=== PATIENT | female | born 1980 | race African-American/Black ===

== ENCOUNTER 2018-07-07 08:24 | Emergency (ER) | payer SELFPAY ==
[2018-07-07] MEDS ORDERED: ONDANSETRON 4 MG/2 ML VIAL ONE (09:03)
[2018-07-07] MEDS ORDERED: NA CHLORIDE 0.9% 1,000 ML ONE (09:03)
[2018-07-07] MEDS ORDERED: KETOROLAC 30 MG/ML INJ ONE (09:03)
[2018-07-07 09:05] LABS: Absolute Lymphocytes (CBC) 2.1 K/uL (0.7-4.9); Absolute Monocytes 0.4 K/uL (0.1-1.3); Absolute Neutrophil 4.4 K/uL (1.8-8.0); Basophils % 4.3 % (0-1.3); Eosinophils % 3.4 % (0-4.4); Hematocrit 50.2 % (36.0-45.0); Lymphocytes % 27.8 % (15.3-44.8); MPV 10.7 fL (7.6-11.3); Monocytes % 5.4 % (3.3-12.3); RBC Red Blood Cell Count 5.55 M/uL (3.86-4.86)
[2018-07-07 09:07] LABS: Urine Blood NEGATIVE (NEG); Urine Glucose 2+ (NEG); Urine Protein 2+ (NEG); Urine Specific Gravity 1.025 (1.005-1.030)
[2018-07-07 09:14] LABS: Potassium 4.4 mmol/L (3.5-5.1)
--- NOTE | 2018-07-07 10:14 | ER ---
Nurse's Notes [facility] Name: Soco Mcgrath Age: 38 yrs Sex: Female : 1980 Arrival Date: 07/07/2018 Time: 08:26 Bed 19 Private MD: Diagnosis: Nausea and vomiting;Diarrhea, unspecified;Uterine fibroids Presentation: 07/07 08:43 Presenting complaint: Patient states: N/V/D since last night, lower abdominal pain for em 3 days, reports still on LMP from 06/28/18, denies fever. Transition of care: patient was not received from another setting of care. Onset of symptoms was July 04, 2018. Risk Assessment: Do you want to hurt yourself or someone else? Patient reports no desire to harm self or others. Initial Sepsis Screen: Does the patient meet any 2 criteria? No. Patient's initial sepsis screen is negative. Does the patient have a suspected source of infection? No. Patient's initial sepsis screen is negative. Care prior to arrival: None. 08:43 Method Of Arrival: Ambulatory em 08:48 Acuity: JESSICA 3 iw Triage Assessment: 08:46 General: Appears in no apparent distress. uncomfortable, Behavior is calm, cooperative. em Pain: Complains of pain in right lower quadrant and left lower quadrant. GI: Reports diarrhea, nausea, vomiting. 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 - Social history:: Smoking status: Patient/guardian denies using tobacco. - Ebola Screening: : Patient negative for fever greater than or equal to 101.5 degrees Fahrenheit, and additional compatible Ebola Virus Disease symptoms Patient denies exposure to infectious person Patient denies travel to an Ebola-affected area in the 21 days before illness onset No symptoms or risks identified at this time. Screenin:46 Abuse screen: Denies threats or abuse. Nutritional screening: No deficits noted. em Tuberculosis screening: No symptoms or risk factors identified. Fall Risk None identified. Assessment: 08:48 General: Appears in no apparent distress. uncomfortable, Behavior is calm, cooperative, em Denies fever. Pain: Complains of pain in right lower quadrant and left lower quadrant Pain currently is 8 out of 10 on a pain scale. Quality of pain is described as crampy, Pain began 2-3 days ago. Is continuous. Neuro: Level of Consciousness is awake, alert, obeys commands, Oriented to person, place, time, situation. Cardiovascular: Capillary refill < 3 seconds Patient's skin is warm and dry. Respiratory: Airway is patent Respiratory effort is even, unlabored, Respiratory pattern is regular, symmetrical. GI: Abdomen is flat, Bowel sounds present X 4 quads. Reports diarrhea, nausea, vomiting. : Reports vaginal bleeding that is moderate flow. Derm: Skin is intact, is healthy with good turgor, Skin is pink, warm \T\ dry. Musculoskeletal: Capillary refill < 3 seconds, Range of motion: intact in all extremities. 09:40 Reassessment: US at bedside. em 10:30 Reassessment: Patient appears in no apparent distress at this time. Patient and/or em family updated on plan of care and expected duration. Pain level reassessed. Patient is alert, oriented x 3, equal unlabored respirations, skin warm/dry/pink. rates pain 5/10 Patient states feeling better. Patient states symptoms have improved. Vital Signs: 08:46 BP 113 / 90; Pulse 108; Resp 20; Temp 98.2; Pulse Ox 99% on R/A; em 09:28 BP 112 / 83; Pulse 90; Resp 18; Pulse Ox 99% on R/A; Pain 5/10; em 10:10 BP 127 / 86; Pulse 91; Resp 18; Pulse Ox 99% on R/A; em ED Course: 08:26 Patient arrived in ED. as 08:26 Kelly Khan FNP-C is PHCP. kb 08:26 Emanuel George MD is Attending Physician. kb 08:41 Urine collected: clean catch specimen, cloudy, Amount Voided: 50mL. ms 08:42 Harvey Barajas LVN is Primary Nurse. em 08:46 Arm band placed on. em 08:46 Patient has correct armband on for positive identification. Placed in gown. Bed in low em position. Call light in reach. Adult w/ patient. Pulse ox on. NIBP on. 08:48 Triage completed. iw 08:52 Initial lab(s) drawn, by me, sent to lab. Inserted saline lock: 20 gauge in right ms forearm, using aseptic technique. Blood collected. 10:09 Ultrasound completed. Patient tolerated well. Notified GLASS CLEANER/PA kelly. sg3 10:18 US Transvaginal Study (Probe) In Process Unspecified. EDMS 10:30 No provider procedures requiring assistance completed. IV discontinued, intact, em bleeding controlled, No redness/swelling at site. Pressure dressing applied. Administered Medications: 09:07 Drug: TORadol 30 mg Route: IVP; Site: right forearm; iw 10:05 Follow up: Response: No adverse reaction; Pain is decreased em 09:07 Drug: NS 0.9% 1000 ml Route: IV; Rate: 1000 ml; Site: right forearm; iw 10:05 Follow up: IV Status: Completed infusion; IV Intake: 1000ml em 09:08 Drug: Zofran 4 mg Route: IVP; Site: right forearm; iw 10:05 Follow up: Response: No adverse reaction; Nausea is decreased em Intake: 10:05 IV: 1000ml; Total: 1000ml. em Outcome: 10:13 Discharge ordered by . kb 10:30 Discharged to home ambulatory. em 10:30 Condition: good 10:30 Discharge instructions given to patient, Instructed on discharge instructions, follow up and referral plans. medication usage, Demonstrated understanding of instructions, follow-up care, medications, Prescriptions given X 2. 10:33 Patient left the ED. em Signatures: Dispatcher [employer] EDKelly Adkins, CEMENT DESPATCH OPERATOR-C CEMENT DESPATCH OPERATOR-Ckb Harvey Barajas, PIANO TEACHER PIANO TEACHER em Iliana Nielsen Irene, CATINA RN Aishwarya Aguirre ms, [place] sg3 Corrections: (The following items were deleted from the chart) 09:08 09:07 NS 0.9% 1000 ml IV at 1000 ml in right antecubital iw iw
--- NOTE | 2018-07-07 10:14 | EDPHYS ---
Physician Documentation [facility] Name: Soco Mcgrath Age: 38 yrs Sex: Female : 1980 Arrival Date: 07/07/2018 Time: 08:26 Bed 19 Private MD: ED Physician Emanuel George HPI: 07/07 10:09 This 38 yrs old Black Female presents to ER via Ambulatory with complaints of Pelvic kb Pain, Vomiting/Diarrhea. 10:09 The patient presents with abdominal pain in the lower abdomen. Onset: The kb symptoms/episode began/occurred 3 day(s) ago. The symptoms do not radiate. Associated signs and symptoms: Pertinent positives: nausea, vomiting, and diarrhea, vaginal bleeding, Pertinent negatives: anorexia, blood in stools, chest pain, constipation, dysuria, fever, headache, palpitations, shortness of breath, vaginal discharge, vomiting blood. The symptoms are described as constant. Modifying factors: The symptoms are alleviated by nothing, the symptoms are aggravated by nothing. Severity of pain: At its worst the pain was moderate in the emergency department the pain is unchanged. The patient has not experienced similar symptoms in the past. The patient has not recently seen a physician. Pt c/o pain in uterus for 3 days and menstrual cycle that has been going on for 9 days. Reports n/v/d started last night. 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 - Social history:: Smoking status: Patient/guardian denies using tobacco. - Ebola Screening: : Patient negative for fever greater than or equal to 101.5 degrees Fahrenheit, and additional compatible Ebola Virus Disease symptoms Patient denies exposure to infectious person Patient denies travel to an Ebola-affected area in the 21 days before illness onset No symptoms or risks identified at this time. ROS: 10:07 Constitutional: Negative for fever, chills, and weight loss, Cardiovascular: Negative kb for chest pain, palpitations, and edema, Respiratory: Negative for shortness of breath, cough, wheezing, and pleuritic chest pain, Back: Negative for injury and pain, MS/Extremity: Negative for injury and deformity, Skin: Negative for injury, rash, and discoloration, Neuro: Negative for headache, weakness, numbness, tingling, and seizure. 10:07 Abdomen/GI: Positive for abdominal pain, nausea, vomiting, and diarrhea, Negative for constipation, abdominal cramps, abdominal distension, anorexia. 10:07 : Positive for vaginal bleeding. Exam: 10:07 Constitutional: This is a well developed, well nourished patient who is awake, alert, kb and in no acute distress. Head/Face: Normocephalic, atraumatic. Chest/axilla: Normal chest wall appearance and motion. Nontender with no deformity. No lesions are appreciated. Cardiovascular: Regular rate and rhythm with a normal S1 and S2. No gallops, murmurs, or rubs. Normal PMI, no JVD. No pulse deficits. Respiratory: Lungs have equal breath sounds bilaterally, clear to auscultation and percussion. No rales, rhonchi or wheezes noted. No increased work of breathing, no retractions or nasal flaring. Skin: Warm, dry with normal turgor. Normal color with no rashes, no lesions, and no evidence of cellulitis. MS/ Extremity: Pulses equal, no cyanosis. Neurovascular intact. Full, normal range of motion. Neuro: Awake and alert, GCS 15, oriented to person, place, time, and situation. Cranial nerves II-XII grossly intact. Motor strength 5/5 in all extremities. Sensory grossly intact. Cerebellar exam normal. Normal gait. 10:07 Abdomen/GI: Inspection: obese Bowel sounds: normal, in all quadrants, Palpation: soft, in all quadrants, mild abdominal tenderness, in the right lower quadrant and left lower quadrant. Vital Signs: 08:46 BP 113 / 90; Pulse 108; Resp 20; Temp 98.2; Pulse Ox 99% on R/A; em 09:28 BP 112 / 83; Pulse 90; Resp 18; Pulse Ox 99% on R/A; Pain 5/10; em 10:10 BP 127 / 86; Pulse 91; Resp 18; Pulse Ox 99% on R/A; em MDM: 08:28 Patient medically screened. kb 10:09 Data reviewed: vital signs, nurses notes. Data interpreted: Pulse oximetry: on room air kb is 99 %. Interpretation: normal. Counseling: I had a detailed discussion with the patient and/or guardian regarding: the historical points, exam findings, and any diagnostic results supporting the discharge/admit diagnosis, lab results, radiology results, the need for outpatient follow up, a family practitioner, an OB/Gyne specialist, to return to the emergency department if symptoms worsen or persist or if there are any questions or concerns that arise at home. 07/07 08:41 Order name: Urine Dipstick--Ancillary (enter results); Complete Time: 09:13 eb 07/07 08:41 Order name: Urine --Ancillary (enter results); Complete Time: 09:13 eb 07/07 08:46 Order name: Basic Metabolic Panel; Complete Time: 09:14 kb 07/07 08:46 Order name: CBC with Diff; Complete Time: 09:13 kb 07/07 08:46 Order name: US Transvaginal Study (Probe) kb 07/07 08:46 Order name: IV Saline Lock; Complete Time: 08:52 kb 07/07 08:46 Order name: Labs collected and sent; Complete Time: 08:52 kb Administered Medications: 09:07 Drug: TORadol 30 mg Route: IVP; Site: right forearm; iw 10:05 Follow up: Response: No adverse reaction; Pain is decreased em 09:07 Drug: NS 0.9% 1000 ml Route: IV; Rate: 1000 ml; Site: right forearm; iw 10:05 Follow up: IV Status: Completed infusion; IV Intake: 1000ml em 09:08 Drug: Zofran 4 mg Route: IVP; Site: right forearm; iw 10:05 Follow up: Response: No adverse reaction; Nausea is decreased em Disposition: 07/07/18 10:13 Discharged to Home. Impression: Nausea and vomiting, Diarrhea, unspecified, Uterine fibroids. - Condition is Stable. - Discharge Instructions: Food Choices to Help Relieve Diarrhea, Adult, Nausea and Vomiting, Adult, [id number], Diarrhea, Adult, [id number], Uterine Fibroids, [id number]. - Prescriptions for Bentyl 20 mg Oral Tablet - take 1 tablet by ORAL route every 6 hours As needed; 20 tablet. Zofran 4 mg Oral Tablet - take 1 tablet by ORAL route every 6 hours As needed; 20 tablet. - Medication Reconciliation Form, Thank You Letter, Antibiotic Education, Prescription Opioid Use form. - Follow up: Emergency Department; When: As needed; Reason: Worsening of condition. Follow up: Private Physician; When: 2 - 3 days; Reason: Recheck today's complaints, Continuance of care, Re-evaluation by your physician. Signatures: Dispatcher [employer] EDKelly Adkins, LUIS MOBILE LOUNGE DRIVER-Ckb Harvey Barajas, MEASUREMENT AND VERIFICATION ENGINEER MEASUREMENT AND VERIFICATION ENGINEER em Jolene Barron RN RN iw Corrections: (The following items were deleted from the chart) 10:33 10:13 07/07/2018 10:13 Discharged to Home. Impression: Nausea and vomiting; Diarrhea, em unspecified; Uterine fibroids. Condition is Stable. Forms are Medication Reconciliation Form, Thank You Letter, Antibiotic Education, Prescription Opioid Use. Follow up: Emergency Department; When: As needed; Reason: Worsening of condition. Follow up: Private Physician; When: 2 - 3 days; Reason: Recheck today's complaints, Continuance of care, Re-evaluation by your physician. kb
--- NOTE | 2018-07-07 10:46 | RAD REPORT ---
EXAM DESCRIPTION: US - Transvaginal Study Probe - 07/07/2018 10:17 am CLINICAL HISTORY: ABD PAIN Pelvic pain. COMPARISON: No comparisons FINDINGS: The uterus is normal in size, shape and echotexture. The uterus measures 8.1 x 4.8 x 4.2 c m. Multiple myometrial masses are present compatible with fibroids the largest in the fundal region m easuring 3.7 x 3.3 cm, intramural position. The endometrial stripe measures 6 mm, normal. Both ovaries were obscured by bowel gas in the pelvis and nonvisualized. No significant pelvic ascites. IMPRESSION: Leiomyomatous uterus.
== END 2018-07-07 10:33 | disposition home or self-care (01) ==
LOC: ER 08:24
DX: D25.9 Leiomyoma of uterus, unspecified (principal); R19.7 Diarrhea, unspecified; I10 Essential (primary) hypertension
CPT/HCPCS: 36415; 76830; 80048; 81003; 81025; 85025; J2405; J7030

== ENCOUNTER 2018-09-28 06:11 | Emergency (ER) | payer SELFPAY ==
[2018-09-28 07:04] LABS: Absolute Lymphocytes (CBC) 2.1 K/uL (0.7-4.9); Basophils % 1.2 % (0-1.3); Eosinophils % 5.2 % (0-4.4); Hematocrit 43.6 % (36.0-45.0); Lymphocytes % 35.8 % (15.3-44.8); MPV 9.9 fL (7.6-11.3); Monocytes % 6.5 % (3.3-12.3); RBC Red Blood Cell Count 4.83 M/uL (3.86-4.86)
[2018-09-28 07:07] LABS: Protime INR 0.92
[2018-09-28 07:19] LABS: BUN Blood Urea Nitrogen 5 mg/dL (7-18); Bicarbonate 23 mmol/L (21-32); Glucose Level 295 mg/dL (74-106); Potassium 3.9 mmol/L (3.5-5.1); Sodium Level 138 mmol/L (136-145)
--- NOTE | 2018-09-28 07:20 | RAD REPORT ---
EXAM DESCRIPTION: CT - Ct Stroke Brain Wo Cont - 09/28/2018 7:02 am CLINICAL HISTORY: Right-sided numbness COMPARISON: June 10, 2018 TECHNIQUE: Computed axial tomography of the head was obtained. All CT scans are performed using dose optimization technique as appropriate and may include automated exposure control or mA/KV adjustment according to patient size. FINDINGS: An intracranial bleed is not seen . The ventricles are normal in caliber. No extra-axial fluid collection is noted. Fluid within the sinuses/ mastoids is not seen. IMPRESSION: No acute intracranial abnormality is seen. If patient's symptoms persist MRI of the bra in would be recommended. Jyothi Mack of the emergency room was notified at 7:10 a.m. September 28, 2018
--- NOTE | 2018-09-28 07:41 | RAD REPORT ---
EXAM DESCRIPTION: Maria Antonia Single View09/28/2018 6:47 am CLINICAL HISTORY: Chest pain COMPARISON: none FINDINGS: The lungs appear clear of acute infiltrate. Small calcified hilar lymph nodes. The heart is probably upper limits normal size IMPRESSION: No acute abnormalities displayed
--- NOTE | 2018-09-28 07:50 | EDPHYS ---
Physician Documentation [facility] Name: Soco Mcgrath Age: 38 yrs Sex: Female : 1980 Arrival Date: 09/28/2018 Time: 06:12 Bed 5 Private MD: ED Physician Harish Bryant HPI: 09/28 07:35 This 38 yrs old Black Female presents to ER via Wheelchair with complaints of Numbness nh - right side. 07:35 Onset: The symptoms/episode began/occurred acutely, yesterday, at 22:00. Associated nh signs and symptoms: Pertinent positives: headache, Pertinent negatives: abdominal pain, chest pain, congestion, constipation, cough, diarrhea, dysuria, earache, fever, nasal discharge, seizure, shortness of breath, sore throat, vomiting, wheezing. Modifying factors: The patient symptoms are alleviated by nothing, the patient symptoms are aggravated by nothing. The patient has not experienced similar symptoms in the past. The patient has not recently seen a physician. Patient reports right sided pain and weakness in face, arm, and leg. States that the symptoms came on at 10pm last night and have been persistent. 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 - Social history:: Smoking status: Patient uses tobacco products, smokes one pack cigarettes per day. Patient uses alcohol, occasionally. street drugs, ecstacy. - Ebola Screening: : Patient negative for fever greater than or equal to 101.5 degrees Fahrenheit, and additional compatible Ebola Virus Disease symptoms Patient denies exposure to infectious person Patient denies travel to an Ebola-affected area in the 21 days before illness onset. ROS: 07:35 Constitutional: Negative for fever, chills, and weight loss, Eyes: Negative for injury, nh pain, redness, and discharge, ENT: Negative for injury, pain, and discharge, Neck: Negative for injury, pain, and swelling, Cardiovascular: Negative for chest pain, palpitations, and edema, Respiratory: Negative for shortness of breath, cough, wheezing, and pleuritic chest pain, Abdomen/GI: Negative for abdominal pain, nausea, vomiting, diarrhea, and constipation, Back: Negative for injury and pain, : Negative for injury, bleeding, discharge, and swelling, Skin: Negative for injury, rash, and discoloration, Psych: Negative for depression, anxiety, suicide ideation, homicidal ideation, and hallucinations, Allergy/Immunology: Negative for hives, rash, and allergies, Endocrine: Negative for neck swelling, polydipsia, polyuria, polyphagia, and marked weight changes, Hematologic/Lymphatic: Negative for swollen nodes, abnormal bleeding, and unusual bruising. 07:35 MS/extremity: Positive for pain, tingling, of the right arm and right leg. 07:35 Neuro: Positive for dizziness, headache, speech changes, tingling, weakness, of the face, right arm and right leg, Negative for altered mental status, hearing loss, seizure activity, syncope, visual changes. Exam: 07:35 Constitutional: This is a well developed, well nourished patient who is awake, alert, nh and in no acute distress. Head/Face: Normocephalic, atraumatic. Eyes: Pupils equal round and reactive to light, extra-ocular motions intact. Lids and lashes normal. Conjunctiva and sclera are non-icteric and not injected. Cornea within normal limits. Periorbital areas with no swelling, redness, or edema. ENT: Nares patent. No nasal discharge, no septal abnormalities noted. Tympanic membranes are normal and external auditory canals are clear. Oropharynx with no redness, swelling, or masses, exudates, or evidence of obstruction, uvula midline. Mucous membranes moist. Neck: Trachea midline, no thyromegaly or masses palpated, and no cervical lymphadenopathy. Supple, full range of motion without nuchal rigidity, or vertebral point tenderness. No Meningismus. Chest/axilla: Normal chest wall appearance and motion. Nontender with no deformity. No lesions are appreciated. Cardiovascular: Regular rate and rhythm with a normal S1 and S2. No gallops, murmurs, or rubs. Normal PMI, no JVD. No pulse deficits. Respiratory: Lungs have equal breath sounds bilaterally, clear to auscultation and percussion. No rales, rhonchi or wheezes noted. No increased work of breathing, no retractions or nasal flaring. Abdomen/GI: Soft, non-tender, with normal bowel sounds. No distension or tympany. No guarding or rebound. No evidence of tenderness throughout. Back: No spinal tenderness. No costovertebral tenderness. Full range of motion. Skin: Warm, dry with normal turgor. Normal color with no rashes, no lesions, and no evidence of cellulitis. Psych: Awake, alert, with orientation to person, place and time. Behavior, mood, and affect are within normal limits. 07:35 Neuro: Orientation: is normal, Mentation: is normal, Memory: is normal, Cranial nerves: grossly normal, Cerebellar function: is grossly normal, Motor: is normal, Sensation: pin prick is decreased in the right leg, light touch is decreased in the right arm, Gait: unable to assess, the patient is nonambulatory, Deep tendon reflexes are 2+ (normal) in the , Babinski testing is normal, seizure activity, is not displayed by the patient. Vital Signs: 06:25 BP 116 / 100; Pulse 100; Resp 17; Temp 97.7; Pulse Ox 96% ; Weight 117.93 kg; Height 5 rr5 ft. 4 in. (162.56 cm); Pain 8/10; 06:54 BP 134 / 80; Pulse 75; Resp 18; Pulse Ox 100% ; rr5 08:30 BP 165 / 110; Pulse 99; Resp 16; Temp 97.8; Pulse Ox 98% on R/A; bp 06:25 Body Mass Index 44.63 (117.93 kg, 162.56 cm) rr5 NIH Stroke Scale Scores: 07:35 NIHSS Score: 2 nh MDM: 06:20 Patient medically screened. la 07:35 Data reviewed: vital signs, nurses notes, lab test result(s), radiologic studies, I nh have discussed the patient's presentation/case with the attending Emergency Department Physician; and as a result, I will admit patient. Counseling: I had a detailed discussion with the patient and/or guardian regarding: the historical points, exam findings, and any diagnostic results supporting the discharge/admit diagnosis, lab results, radiology results, the need to transfer to another facility, for higher level of care, [facility] does not immediately have the required specialist. ED course: Spoke with neuro and hospitalist at [facility]. Will accept transfer. Patient not given TPA due to time since symptom onset. 09/28 06:25 Order name: Basic Metabolic Panel; Complete Time: 07:20 la 09/28 06:25 Order name: CBC with Diff; Complete Time: 07:14 la 09/28 06:25 Order name: Protime (+inr); Complete Time: 07:14 la 09/28 06:25 Order name: Ptt, Activated; Complete Time: 07:14 la 09/28 06:25 Order name: CT Stroke Brain w/o Contrast; Complete Time: 07:50 la 09/28 06:25 Order name: Stroke CXR 1 View; Complete Time: 07:50 la 09/28 06:25 Order name: EKG; Complete Time: 06:26 la 09/28 06:25 Order name: Accucheck; Complete Time: 06:33 la 09/28 06:25 Order name: Cardiac monitoring; Complete Time: 06:38 la 09/28 06:25 Order name: EKG - Nurse/Tech; Complete Time: 06:38 la 09/28 06:25 Order name: IV Saline Lock; Complete Time: 06:33 la 09/28 06:25 Order name: Labs collected and sent; Complete Time: 06:33 la 09/28 06:25 Order name: NPO; Complete Time: 06:33 la 09/28 06:25 Order name: O2 Per Protocol; Complete Time: 06:33 la 09/28 06:25 Order name: O2 Sat Monitoring; Complete Time: 06:33 la 09/28 06:25 Order name: Stroke Swallow Screen; Complete Time: 06:33 la 09/28 06:45 Order name: NPO; Complete Time: 06:47 la Administered Medications: No medications were administered Point of Care Testing: Blood Glucose: 06:38 Blood Glucose: 290 mg/dL; rr5 Ranges: Critical Glucose Levels:Adult <50 mg/dl or >400 mg/dl <40 mg/dl or >180 mg/dl Disposition: 09/28/18 07:49 Transfer ordered to [facility]. Diagnosis are Weakness, Paresthesia of skin. - Reason for transfer: Higher level of care. - Accepting physician is NEURO. - Condition is Stable. - Problem is new. - Symptoms are unchanged. NIH Stroke Scale - NIH Stroke Score Date: 09/28/2018 Time: 07:35 Total Score = 2 1a. Level of Consciousness (LOC) - 0(Alert) 1b. Level of Consciousness (LOC) (Year \T\ Age) - 0(Both) 1c. LOC Commands (Open \T\ Closes Eyes/Advertising Photographer) - 0(Both) 2. Best Gaze (Lateral Gaze Paresis) - 0(Normal) 3. Visual Field Loss - 0(No visual loss) 4. Facial Palsy - 0(Normal) 5a. Left Arm: Motor (10-second hold) - 0(No drift) 5b. Right Arm: Motor (10-second hold) - 0(No drift) 6a. Left Leg: Motor (5-second hold - always test supine) - 0(No drift) 6b. Right Leg: Motor (5-second hold - always test supine) - 1(Drift) 7. Limb Ataxia (finger/nose \T\ heel/guan - test with eyes open) - 0(Absent) 8. Sensory Loss (pinprick arms/legs/face) - 1(Mild to moderate loss) 9. Best Language: Aphasia (description/naming/reading) - 0(No aphasia) 10. Dysarthria (speech clarity - read or repeat words) - 0(Normal) 11. Extinction and Inattention (visual/tactile/auditory/spatial/personal) - 0(No abnormality) Initials: la Addendum: 09/29/2018 10:00 Co-signature as Attending Physician, Harish Bryant MD I agree with the [facility] assessment and plan of care. Signatures: Dispatcher [employer] [facility] Harish Bryant MD MD [facility] Jyothi Mack, BILLIARD PLAYER BILLIARD PLAYER la Christophe Villeda, RN RN Aldo Wilson, RN RN rr5 Corrections: (The following items were deleted from the chart) 09/28 09:13 07:49 09/28/2018 07:49 Transfer ordered to [facility]. bp Diagnosis is Weakness; Paresthesia of skin. Reason for transfer: Higher level of care. Accepting physician is NEURO. Condition is Stable. Problem is new. Symptoms are unchanged. la
--- NOTE | 2018-09-28 07:50 | ER ---
Nurse's Notes [facility] Name: Soco Mcgrath Age: 38 yrs Sex: Female : 1980 Arrival Date: 09/28/2018 Time: 06:12 Bed 5 Private MD: Diagnosis: Weakness;Paresthesia of skin Presentation: 09/28 06:20 Presenting complaint: Patient states: I am having a right side numbness started 10PM rr5 last night. i can't feel anything on my right side. i feel dizzy and slow to speak. 06:20 Transition of care: patient was not received from another setting of care. Onset of rr5 symptoms was September 27, 2018 at 22:00. Risk Assessment: Do you want to hurt yourself or someone else? Patient reports no desire to harm self or others. Initial Sepsis Screen: Does the patient meet any 2 criteria? No. Patient's initial sepsis screen is negative. Does the patient have a suspected source of infection? No. Patient's initial sepsis screen is negative. Care prior to arrival: None. 06:20 Method Of Arrival: Wheelchair rr5 06:20 Acuity: JESSICA 3 rr5 Triage Assessment: 07:00 General: Appears in no apparent distress. comfortable, Behavior is cooperative, bp appropriate for age, anxious. 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 - Social history:: Smoking status: Patient uses tobacco products, smokes one pack cigarettes per day. Patient uses alcohol, occasionally. street drugs, ecstacy. - Ebola Screening: : Patient negative for fever greater than or equal to 101.5 degrees Fahrenheit, and additional compatible Ebola Virus Disease symptoms Patient denies exposure to infectious person Patient denies travel to an Ebola-affected area in the 21 days before illness onset. Screenin:25 VAN Screening: Arm Drift: Patient shows no arm weakness. Patient is VAN negative. rr5 06:34 Abuse screen: Denies threats or abuse. Nutritional screening: No deficits noted. jd3 Tuberculosis screening: No symptoms or risk factors identified. Fall Risk IV access (20 points). Ambulatory Aid- None/Bed Rest/Nurse Assist (0 pts). Gait- Normal/Bed Rest/Wheelchair (0 pts) Mental Status- Oriented to own ability (0 pts). Total Vieira Fall Scale indicates No Risk (0-24 pts). 06:45 Patient has been NPO before screening. The patient is alert, able to follow commands. rr5 The patient exhibits slurred or garbled speech. Provider notified of indication for Speech Therapy consult. The patient is not exhibiting difficulty speaking. The patient does not exhibit difficulty understanding words. The patient is able to swallow own secretions with no drooling or need for suction. Patient tolerated one teaspoon of water. No drooling, immediate coughing, gurgling, or clearing of the throat was noted. The patient tolerated 90mL of water. No drooling, immediate coughing, gurgling, or clearing of the throat was noted. able to finish 90 ml of water but coughing noted after. ED provider informed maintain on NPO. The patient failed the bedside swallow screening. The patient will be kept NPO until cleared by Speech Therapy or Physician. Provider notified of bedside swallow screening results: Jyothi VELAZQUEZ. Assessment: 06:20 General: Appears in no apparent distress. uncomfortable, Behavior is calm, cooperative, rr5 appropriate for age. 06:20 Pain: Complains of pain in right side of the body Pain does not radiate. Pain currently rr5 is 8 out of 10 on a pain scale. Quality of pain is described as aching, Pain began gradually, Is intermittent. Neuro: Level of Consciousness is awake, alert, obeys commands, Oriented to person, place, time, situation, Appropriate for age Contract Mail Carrier are equal bilaterally Moves all extremities. Full function Speech slow to speak. Pupils are PERRLA, Numbness in right side Reports numbness in right side since 10 pm last night 09/27/18. Cardiovascular: Capillary refill < 3 seconds Patient's skin is warm and dry. Respiratory: Airway is patent Respiratory effort is even, unlabored, Respiratory pattern is regular, symmetrical. GI: No signs and/or symptoms were reported involving the gastrointestinal system. : No signs and/or symptoms were reported regarding the genitourinary system. EENT: No signs and/or symptoms were reported regarding the EENT system. Derm: Skin is intact, Skin temperature is warm. Musculoskeletal: Capillary refill < 3 seconds, Range of motion:. 06:54 Reassessment: Patient appears in no apparent distress at this time. send for CT brain rr5 via stretcher. 07:00 Reassessment: RECD REPORT FROM MELY DOMINIQUE. 38YO BF P/W R SIDED NUMBNESS SINCE 2199. bp TRANSFER IN PROCESS. 08:58 Reassessment: REPORT TO DESI DOMINIQUE. TRANSPORT PENDING. bp 09:12 Reassessment: [facility] AT B/S FOR TRANSPORT. bp Vital Signs: 06:25 BP 116 / 100; Pulse 100; Resp 17; Temp 97.7; Pulse Ox 96% ; Weight 117.93 kg; Height 5 rr5 ft. 4 in. (162.56 cm); Pain 8/10; 06:54 BP 134 / 80; Pulse 75; Resp 18; Pulse Ox 100% ; rr5 08:30 BP 165 / 110; Pulse 99; Resp 16; Temp 97.8; Pulse Ox 98% on R/A; bp 06:25 Body Mass Index 44.63 (117.93 kg, 162.56 cm) rr5 NIH Stroke Scale Scores: 07:35 NIHSS Score: 2 wy ED Course: 06:12 Patient arrived in ED. am2 06:20 [facility] nh 06:20 Harish Bryant MD is Attending Physician. nh 06:23 Mely Marie, RN is Primary Nurse. rr5 06:25 Triage completed. rr5 06:30 Inserted saline lock: 20 gauge in right antecubital area, using aseptic technique. jd3 Blood collected. 06:34 Patient has correct armband on for positive identification. Bed in low position. Call jd3 light in reach. Side rails up X 1. Adult w/ patient. 06:34 Arm band placed on. jd3 06:44 X-ray completed. Portable x-ray completed in exam room. Patient tolerated procedure kw well. 06:45 Stroke CXR 1 View In Process Unspecified. EDMS 06:50 Inserted saline lock: 20 gauge in left antecubital area, using aseptic technique. Blood rr5 collected. 07:02 CT Stroke Brain w/o Contrast In Process Unspecified. EDMS 08:39 Primary Nurse role handed off by Mely Marie, RN bp 08:39 Christophe Villeda, RN is Primary Nurse. bp 09:12 No provider procedures requiring assistance completed. Patient transferred, IV remains bp in place. Administered Medications: No medications were administered Point of Care Testing: Blood Glucose: 06:38 Blood Glucose: 290 mg/dL; rr5 Ranges: Outcome: 07:49 ER care complete, transfer ordered by MD. wy 09:12 Transferred by ground EMS to [facility], Transfer form completed. bp 09:12 Condition: stable 09:12 Instructed on the need for transfer. 09:13 Patient left the ED. bp NIH Stroke Scale - NIH Stroke Score Date: 09/28/2018 Time: 07:35 Total Score = 2 1a. Level of Consciousness (LOC) - 0(Alert) 1b. Level of Consciousness (LOC) (Year \T\ Age) - 0(Both) 1c. LOC Commands (Open \T\ Closes Eyes/Scientific Informatics Project Leader) - 0(Both) 2. Best Gaze (Lateral Gaze Paresis) - 0(Normal) 3. Visual Field Loss - 0(No visual loss) 4. Facial Palsy - 0(Normal) 5a. Left Arm: Motor (10-second hold) - 0(No drift) 5b. Right Arm: Motor (10-second hold) - 0(No drift) 6a. Left Leg: Motor (5-second hold - always test supine) - 0(No drift) 6b. Right Leg: Motor (5-second hold - always test supine) - 1(Drift) 7. Limb Ataxia (finger/nose \T\ heel/guan - test with eyes open) - 0(Absent) 8. Sensory Loss (pinprick arms/legs/face) - 1(Mild to moderate loss) 9. Best Language: Aphasia (description/naming/reading) - 0(No aphasia) 10. Dysarthria (speech clarity - read or repeat words) - 0(Normal) 11. Extinction and Inattention (visual/tactile/auditory/spatial/personal) - 0(No abnormality) Initials: wy Signatures: Dispatcher [employer] EDMS Jyothi Mack, MARCUS PLANNED GIVING OFFICER wy Liliane Bonilla Amanda am2 Franchesca Martineznathon, RN RN jd3 Christophe Villeda, RN RN bp Mely Marie, RN RN rr5
--- NOTE | 2018-09-29 09:12 | EKG ---
Test Date: 2018-09-28 Test Time: 06:34:37 Evaluation Engineer: RR MEASUREMENT RESULTS: Intervals: Rate: 96 NV: 152 QRSD: 76 QT: 362 QTc: 457 [place]: P: 73 NV: 152 QRS: 61 T: -17 INTERPRETIVE STATEMENTS: Normal sinus rhythm T wave abnormality, consider inferior ischemia T wave abnormality, consider anterolateral ischemia Abnormal ECG No previous ECG available for comparison Electronically Signed On 09-29-18 09:10:50 CDT by Azael Gregory
== END 2018-09-28 09:13 | disposition short-term general hospital (02) ==
LOC: ER 06:11
DX: R53.1 Weakness (principal); I10 Essential (primary) hypertension; E11.9 Type 2 diabetes mellitus without complications; F17.210 Nicotine dependence, cigarettes, uncomplicated
CPT/HCPCS: 36415; 70450; 71045; 80048; 82962; 85025; 85610; 85730; 93005; 99285

== ENCOUNTER 2019-12-11 15:32 | Emergency (ER) | payer SELFPAY ==
[2019-12-11] MEDS ORDERED: NA CHLORIDE 0.9% 1,000 ML ONE (17:59)
[2019-12-11] MEDS ORDERED: LIDOCAINE 1% MPF 30 ML VIAL ONE (18:10)
[2019-12-11] MEDS ORDERED: BUPIVACAINE 0.5% PF 10 ML VIAL ONE (18:11)
[2019-12-11] MEDS ORDERED: LIDOCAINE 2% MPF 5 ML VIAL ONE (18:11)
[2019-12-11 18:16] LABS: Absolute Lymphocytes (CBC) 2.4 K/uL (0.7-4.9); Basophils % 0.9 % (0-1.3); Lymphocytes % 19.6 % (15.3-44.8); MPV 9.8 fL (7.6-11.3); RBC Red Blood Cell Count 5.06 M/uL (3.86-4.86)
--- NOTE | 2019-12-11 19:11 | EDPHYS ---
Physician Documentation [facility] Name: Soco Mcgrath Age: 39 yrs Sex: Female : 1980 Arrival Date: 12/11/2019 Time: 15:35 Bed 15 Private MD: ED Physician Harish Bryant HPI: 12/10 19:32 This 39 yrs old Black Female presents to ER via Ambulatory with complaints of Abscess. kdr 19:32 The patient presents with an abscess of the right labia minora, the patient presents kdr with a swollen area of the right labia minora. Description: The affected area is large, confluent, erythematous, fluctuant, raised, swollen, tense. Onset: The symptoms/episode began/occurred gradually, 1 week(s) ago. Possible cause(s): unknown. Associated signs and symptoms: Pertinent positives: erythema, swelling. The patient presents with. 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 - Social history:: Smoking status: Patient reports the use of cigarette tobacco products, smokes one-half pack cigarettes per day. ROS: 19:34 Constitutional: Negative for fever, chills, and weight loss, Eyes: Negative for injury, kdr pain, redness, and discharge. 19:34 : Positive for Swelling in area of right Bartholin's cyst. Exam: 19:34 Constitutional: This is a well developed, well nourished patient who is awake, alert, kdr and in no acute distress. Head/Face: Normocephalic, atraumatic. 19:34 : Pelvic Exam: External exam: Bartholin's cyst present, a female bad work gatherer was present for the exam. Vital Signs: 15:59 Resp 18; Temp 98.2; Pulse Ox 99% ; Weight 117.93 kg; Height 5 ft. 4 in. (162.56 cm); iw Pain 9/10; 16:01 BP 157 / 119; Pulse 110; ll1 17:39 BP 149 / 98; Pulse 93; Resp 16; Pulse Ox 100% ; bp 18:40 BP 134 / 83; Pulse 86; Resp 16; Pulse Ox 100% ; bp 19:46 BP 147 / 98; Pulse 89; Resp 18; Pulse Ox 100% on R/A; 15:59 Body Mass Index 44.63 (117.93 kg, 162.56 cm) Procedures: 19:34 I \T\ D: Incision and drainage was performed for an abscess of the Bartholin's gland. kdr Prepped with Betadine, Anesthetized with 2.5 ml's 1% Lidocaine. Bupivicaine 2.5 ml. Incised with #11 blade. Drained large amount purulent fluid. bloody fluid. Loculations removed. Abscess cavity explored. Packed with Word Cath. Dressing: sterile 4x4 gauze, the patient tolerated the procedure well. MDM: 19:11 Patient medically screened. kdr 19:39 Data reviewed: vital signs, nurses notes. Counseling: I had a detailed discussion with kdr the patient and/or guardian regarding: the historical points, exam findings, and any diagnostic results supporting the discharge/admit diagnosis, the need for outpatient follow up. 12/10 17:33 Order name: CBC with Diff kdr 12/10 18:55 Order name: CBC Smear Scan EDMS 12/10 17:33 Order name: IV Saline Lock; Complete Time: 18:01 [facility] 12/10 17:33 Order name: Labs collected and sent; Complete Time: 18:01 [facility] Administered Medications: 18:00 Drug: NS 0.9% 1000 ml Route: IV; Rate: 1 bolus; Site: left forearm; bp 19:46 Follow up: Response: No adverse reaction; IV Status: Completed infusion 19:12 Drug: [place] 10 mg-325 mg 1 tabs Route: PO; 19:46 Follow up: Response: No adverse reaction; Pain is decreased; RASS: Alert and Calm (0) Disposition: 12/11/19 19:11 Discharged to Home. Impression: Abscess of Bartholin's gland. - Condition is Stable. - Discharge Instructions: Bartholin Cyst or Abscess, Incision and Drainage, Bartholin Cyst or Abscess, [id number]. - Prescriptions for Tylenol- Codeine #3 300-30 mg Oral Tablet - take 2 tablets by ORAL route every 6 hours As needed; 16 tablet. Bactrim DS 800- 160 mg Oral Tablet - take 1 tablet by ORAL route every 12 hours for 7 days; 14 tablet. - Medication Reconciliation Form, Thank You Letter, Antibiotic Education, Prescription Opioid Use form. - Follow up: Private Physician; When: 2 - 3 days; Reason: If symptoms return, Further diagnostic work-up, Recheck today's complaints, Continuance of care, Re-evaluation by your physician. - Problem is new. - Symptoms have improved. Signatures: Dispatcher [employer] EDIN Harish Bryant MD MD kdr Thompson, [facility], [facility] Christophe Villeda, RN RN bp Raymond Morrissey RN RN ll1 Corrections: (The following items were deleted from the chart) 19:46 18:22 Labs - recollect needed ordered. [facility] 19:46 19:11 12/11/2019 19:11 Discharged to Home. Impression: Abscess of Bartholin's gland. Condition is Stable. Forms are Medication Reconciliation Form, Thank You Letter, Antibiotic Education, Prescription Opioid Use. Follow up: Private Physician; When: 2 - 3 days; Reason: If symptoms return, Further diagnostic work-up, Recheck today's complaints, Continuance of care, Re-evaluation by your physician. Problem is new. Symptoms have improved. kdr
--- NOTE | 2019-12-11 19:11 | ER ---
Nurse's Notes [facility] Name: Soco Mcgrath Age: 39 yrs Sex: Female : 1980 Arrival Date: 12/11/2019 Time: 15:35 Bed 15 Private MD: Diagnosis: Abscess of Bartholin's gland Presentation: 12/10 15:59 Chief complaint: Patient states: Reports abscess to right side of perineum for 1 week. ll1 Bloody drainage at times. No fever. Coronavirus screen: Client denies travel out of the [place] in the last 14 days. At this time, the client does not indicate any symptoms associated with coronavirus-19. Ebola Screen: Patient denies travel to an Ebola-affected area in the 21 days before illness onset. Initial Sepsis Screen: Does the patient meet any 2 criteria? No. Patient's initial sepsis screen is negative. Risk Assessment: Do you want to hurt yourself or someone else? Patient reports no desire to harm self or others. Onset of symptoms was December 05, 2019. 15:59 Method Of Arrival: Ambulatory 1 15:59 Acuity: JESSICA 3 ll1 19:15 Initial Sepsis Screen: Does the patient have a suspected source of infection? Yes: wh Other: Bartholin Cyst. Triage Assessment: 17:10 General: Appears in no apparent distress. uncomfortable, Behavior is cooperative, bp appropriate for age, anxious. Pain: Complains of pain in pelvis. EENT: No deficits noted. Neuro: No deficits noted. Cardiovascular: No deficits noted. Respiratory: No deficits noted. GI: No signs and/or symptoms were reported involving the gastrointestinal system. : No signs and/or symptoms were reported regarding the genitourinary system. Derm: Abscess located on groin. Musculoskeletal: No deficits noted. 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 - Social history:: Smoking status: Patient reports the use of cigarette tobacco products, smokes one-half pack cigarettes per day. Screenin:10 Abuse screen: Denies threats or abuse. Denies injuries from another. Nutritional bp screening: No deficits noted. Tuberculosis screening: No symptoms or risk factors identified. Fall Risk None identified. Assessment: 17:10 General: SEE TRIAGE NOTE. bp 18:36 Reassessment: PHLEBOTOMY CONTACTED FOR RECOLLECT. I\T\D PENDING. bp 18:45 Reassessment: MD AT B/S FOR I\T\D. bp 19:15 Reassessment: Per MD Bryant blood works not needed at this time, cancel recollect wh order. 19:15 GI: Bowel sounds present X 4 quads. Abd is soft and non tender X 4 quads. wh Vital Signs: 15:59 Resp 18; Temp 98.2; Pulse Ox 99% ; Weight 117.93 kg; Height 5 ft. 4 in. (162.56 cm); iw Pain 9/10; 16:01 BP 157 / 119; Pulse 110; ll1 17:39 BP 149 / 98; Pulse 93; Resp 16; Pulse Ox 100% ; bp 18:40 BP 134 / 83; Pulse 86; Resp 16; Pulse Ox 100% ; bp 19:46 BP 147 / 98; Pulse 89; Resp 18; Pulse Ox 100% on R/A; wh 15:59 Body Mass Index 44.63 (117.93 kg, 162.56 cm) iw ED Course: 15:35 Patient arrived in ED. mr 16:00 Triage completed. ll1 16:00 Arm band placed on. ll1 17:10 Patient has correct armband on for positive identification. Bed in low position. Call bp light in reach. Side rails up X2. 17:20 Christophe Villeda, CATINA is Primary Nurse. bp 17:32 Harish Bryant MD is Attending Physician. kdr 18:00 Inserted saline lock: 20 gauge in left forearm, using aseptic technique. Blood bp collected. 19:00 Assist provider with I \T\ D: of an abscess on Bartholin's gland Set up I\T\D tray. wh Performed by Harish Bryant MD Wound packed. Dressing with 4X4s, Patient tolerated well. Danielle as workers' compensation commissioner. 19:45 IV discontinued, intact, bleeding controlled, No redness/swelling at site. wh Administered Medications: 18:00 Drug: NS 0.9% 1000 ml Route: IV; Rate: 1 bolus; Site: left forearm; bp 19:46 Follow up: Response: No adverse reaction; IV Status: Completed infusion 19:12 Drug: Palacios 10 mg-325 mg 1 tabs Route: PO; 19:46 Follow up: Response: No adverse reaction; Pain is decreased; RASS: Alert and Calm (0) Outcome: 19:11 Discharge ordered by . [facility] 19:44 Discharged to home ambulatory. 19:44 Condition: stable 19:44 Discharge instructions given to patient, Instructed on discharge instructions, follow up and referral plans. no drinking with medication, no driving heavy equipment, medication usage, wound care, Demonstrated understanding of instructions, follow-up care, medications, wound care, Prescriptions given X 2. 19:46 Patient left the ED. Signatures: Harish Bryant MD MD kdr Rivera, Estela mr Jolene Barron, RN RN iw Jaclyn Moreno Christophe Villeda RN RN Raymond Lane RN RN ll1 Corrections: (The following items were deleted from the chart) 17:11 15:59 Resp 18bpm; Temp 98.2F; 117.93 kg; Height 5 ft. 4 in.; BMI: 44.6; Pain 9/10; ll1 iw 17:22 16:00 General: Appears in no apparent distress. uncomfortable, Behavior is cooperative, bp appropriate for age, anxious, bp 17:22 16:00 Pain: Complains of pain in pelvis bp bp 17:22 16:00 EENT: No deficits noted. bp bp 17:22 16:00 Neuro: No deficits noted. bp bp 17:22 16:00 Cardiovascular: No deficits noted. bp bp 17:22 16:00 Respiratory: No deficits noted. bp bp 17:22 16:00 GI: No signs and/or symptoms were reported involving the gastrointestinal system. bp bp 17:22 16:00 : No signs and/or symptoms were reported regarding the genitourinary system. bp bp 17:22 16:00 Derm: Abscess located on groin bp bp 17:22 16:00 Musculoskeletal: No deficits noted. bp bp
[2019-12-11] MEDS ORDERED: HYDROCODONE/APAP 10/325 TAB ONE (19:22)
[2019-12-11 19:38] LABS: Blood Morphology Comment NOT SEEN (NOT SEEN); Platelet Estimate ADEQ; White Blood Cell Scan OK (OK)
[2019-12-11 20:54] VITALS: TEMP 98.2
[2019-12-11 20:57] VITALS: O2SAT 100
[2019-12-11 20:59] VITALS: BP 147/98
== END 2019-12-11 19:46 | disposition home or self-care (01) ==
LOC: ER 15:32
PROC: 0U9L0ZZ Drainage of Vestibular Gland, Open Approach (ICD-10-PCS; principal; 2019-12-11)
DX: N75.1 Abscess of Bartholin's gland (principal); I10 Essential (primary) hypertension; F17.210 Nicotine dependence, cigarettes, uncomplicated
CPT/HCPCS: 36415; 85025; 96360; 96361; 99284; J7030

== ENCOUNTER 2020-05-07 09:23 | Emergency (ER) | payer SELFPAY ==
--- OUTSIDE RECORDS SUMMARY | 2020-05-07 09:27 | XMS REPORT | Continuity of Care Document ---
:1980 Author Organization [facility] t Address [address] [place] [address] Care Team Providers Name Role Phone Pcp Primary Care Physician Unavailable Jeff VELAZQUEZ Attending Clinician Keila HERNANDEZ C Attending Clinician KUNAL Attending Clinician Unavailable KUNAL Admitting Clinician Unavailable Problems Condition Condition Condition Status Onset Resolution Last Treating Co mments Source Name Details Category Date Date Treatment Clinician Date CVA CVA Disease Active [facility] - vascular vascular 00:00: Medica l accident) accident) 00 [facility] er Abnormal Abnormal Disease [facility] [place] Chest pain Chest pain Disease Active [facility] [place] HTN HTN Disease Active [facility] (hypertens (hypertens 7[facility] - ion) ion) 00:00: Medical 00 Center HLD HLD Disease Active [facility] (hyperlipi (hyperlipi 7-20 [facility] - demia) demia) 00:00: Medical 00 Center DM DM Disease Active [facility] (diabetes (diabetes [facility] - mellitus) mellitus) 00:00: Medi chayito 00 Center Morbid Morbid Disease Active [facility] obesity obesity 7[facility] - [facility] 00 [facility] Depression Depression Disease Active [facility] Center Allergies, Adverse Reactions, Alerts This patient has no known allergies or adverse reactions. Social History Social Habit Start Date Stop Date Quantity Comments Source History of tobacco 1997-09-[address] [facility] - use 00:00:00 day smoker [facility] History [facility] - Alcohol Std Drinks Medica l Center History [facility] - Alcohol Binge [facility] - [facility] History MSOH 2018-09-28 2018-09-[address] [facility] - Alcohol Frequency 00:00:00 00:00:00 [facility] Tobacco Comment 2018-09-28 2018-09-28 [facility]00:00 quite in past Medical [facility] Cigarettes smoked 2018-09-28 2018-09-[address] [facility] - current (pack per 00:00:00 00:00:00 [facility] day) - Reported Cigarette 2018-09-28 2018-09-28 [facility] - pack-years 00:00:00 00:00:00 [facility] Tobacco use and 2018-09-28 2018-09-[address] [facility] - exposure 00:00:00 00:00:00 [facility] Alcohol intake 2018-09-28 2018-09-[address] [facility] - 00:00:00 00:00:00 non-drinker of Medical Ce nter alcohol (finding) Smoking Status Start Date Stop Date Source Current every day [facility] 2018-09[facility]28 [facility] Medications Ordered Filled Start Stop Current Ordering Indication Dosage Frequency Signature Comments Components Source Medication Medication Date Date Medication? Clinician (SIG) Name Name metoprolol Yes hypertensio 100mg Take [address] (TOPROL-XL) 7-21 n mg by [facility] - 100 MG 24 17:40: mouth. Medica l hr tablet 17 Center carisoprodo Yes 350mg Take [address] [facility] (SOMA) 7-21 mg by [facility] - 350 MG 17:40: mouth 3 Medical tablet 17 (three) Center times daily as needed for Muscle spasms. Procedures This patient has no known procedures. Plan of Care Planned Activity Planned Date Details Comments Source Future Scheduled 2021-09-[address] [facility] - Test 00:00:00 (procedure) [code = Medical Center 06343595] Future Scheduled 2019-11-11 INFLUENZA VACCINE (#1) [facility] - Test 00:00:00 [code = INFLUENZA Medical Ce nter VACCINE (#1)] Future Scheduled 2018-12-[address] [facility] - Test 00:00:00 measurement Medical Center (procedure) [code = 21049019] Future Scheduled [address] [facility] - Test 00:00:00 malignant neoplasm of Medica l Center cervix (procedure) [code = 678894300] Future Scheduled 2000 DTAP/TDAP/TD VACCINES [facility] - Test 00:00:00 (1 - Tdap) [code = Medical C enter DTAP/TDAP/TD VACCINES (1 - Tdap)] Future Scheduled 1999-06-19 HEPATITIS C SCREENING [facility] - Test 00:00:00 [code = HEPATITIS C Medical Center SCREENING] Future Scheduled 1991-06-[address] DIABETIC EYE EXAM [facility] - Test 00:00:00 [code = DIABETIC EYE Medical Center EXAM] Future Scheduled 1991-06-[address] [facility] - Test 00:00:00 examination Medical Center (regime/therapy) [code = 945563446] Future Scheduled 1991-06-19 Urine screening for [facility] - Test 00:00:00 protein (procedure) Medical Center [code = 133043628] Future Scheduled 1987-06-[address] [facility] - Test 00:00:00 0-64 YRS (1 of 1 - Medical C enter PPSV23) [code = PNEUMOCOCCAL VACCINE 0-64 YRS (1 of 1 - PPSV23)] Encounters Start End Encounter Admission Attending Care Care Encounter Source Date/Time Date/Time Type Type Clinicians Facility Department ID 2020-04-01 2020-04-01 Letter HAYLEY Aguilar [id number] 00:00:00 00:00:00 (Out) [facility] [id number] [facility] [id number] 2020-04-01 2020-04-01 Telephone HAYLEY Aguilar [id number] 00:00:00 00:00:00 [facility] [id number] [facility] [id number] 2020-01-08 2020-01-08 Telephone HAYLEY Aguilar [id number] 00:00:00 00:00:00 [facility] [id number] [facility] [id number] 2019-12-22 2019-12-22 Telephone RENE Pedraza [id number] 00:00:00 00:00:00 Radha Balbuena [facility] [id number] [facility] [id number] MATERNAL [id number] & CHILD [address] [place] [address] Results Test Description Test Time Test Comments Results Result [facility] e Comments MR, MRA, BRAIN, 2018-09-29 Reason for FINAL REPORT PATIENT WITHOUT CONTRAST 09:22:00 exam:->StrokeW ID: [id number] MRA hat is the Head CLINICAL patient's HISTORY: Stroke sedation TECHNIQUE: MRA of the requirement?-> head utilizing 3-D No Sedation evsw-gq-bunmpl technique, with 3-D reconstructions. COMPARISON: None IMPRESSION: The study is motion, but there is no evidence for a [place] proximal branch vessel occlusion. Aneurysms cannot be excluded. If clinically warranted, repeat imaging should be performed. MRA Neck CLINICAL HISTORY: Stroke TECHNIQUE: MRA of the neck utilizing 2-D and 3-D itmi-vq-isyauw technique, with 3-D reconstructions. COMPARISON: None FINDINGS: The carotid arteries in the neck are patent including their bifurcations. There is antegrade flow in the vertebral arteries in the neck. IMPRESSION: No evidence of hemodynamically significant stenosis in the cervical carotid or vertebral arteries by NASCET criteria. Signed: Rocco Ragsdale MDReport Verified Date/Time: 09/29/2018 09:22:59 Reading Location: [facility] C013V Neuro Reading Room , MRA, NECK, 2018-09-29 FINAL REPORT PATIENT WITHOUT IV 09:22:00 ID: [id number] MRA CONTRAST Head CLINICAL HISTORY: Stroke TECHNIQUE: MRA of the head utilizing 3-D xqdc-rz-ubhwvh technique, with 3-D reconstructions. COMPARISON: None IMPRESSION: The study is motion, but there is no evidence for a [place] proximal branch vessel occlusion. Aneurysms cannot be excluded. If clinically warranted, repeat imaging should be performed. MRA Neck CLINICAL HISTORY: Stroke TECHNIQUE: MRA of the neck utilizing 2-D and 3-D defz-qa-kuwzzb technique, with 3-D reconstructions. COMPARISON: None FINDINGS: The carotid arteries in the neck are patent including their bifurcations. There is antegrade flow in the vertebral arteries in the neck. IMPRESSION: No evidence of hemodynamically significant stenosis in the cervical carotid or vertebral arteries by NASCET criteria. Signed: Rocco Ragsdale MDRsamort Verified Date/Time: 09/29/2018 09:22:59 Reading Location: [address] Neuro Reading Room , BRAIN, WITHOUT 2018-09-29 FINAL REPORT PATIENT CONTRAST 09:05:00 ID: [id number] MRI Brain without contrast Clinical History: Stroke Technique: MRI of the brain utilizing axial T2, FLAIR, GRE, DWI; sagittal and coronal T1-weighted images. Comparisons: None Findings: There is no evidence of acute or chronic infarct or hemorrhage. There are a few scattered nonspecific foci of FLAIR signal abnormality in the subcortical and periventricular white matter. The ventricles and sulci are appropriate for the patient's age without hydrocephalus, midline shift, or apparent mass effect. There are no extra-axial fluid collections. The cerebellar tonsils are borderline low lying in the foramen magnum but maintain a normal rounded configuration. The major intracranial flow-voids appear patent. IMPRESSION: No evidence of infarct, hemorrhage, or hydrocephalus. Signed: Rocco Ragsdale Verified Date/Time: 09/29/2018 09:05:00 Reading Location: [address] Neuro Reading Room C METABOLIC PANEL 2018-09-29 07:07:00 Test Item Value Reference Range Interpretation Comme nts SODIUM (BEAKER) (test code 137 meq/L 136-145 = 381) POTASSIUM (BEAKER) (test 3.6 meq/L 3.5-5.1 code = 379) CHLORIDE (BEAKER) (test 106 meq/L 98-107 code = 382) CO2 (BEAKER) (test code = 23 meq/L 22-29 355) BLOOD UREA NITROGEN 4 mg/dL 7-21 L (BEAKER) (test code = 354) CREATININE (BEAKER) (test 0.66 mg/dL 0.57-1.25 code = 358) GLUCOSE RANDOM (BEAKER) 228 mg/dL 70-105 H (test code = 652) CALCIUM (BEAKER) (test 8.8 mg/dL 8.4-10.2 code = 697) EGFR (BEAKER) (test code = 122 mL/min/1.73 sq m ESTIMATED GFR IS NOT 1092) ACCURATE CRE ATININE CLEARANCE IN [place] EDICTING GLOMERULAR FILT RATION RATE. ESTIMATED GFR IS NOT APPLICABLE FOR DIALYSIS PATIENTS. LIPID [id number] 07:07:00 Test Item Value Reference Range Interpretation Comments TRIGLYCERIDES (BEAKER) (test code = 476 mg/dL 540) CHOLESTEROL (BEAKER) (test code = 239 mg/dL 631) HDL CHOLESTEROL (BEAKER) (test code 32 mg/dL = 976) Calculated LDL not valid if triglyceride >400 mg/dLTriglyceride Reference Range: Low Risk <150 Borderline 150-199 High Risk 200-499 Very High Risk >=500Cholesterol Reference Range: Low Risk <200 Borderline 200-239 High Risk >240HDL Cholesterol Reference Range: Low Risk >=60 High Risk <40LDL Cholesterol ReferenceRange: Optimal <100 Near Optimal 100-129 Borderline 130-159 High 160-189 Very High >=190CBC W/PLT COUNT & AUTO [id number] 05:34:00 Test Item Value Reference Range Interpretation Comments WHITE BLOOD CELL COUNT (BEAKER) 5.7 K/ L 3.5-10.5 (test code = 775) RED BLOOD CELL COUNT (BEAKER) 4.47 M/ L 3.93-5.22 (test code = 761) HEMOGLOBIN (BEAKER) (test code = 13.2 GM/DL 11.2-15.7 410) HEMATOCRIT (BEAKER) (test code = 41.2 % 34.1-44.9 411) MEAN CORPUSCULAR VOLUME (BEAKER) 92.2 fL 79.4-94.8 (test code = 753) MEAN CORPUSCULAR HEMOGLOBIN 29.5 pg 25.6-32.2 (BEAKER) (test code = 751) MEAN CORPUSCULAR HEMOGLOBIN CONC 32.0 GM/DL 32.2-35.5 L (BEAKER) (test code = 752) RED CELL DISTRIBUTION WIDTH 13.5 % 11.7-14.4 (BEAKER) (test code = 412) PLATELET COUNT (BEAKER) (test 160 K/CU MM 150-450 code = 756) MEAN PLATELET VOLUME (BEAKER) 11.8 fL 9.4-12.3 (test code = 754) NUCLEATED RED BLOOD CELLS 0 /100 WBC 0-0 (BEAKER) (test code = 413) NEUTROPHILS RELATIVE PERCENT 33 % (BEAKER) (test code = 429) LYMPHOCYTES RELATIVE PERCENT 51 % (BEAKER) (test code = 430) MONOCYTES RELATIVE PERCENT 9 % (BEAKER) (test code = 431) EOSINOPHILS RELATIVE PERCENT 6 % (BEAKER) (test code = 432) BASOPHILS RELATIVE PERCENT 1 % (BEAKER) (test code = 437) NEUTROPHILS ABSOLUTE COUNT 1.91 K/ L 1.56-6.13 (BEAKER) (test code = 670) LYMPHOCYTES ABSOLUTE COUNT 2.91 K/ L 1.18-3.74 (BEAKER) (test code = 414) MONOCYTES ABSOLUTE COUNT (BEAKER) 0.51 K/ L 0.24-0.36 H (test code = 415) EOSINOPHILS ABSOLUTE COUNT 0.33 K/ L 0.04-0.36 (BEAKER) (test code = 416) BASOPHILS ABSOLUTE COUNT (BEAKER) 0.05 K/ L 0.01-0.08 (test code = 417) IMMATURE GRANULOCYTES-RELATIVE 0 % 0-1 PERCENT (BEAKER) (test code = 2801) TROPONIN [id number] 18:14:00 Test Item Value Reference Range Interpretation Comments TROPONIN I (BEAKER) (test code = 0.01 ng/mL 0.00-0.03 397) Troponin I (TnI) levels must be interpreted in the context of the presenting symptoms and the clinical findings. Elevated TnI levels indicate myocardial damage, but are not specific for ischemic heart disease. Elevated TnI levels are seen in patients with other cardiac conditions (including myocarditis and congestive heart failure), and slight TnI elevations occur in patients with other conditions, including sepsis, renal failure, acidosis, acute neurological disease, and persistent tachyarrhythmia.POCT-GLUCOSE [id number] 17:19:00 Test Item Value Reference Range Interpretation Comments POC-GLUCOSE METER 193 mg/dL 70-110 H TESTED AT [facility] 6720 (BEAKER) (test code = [place] 1538) [address] TSH/FREE T4 IF [id number] 15:44:00 Test Item Value Reference Range Interpretation Comments THYROID STIMULATING HORMONE 0.69 uIU/mL 0.35-4.94 (BEAKER) (test code = 772) VITAMIN B12 AND [id number] 15:44:00 Test Item Value Reference Range Interpretation Comments VITAMIN B12 (BEAKER) (test code = 635 pg/mL 213-816 774) FOLATE (BEAKER) (test code = 362) 11.7 ng/mL >=7.0 HEMOGLOBIN [id number] 15:37:00 Test Item Value Reference Range Interpretation Comments HEMOGLOBIN A1C (BEAKER) (test code = 11.2 % 4.3-6.1 H 368) SCREEN, [id number] 15:16:00 Test Item Value Reference Range Interpretation Comments TEST URINE (BEAKER) (test Negative code = 583) TROPONIN [id number] 15:14:00 Test Item Value Reference Range Interpretation Comments TROPONIN I (BEAKER) (test code = 397) < ng/mL 0.00-0.03 Troponin I (TnI) levels must be interpreted in the context of the presenting symptoms and the clinical findings. Elevated TnI levels indicate myocardial damage, but are not specific for ischemic heart disease. Elevated TnI levels are seen in patients with other cardiac conditions (including myocarditis and congestive heart failure), and slight TnI elevations occur in patients with other conditions, including sepsis, renal failure, acidosis, acute neurological disease, and persistent tachyarrhythmia.HEPATIC FUNCTION [id number] 15:08:00 Test Item Value Reference Range Interpretation Comments TOTAL PROTEIN (BEAKER) (test code = 6.7 gm/dL 6.0-8.3 770) ALBUMIN (BEAKER) (test code = 1145) 3.7 g/dL 3.5-5.0 BILIRUBIN TOTAL (BEAKER) (test code 0.6 mg/dL 0.2-1.2 = 377) BILIRUBIN DIRECT (AKER) (test 0.2 mg/dL 0.1-0.5 code = 706) ALKALINE PHOSPHATASE (BEAKER) (test 68 U/L 40-150 code = 346) AST (SGOT) (BEAKER) (test code = 11 U/L 5-34 353) ALT (SGPT) (AKER) (test code = 13 U/L 6-55 347) [id number] 15:01:00 Test Item Value Reference Range Interpretation Comments D-DIMER QUANTITATIVE ([employer]) < MG/L FEU <0.50 (test code = 671) Intended Use: The D-Dimer Assay can be used to aid in the diagnosis of Deep Vein Thrombosis (DVT) and Pulmonary Embolism Disease (PED).In patients with low pre- test probability, various studies concerning STA Liatest D-dimer test have reported that with a cutoff value of 0.50 MG/L FEU, the Negative Predictive Value (NPV) regarding the exclusion of thrombosis is within 95-100% range.POCT- GLUCOSE [id number] 11:40:00 Test Item Value Reference Range Interpretation Comments POC-GLUCOSE METER 226 mg/dL 70-110 H TESTED AT [facility] 6720 ([facility]) (test code = [place]NAN[place] 1538) [id number]
[2020-05-07] MEDS ORDERED: CYCLOBENZAPRINE 10 MG TAB ONE (10:16)
[2020-05-07] MEDS ORDERED: KETOROLAC 30 MG/ML INJ ONE (10:16)
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
[2020-05-07] MEDS ORDERED: HYDROCODONE/APAP 7.5/325 MG TAB ONE (11:46)
[2020-05-07 12:07] VITALS: TEMP 97.4; O2SAT 98
[2020-05-07 12:10] VITALS: BP 126/66
== END 2020-05-07 11:39 | disposition home or self-care (01) ==
LOC: ER 09:23
DX: M54.5 Low back pain (principal); I10 Essential (primary) hypertension
CPT/HCPCS: 96372; 99283

== ENCOUNTER 2020-05-28 09:12 | Emergency (ER) | payer SELFPAY ==
--- OUTSIDE RECORDS SUMMARY | 2020-05-28 09:15 | XMS REPORT | Continuity of Care Document ---
:[address] [facility] t Address [address] [place] [address] Care Team Providers Name Role Phone Pcp MD Primary Care Physician Unavailable Res-Colpo/Leep Attending Clinician Unavailable Doctor Unassigned, Name Attending Clinician Unavailable KUNAL Attending Clinician Unavailable KUNAL Admitting Clinician [...] [facility] [place] Chest pain Chest pain Disease Active [facility] [place] HTN HTN Disease Active [facility] (hypertens (hypertens 7-20 [facility] - ion) ion) 00:00: Medical [place] HLD HLD Disease Active [facility] (hyperlipi (hyperlipi 7-20 [facility] - demia) demia) 00:00: Medical 00 Center DM DM Disease Active [facility] (diabetes (diabetes 7-[facility] - mellitus) mellitus) 00:00: [facility] chayito 00 Center Morbid Morbid Disease Active [facility] obesity obesity 7-20 [facility] Depression Depression Disease Active [facility] 00:[facility]: [facility] 00 Center Allergies, Adverse Reactions, Alerts This patient has no known allergies or adverse reactions. Social History Social Habit Start Date Stop Date Quantity Comments Source History of tobacco 1997-09-[address] [facility] - use 00:00:00 day smoker [facility] Center History [facility] Alcohol Std Drinks [facility]ica [facility] Center History [facility] - Alcohol Binge [facility] Sex Assigned At [facility] kes - [facility] Center History SDOH 2018-09-28 2018-09-[address] [facility] - Alcohol Frequency 00:00:00 00:00:00 [facility] Tobacco Comment 2018-09-28 2018-09-28 [facility]00:00 quite in past [facility] Cigarettes smoked 2018-09-28 2018-09-[address] [facility] kes - current (pack per 00:00:00 00:00:00 [facility] Center day) - Reported Cigarette 2018-09-28 2018-09-[address] [facility] - pack-years 00:00:00 00:00:00 [facility] Tobacco use and 2018-09-28 2018-09-28 Never used [facility] kes - exposure 00:00:00 00:00:00 [facility] Alcohol intake 2018-09-28 2018-09-28 Current [facility] - 00:00:00 00:00:00 non-drinker of Medical Ce nter alcohol (finding) Smoking Status Start Date Stop Date Source Current every day smoker 2018-09-28 00:00:00 [facility] Medications Ordered Filled Start Stop Current Ordering [...] Planned Date Details Comments Source Future Scheduled 2024-08-04 DTAP/TDAP/TD VACCINES [facility] - Test 00:00:00 (2 - Td) [code = Medical [facility] DTAP/TDAP/TD VACCINES (2 - Td)] Future Scheduled 2021-09-[address] [facility] - Test 00:00:00 (procedure) [code = Medical Center 39957012] Future Scheduled 2019-11-11 INFLUENZA VACCINE (#1) [facility] Test 00:00:00 [code = INFLUENZA Medical Ce nter VACCINE (#1)] Future Scheduled 2018-12-[address] [facility] - Test 00:00:00 measurement Medical Center (procedure) [code = 90901363] Future Scheduled [address] [facility] - Test 00:00:00 malignant neoplasm of Medica l Center cervix (procedure) [code = 572018269] Future Scheduled 1999-06-19 HEPATITIS C SCREENING [facility] Test 00:00:00 [code = HEPATITIS C Medical Center SCREENING] Future Scheduled 1991-06-[address] DIABETIC EYE EXAM [facility] - Test 00:00:00 [code = DIABETIC EYE Medical Center EXAM] Future Scheduled 1991-06-[address] [facility] - Test 00:00:00 examination Medical Center (regime/therapy) [code = 701212187] Future Scheduled 1991-06-19 Urine screening for [facility] - Test 00:00:00 protein (procedure) Medical Center [code = 142526941] Future Scheduled 1987-06-[address] [facility] - Test 00:00:00 0-64 YRS (1 of 1 - Medical C enter PPSV23) [code = PNEUMOCOCCAL VACCINE 0-64 YRS (1 of 1 - PPSV23)] Encounters Start End Encounter Admission Attending Care Care Encounter Source Date/Time Date/Time Type Type Clinicians Facility Department ID 2020-05-27 2020-05-27 Office Res-Colpo/L [facility] [id number] 08:47:55 09:27:03 Visit Audra gu [id number] [facility] [id number] 2020-05-27 2020-05-27 Orders Doctor HELEN [id number] 00:00:00 00:00:00 Only UnassignedELLEN [id number] [place] [facility] [id number] Results Test Description Test Time Test Comments Results Result [facility] Comments MR, MRA, BRAIN, 2018-09-29 Reason for FINAL REPORT PATIENT WITHOUT CONTRAST 09:22:00 exam:->StrokeW ID: [id number] MRA hat is the Head CLINICAL patient's HISTORY: Stroke sedation TECHNIQUE: MRA of the requirement?-> head utilizing 3-D No Sedation isaj-zo-xkwaqd technique, with 3-D reconstructions. COMPARISON: None IMPRESSION: The study is motion, but there is no evidence for a [place] proximal branch vessel occlusion. Aneurysms cannot be excluded. If clinically warranted, repeat imaging should be performed. MRA Neck CLINICAL HISTORY: Stroke TECHNIQUE: MRA of the neck utilizing 2-D and 3-D wuvg-vk-tjbput technique, with 3-D reconstructions. COMPARISON: None FINDINGS: The carotid arteries in the neck are patent including their bifurcations. There is antegrade flow in the vertebral arteries in the neck. IMPRESSION: No evidence of hemodynamically significant stenosis in the cervical carotid or vertebral arteries by NASCET criteria. Signed: Rocco Ragsdale Verified Date/Time: 09/29/2018 09:22:59 Reading Location: [address] Neuro Reading Room , MRA, NECK, 2018-09-29 FINAL REPORT PATIENT WITHOUT IV 09:22:00 ID: [id number] MRA CONTRAST Head CLINICAL HISTORY: Stroke TECHNIQUE: MRA of the head utilizing 3-D ahsl-ee-oylnvm technique, with 3-D reconstructions. COMPARISON: None IMPRESSION: The study is motion, but there is no evidence for a [place] proximal branch vessel occlusion. Aneurysms cannot be excluded. If clinically warranted, repeat imaging should be performed. MRA Neck CLINICAL HISTORY: Stroke TECHNIQUE: MRA of the neck utilizing 2-D and 3-D tuyg-fn-lubumg technique, with 3-D reconstructions. COMPARISON: None FINDINGS: The carotid arteries in the neck are patent including their bifurcations. There is antegrade flow in the vertebral arteries in the neck. IMPRESSION: No evidence of hemodynamically significant stenosis in the cervical carotid or vertebral arteries by NASCET criteria. Signed: Rocco Ragsdale Verified Date/Time: 09/29/2018 09:22:59 Reading Location: [address] Neuro Reading Room , BRAIN, WITHOUT 2018-09-29 FINAL REPORT PATIENT CONTRAST 09:05:00 ID: [id number] MRI Brain without contrast Clinical History: Stroke [...] infarct, hemorrhage, or hydrocephalus. Signed: Rocco Ragsdale MDReport Verified Date/Time: 09/29/2018 09:05:00 Reading Location: [address] Neuro Reading Room C METABOLIC PANEL [...] NOT 1092) ACCURATE CRE ATININE CLEARANCE IN [place] EDICTING GLOMERULAR FILT RATION RATE. ESTIMATED GFR IS NOT APPLICABLE FOR DIALYSIS PATIENTS. LIPID [id number] 07:07:00 Test Item Value Reference Range Interpretation [...] Very High >=190CBC W/PLT COUNT & AUTO [id number] 05:34:00 Test Item Value Reference Range Interpretation [...] PERCENT (BEAKER) (test code = 2801) TROPONIN [id number] 18:14:00 Test Item Value Reference Range Interpretation Comments TROPONIN I (AKER) (test code = 0.01 ng/mL 0.00-0.03 397) [...] acidosis, acute neurological disease, and persistent tachyarrhythmia.POCT-GLUCOSE [id number] 17:19:00 Test Item Value Reference Range Interpretation Comments POC-GLUCOSE METER 193 mg/dL 70-110 H TESTED AT [facility] [address] ([facility]) (test code = NADEEN HERNANDEZ 1538) [address] TSH/FREE T4 IF [id number] 15:44:00 Test Item Value Reference Range Interpretation Comments THYROID STIMULATING HORMONE 0.69 uIU/mL 0.35-4.94 ([facility]) (test code = 772) VITAMIN B12 AND [id number] 15:44:00 Test Item Value Reference Range Interpretation Comments VITAMIN B12 (BEAKER) (test code = 635 pg/mL 213-816 774) FOLATE (BEAKER) (test code = 362) 11.7 ng/mL >=7.0 HEMOGLOBIN [id number] 15:37:00 Test Item Value Reference Range Interpretation Comments HEMOGLOBIN A1C (BEAKER) (test code = 11.2 % 4.3-6.1 H 368) SCREEN, [id number] 15:16:00 Test Item Value Reference Range Interpretation Comments TEST URINE (BEAKER) (test Negative code = 583) TROPONIN [id number] 15:14:00 Test Item Value Reference Range Interpretation [...] acute neurological disease, and persistent tachyarrhythmia.HEPATIC FUNCTION [id number] 15:08:00 Test Item Value Reference Range Interpretation Comments TOTAL PROTEIN (BEAKER) (test code = 6.7 gm/dL 6.0-8.3 770) ALBUMIN (BEAKER) (test code = 1145) 3.7 g/dL 3.5-5.0 BILIRUBIN TOTAL (BEAKER) (test code 0.6 mg/dL 0.2-1.2 = 377) BILIRUBIN DIRECT (BEAKER) (test 0.2 mg/dL 0.1-0.5 code = 706) ALKALINE PHOSPHATASE (BEAKER) (test 68 U/L 40-150 code = 346) AST (SGOT) (BEAKER) (test code = 11 U/L 5-34 353) ALT (SGPT) (BEAKER) (test code = 13 U/L 6-55 347) [id number] 15:01:00 Test Item Value Reference Range Interpretation Comments D-DIMER QUANTITATIVE (BEAKER) < MG/L FEU <0.50 (test code = [...] of thrombosis is within 95-100% range.POCT- GLUCOSE [id number] 11:40:00 Test Item Value Reference Range Interpretation Comments POC-GLUCOSE METER 226 mg/dL 70-110 H TESTED AT [facility] [address] ([place]) (test code = NADEEN HERNANDEZ 1538) [id number]
[2020-05-28] MEDS ORDERED: LIDOCAINE 1% W/EPI 1:100,000 MDV 20 ML VIAL ONE (10:28)
[2020-05-28] MEDS ORDERED: LIDOCAINE 1% MPF 30 ML VIAL ONE (10:45)
--- NOTE | 2020-05-28 10:53 | ER ---
Nurse's Notes [facility] Name: Soco Mcgrath Age: 39 yrs Sex: Female : 1980 Arrival Date: 05/28/2020 Time: 09:13 Bed 2 Private MD: Diagnosis: Abscess of Bartholin's gland Presentation: 05/28 09:31 Chief complaint: Patient states: has a cyst on her right vaginal area, had it lanced iw before, this time it is really hard. Coronavirus screen: At this time, the client does not indicate any symptoms associated with coronavirus-19. Ebola Screen: Patient negative for fever greater than or equal to 101.5 degrees Fahrenheit, and additional compatible Ebola Virus Disease symptoms Patient denies exposure to infectious person. Patient denies travel to an Ebola-affected area in the 21 days before illness onset. No symptoms or risks identified at this time. Initial Sepsis Screen: Does the patient meet any 2 criteria? No. Patient's initial sepsis screen is negative. Does the patient have a suspected source of infection? No. Patient's initial sepsis screen is negative. Risk Assessment: Do you want to hurt yourself or someone else? Patient reports no desire to harm self or others. Onset of symptoms was May 14, 2020. 09:31 Method Of Arrival: Ambulatory iw 09:31 Acuity: JESSICA 3 iw [employer]: 10:12 LMP 05/28/2020 tw2 Historical: - Allergies: 09:33 No Known Allergies; iw - Home Meds: 09:33 metformin Oral 2 times per day [Active]; lisinopril Oral [Active]; iw 10:17 BP medication cannot recall the name [Active]; DM medication cannot recall the name tw2 [Active]; - PMHx: 09:33 Diabetes - IDDM; Hypertension; Diabetes - NIDDM; iw 10:17 uterine cancer; tw2 - PSHx: 09:33 ; iw - Immunization history:: Adult Immunizations up to date. - Social history:: Smoking status: Patient/guardian denies using tobacco, Stopped _ months ago 2. Screenin:43 Abuse screen: Denies threats or abuse. Nutritional screening: No deficits noted. tw2 Tuberculosis screening: No symptoms or risk factors identified. Fall Risk None identified. Assessment: 10:00 General: Appears in no apparent distress. obese, Behavior is calm, cooperative, tw2 appropriate for age. Pain: Complains of pain in right labia. Neuro: Level of Consciousness is awake, alert, obeys commands, Oriented to person, place, time, situation. Cardiovascular: Patient's skin is warm and dry. Respiratory: Airway is patent Respiratory effort is even, unlabored, Respiratory pattern is regular, symmetrical. GI: No signs and/or symptoms were reported involving the gastrointestinal system. : Reports pain in right labia, reports every month during her cycle she will get them on alternating sides and normally cares for them with espon soaks, this time it has not helped. Musculoskeletal: Range of motion: intact in all extremities. Vital Signs: 09:31 BP 146 / 100; Pulse 125; Resp 18 S; Temp 97.0; Pulse Ox 100% ; Weight 117.48 kg; Height iw 5 ft. 4 in. (162.56 cm); Pain 8; 09:31 Body Mass Index 44.46 (117.48 kg, 162.56 cm) iw ED Course: 09:13 Patient arrived in ED. am2 09:33 Triage completed. iw 09:34 Arm band placed on. iw 09:37 Kashif Chau PA is PHCP. jr8 09:37 Harish Bryant MD is Attending Physician. jr8 09:42 Angie Yanes, CATINA is Primary Nurse. tw2 09:44 Placed in gown. Bed in low position. Call light in reach. Pulse ox on. NIBP on. Warm tw2 blanket given. 10:00 commercial real estate underwriter for visualization of cyst on right labia, pt tolerated well. tw2 10:41 Assist provider with I \T\ D: of an abscess on right Bartholin's gland Set up I\T\D tray. tw 2 Performed by Kashif ANN pt tolerated well, lopez catheter applied. Patient did not have IV access during this emergency room visit. Administered Medications: 10:14 Not Given (Physician Discretion): Lidocaine-Epinephrine -1%: (1:100,000) 20 ml 20 ml jr8 Infiltration once; to bedside 10:38 Drug: Lidocaine (1 %) 1 vials {Note: by SETH Ladd.} Volume: 20 ml; Route: Infiltration; tw2 Outcome: 10:51 Discharge ordered by . aliza 11:09 Patient left the ED. car 11:09 Discharged to home ambulatory. tw2 11:09 Condition: stable 11:09 Discharge instructions given to patient, Instructed on discharge instructions, follow up and referral plans. medication usage, wound care, Demonstrated understanding of instructions, follow-up care, medications, wound care, Prescriptions given X 2. Signatures: Jolene Barron RN RN Kashif Chau PA PA jr8 Angie Yanes RN RN 2 Leslie Olvera Elizabeth eb
--- NOTE | 2020-05-28 10:53 | EDPHYS ---
Physician Documentation [facility] Name: Soco Mcgrath Age: 39 yrs Sex: Female : 1980 Arrival Date: 05/28/2020 Time: 09:13 Bed 2 Private MD: ED Physician Harish Bryant HPI: 05/28 10:03 This 39 yrs old Black Female presents to ER via Ambulatory with complaints of Vaginal jr8 Pain, Cyst. 10:03 Onset: The symptoms/episode began/occurred gradually. Modifying factors: The symptoms jr8 are alleviated by sitz baths. Associated signs and symptoms: Pertinent positives: vaginal bleeding, Pain. Patient reports for Bartholin cyst. She reports getting them every month around her period. She normally care for them at home with baths and epsom salt but this one is hard and unable to break at home. . 10:21 The patient has experienced similar episodes in the past, multiple times, but today's jr8 symptoms are worse, more painful. [employer]LLIGENCE: 10:12 LMP 05/28/2020 tw2 Historical: - Allergies: 09:33 No Known Allergies; iw - Home Meds: 09:33 metformin Oral 2 times per day [Active]; lisinopril Oral [Active]; iw 10:17 BP medication cannot recall the name [Active]; DM medication cannot recall the name tw2 [Active]; - PMHx: 09:33 Diabetes - IDDM; Hypertension; Diabetes - NIDDM; iw 10:17 uterine cancer; tw2 - PSHx: 09:33 ; iw - Immunization history:: Adult Immunizations up to date. - Social history:: Smoking status: Patient/guardian denies using tobacco, Stopped _ months ago 2. ROS: 10:18 Cardiovascular: Negative for chest pain, palpitations, and edema, Respiratory: Negative jr8 for shortness of breath, cough, wheezing, and pleuritic chest pain, Abdomen/GI: Negative for abdominal pain, nausea, vomiting, diarrhea, and constipation, Back: Negative for injury and pain, MS/Extremity: Negative for injury and deformity, Neuro: Negative for headache, weakness, numbness, tingling, and seizure. 10:18 : Positive for vaginal bleeding, of the R labial wall, Bartholin's cyst. Exam: 10:19 Constitutional: This is a well developed, well nourished patient who is awake, alert, jr8 and in no acute distress. Chest/axilla: Normal chest wall appearance and motion. Nontender with no deformity. No lesions are appreciated. Cardiovascular: Regular rate and rhythm with a normal S1 and S2. No gallops, murmurs, or rubs. Normal PMI, no JVD. No pulse deficits. Respiratory: Lungs have equal breath sounds bilaterally, clear to auscultation and percussion. No rales, rhonchi or wheezes noted. No increased work of breathing, no retractions or nasal flaring. Abdomen/GI: Soft, non-tender, with normal bowel sounds. No distension or tympany. No guarding or rebound. No evidence of tenderness throughout. Back: No spinal tenderness. No costovertebral tenderness. Full range of motion. Skin: Warm, dry with normal turgor. Normal color with no rashes, no lesions, and no evidence of cellulitis. MS/ Extremity: Pulses equal, no cyanosis. Neurovascular intact. Full, normal range of motion. Neuro: Awake and alert, GCS 15, oriented to person, place, time, and situation. Cranial nerves II-XII grossly intact. Motor strength 5/5 in all extremities. Sensory grossly intact. Cerebellar exam normal. Normal gait. 10:19 : Pelvic Exam: External exam: Bartholin's cyst present. Vital Signs: 09:31 BP 146 / 100; Pulse 125; Resp 18 S; Temp 97.0; Pulse Ox 100% ; Weight 117.48 kg; Height iw 5 ft. 4 in. (162.56 cm); Pain 8/10; 09:31 Body Mass Index 44.46 (117.48 kg, 162.56 cm) iw Procedures: 10:46 I \T\ D: Incision and drainage was performed for an abscess of the right Bartholin's jr8 gland. Prepped with Betadine, Anesthetized with 10 ml's 1% Lidocaine. Incised with #11 blade. Drained large amount purulent fluid. serosanguinous fluid. Packed with Wards catheter. Dressing: None the patient tolerated the procedure well. MDM: 09:37 Patient medically screened. 8 10:20 Data reviewed: vital signs, nurses notes. Data interpreted: front desk monitor: rate is jr8 125 beats/min, rhythm is regular, Pulse oximetry: on room air is 100 %. Interpretation: normal. 10:49 Counseling: I had a detailed discussion with the patient and/or guardian regarding: the jr8 historical points, exam findings, and any diagnostic results supporting the discharge/admit diagnosis, the need for outpatient follow up, an OB/Gyne specialist, to return to the emergency department if symptoms worsen or persist or if there are any questions or concerns that arise at home. 05/28 10:12 Order name: I\T\D Setup; Complete Time: 10:12 tw2 Administered Medications: 10:14 Not Given (Physician Discretion): Lidocaine-Epinephrine -1%: (1:100,000) 20 ml 20 ml jr8 Infiltration once; to bedside 10:38 Drug: Lidocaine (1 %) 1 vials {Note: by SETH Ladd.} Volume: 20 ml; Route: Infiltration; tw2 Disposition: 19:20 Co-signature as Attending Physician, Harish Bryant MD I agree with the assessment and kdr plan of care. Disposition: 05/28/20 10:51 Discharged to Home. Impression: Abscess of Bartholin's gland. - Condition is Stable. - Discharge Instructions: Bartholin Cyst or Abscess, Incision and Drainage. - Prescriptions for Clindamycin HCl 300 mg Oral Capsule - take 1 capsule by ORAL route every 6 hours for 10 days; 40 capsule. Diflucan 150 mg Oral Tablet - take 1 tablet by ORAL route one time for 1 day; 1 tablet. - Medication Reconciliation Form, Thank You Letter, Antibiotic Education, Prescription Opioid Use, Work release form form. - Follow up: Private Physician; When: 2 - 3 days; Reason: Recheck today's complaints, Continuance of care, Re-evaluation by your physician. - Problem is new. - Symptoms have improved. Signatures: Harish Bryant MD MD [facility] Jolene Barron RN RN Kashif Chau PA PA jr8 Angie Yanes RN RN tw2 Tavia Spence Corrections: (The following items were deleted from the chart) 11:09 10:51 05/28/2020 10:51 Discharged to Home. Impression: Abscess of Bartholin's gland. eb Condition is Stable. Forms are Medication Reconciliation Form, Thank You Letter, Antibiotic Education, Prescription Opioid Use. Follow up: Private Physician; When: 2 - 3 days; Reason: Recheck today's complaints, Continuance of care, Re-evaluation by your physician. Problem is new. Symptoms have improved. jr8
[2020-05-28 11:15] VITALS: BP 146/100; TEMP 97; O2SAT 100
== END 2020-05-28 11:09 | disposition home or self-care (01) ==
LOC: ER 09:12
PROC: 0U9L0ZZ Drainage of Vestibular Gland, Open Approach (ICD-10-PCS; principal; 2020-05-28)
DX: N75.1 Abscess of Bartholin's gland (principal); I10 Essential (primary) hypertension; E11.9 Type 2 diabetes mellitus without complications; Z85.42 Personal history of malignant neoplasm of other parts of uterus
CPT/HCPCS: 99284

== ENCOUNTER 2021-06-06 16:39 | Emergency (ER) | payer SELFPAY ==
--- OUTSIDE RECORDS SUMMARY | 2021-06-06 16:42 | XMS REPORT | Continuity of Care Document ---
:[address] [facility] t Address [address] [place] [address] Care Team Providers Name Role Phone Pcp, Does Not Have A Primary Care Physician Esha TAYLOR Attending Clinician Unavailable Doctor Unassigned, Name Attending Clinician Unavailable Jeff VELAZQUEZ Attending Clinician Adarsh MEJÍA Attending Clinician Res-Colpo/Leep Attending Clinician Unavailable Miriam MEJÍA L Attending Clinician Varghese PINEDA Attending Clinician Unavailable KUNAL Attending Clinician Unavailable KUNAL Admitting Clinician Unavailable Payers Payer Name Policy Type Policy Number Effective Date Expiration Date S ource Problems Condition Condition Condition Status Onset Resolution Last Treating Co mments Source Name Details Category Date Date Treatment Clinician Date 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 Managed by PCP Controlled Controlled Disease Active 2019-03 Overview : Univers type 2 type 2 0-05 Formattin ity of diabetes diabetes 00:00: g of this Sanjay as mellitus mellitus 00 note Medica l without without might be Branch complicati complicati different on, on, from the without without original. long-term long-term Managed current current by PCP use of use of insulin insulin Depression Depression Disease Active U nivers 7-20 ity of 00:00: [facility] Branch HLD HLD Disease Active Univers (hyperlipi (hyperlipi 7-20 it y of demia) demia) 00:00: [facility] Branch Cervical Cervical Disease Active Unive rs high risk high risk 5-30 ity of human human 00:00: [place] papillomav papillomav 00 Me dical irus (HPV) irus (HPV) Br anch DNA test DNA test positive positive Morbid Morbid Disease Active Univers obesity obesity 5-26 ity of 00:00: [facility] Tobacco Tobacco Disease Active Univers use use 5-26 ity of disorder disorder 00:00: [place] [facility] Allergies, Adverse Reactions, Alerts Allergy Allergy Status Severity Reaction(s) Onset Inactive Treating Comm ents Source Name Type Date Date Clinician NO KNOWN Drug Active Univers ALLERGIE Class ity of S [facility] Social History Social Habit Start Date Stop Date Quantity Comments Source History of Cigarette Smoker Universi ty of tobacco use [facility] Exposure to Not sure University of SARS-CoV-2 [facility] (event) [place] Alcohol intake 2021-04-12 2021-04-12 Current drinker Unive rsity of 00:00:00 00:00:00 of alcohol [facility] (finding) [place] Sex Ass[birth year] At [birth year] Universit y of 00:00:00 00:00:00 [facility] Smoking Status Start Date Stop Date Source Current every day smoker 2020-06-16 00:00:00 Uni versity of [facility] Medications Ordered Filled Start Stop Current Ordering Indication Dosage Frequency Signature Comments Components Source Medication Medication Date Date Medication? Clinician (SIG) Name Name metformin 2020-03 Yes 500mg Take 500 Uni vers HCl 0-08 mg by ity of (METFORMIN 08:08: mouth. [place] ORAL) 03 [facility] Branch metformin 2020-03 Yes 500mg Take 500 Uni vers HCl 0-08 mg by ity of (METFORMIN 08:08: mouth. [place] ORAL) Medical Branch metformin 2020-03 Yes 500mg Take 500 Uni vers HCl 0-08 mg by ity of (METFORMIN 08:08: mouth. [place] ORAL) Medical Branch metformin 2020-03 Yes 500mg Take 500 Uni vers HCl 0-08 mg by ity of (METFORMIN 08:08: mouth. [place] ORAL) Medical Branch amlodipine 2020-03 Yes 20mg Take 20 mg U nivers besylate 0-08 by mouth. ity of (AMLODIPINE 08:08: [place] ORAL) Medical Branch amlodipine 2020-03 Yes 20mg Take 20 mg U nivers besylate 0-08 by mouth. ity of (AMLODIPINE 08:08: [place] ORAL) Medical Branch amlodipine 2020-03 Yes 20mg Take 20 mg U nivers besylate 0-08 by mouth. ity of (AMLODIPINE 08:08: [place] ORAL) Medical Branch amlodipine 2020-03 Yes 20mg Take 20 mg U nivers besylate 0-08 by mouth. ity of (AMLODIPINE 08:08: [place] ORAL) Medical Branch carisoprodo 2020-03 Yes 350mg Take 350 U nivers L 350 mg 0-08 mg by ity of tablet 08:00: mouth. [place] [address] Medical Branch metoprolol 2020-03 Yes 100mg Take 100 Un ana succinate 0-08 mg by ity of XL 100 mg 08:00: mouth. [place] 24 hr Medical tablet Branch carisoprodo 2020-03 Yes 350mg Take 350 U nivers L 350 mg 0-08 mg by ity of tablet 08:00: mouth. [place] [address] Medical Branch metoprolol 2020-03 Yes 100mg Take 100 Un ana succinate 0-08 mg by ity of XL 100 mg 08:00: mouth. [place] 24 hr Medical tablet Branch carisoprodo 2020-03 Yes 350mg Take 350 U nivers L 350 mg 0-08 mg by ity of tablet 08:00: mouth. [place] [address] Medical Branch metoprolol 2020-03 Yes 100mg Take 100 Un ana succinate 0-08 mg by ity of XL 100 mg 08:00: mouth. [place] 24 hr Medical tablet Branch carisoprodo 2020-03 Yes 350mg Take 350 U nivers L 350 mg 0-08 mg by ity of tablet 08:00: mouth. [place] [address] Medical Branch metoprolol 2020- Yes 100mg Take 100 Un ana succinate 0-08 mg by ity of XL 100 mg 08:00: mouth. [place] [address] [place] [address] Branch Immunizations Ordered Filled Immunization Date Status Comments [facility] e Immunization Name Name HPV9 2021-04-12 Completed [facility] 00:00:00 [facility] HPV9 2021-04-12 Completed [facility] 00:00:00 [facility] HPV9 2021-04-12 Completed [facility] 00:00:00 [facility] 2021-04-12 Completed University 00:00:00 [facility] Influenza Virus 2020-12-17 Completed Universit y of Vaccine Quad IM, 00:00:00 [facility] dical Preserv and ABX Branch Free 6 MO-64 YRS Influenza Virus 2020-12-17 Completed Universit y of Vaccine [facility] IM, 00:00:00 [facility] dical Preserv and ABX Branch Free 6 MO-64 YRS Influenza Virus 2020-12-17 Completed Universit y of Vaccine Quad IM, 00:00:00 [facility] dical Preserv and ABX Branch Free 6 MO-64 YRS Influenza Virus 2020-12-17 Completed Universit y of Vaccine Quad IM, 00:00:00 [facility] dical Preserv and ABX Branch Free 6 MO-64 YRS Influenza Virus 2019-12-15 Completed Universit y of Vaccine Quad .5 mL 00:00:00 [place] Medical IM 6+ MO Branch Influenza Virus 2019-12-15 Completed Universit y of Vaccine Quad .5 mL 00:00:00 [place] Medical IM 6+ MO Branch Influenza Virus 2019-12-15 Completed Universit y of Vaccine Quad .5 mL 00:00:00 [place] Medical IM 6+ MO Branch Influenza Virus 2019-12-15 Completed Universit y of Vaccine Quad .5 mL 00:00:00 [facility] 6+ MO Branch TDAP 2014-08-04 Completed University 00:00:00 [facility] TDAP 2014-08-04 Completed University 00:00:00 [facility] TDAP 2014-08-04 Completed University 00:00:00 [facility] TDAP 2014-08-04 Completed University 00:00:00 [facility] Vital Signs Vital Name Observation Time Observation Value Comments Source Systolic blood 2021-04-12 14:50:00 136 mm[Hg] Univer sity of pressure [facility] Diastolic blood 2021-04-12 14:50:00 84 mm[Hg] Unive rsity of [facility] Heart rate 2021-04-12 14:42:00 99 /min [facility] Body temperature 2021-04-12 14:42:00 36.33 Naheed [facility] Respiratory rate 2021-04-12 14:42:00 19 /min General acute hospital Body height 2021-04-12 14:42:00 162.6 cm [facility] Body weight 2021-04-12 14:42:00 112.855 kg [facility] BMI 2021-04-12 14:42:00 42.71 kg/m2 [facility] Procedures Procedure Date / Time Performing Clinician Source Performed BCCS-RELATED 2021-05-27 05:01:00 Doctor Unassigned, No [facility] GARDASIL 9 (HPV 9V) 2021-04-12 15:06:22 Tia Altamirano [facility] VACCINE [facility] POCT TEST 2021-04-12 00:00:00 Tia Altamirano [facility] Encounters Start End Encounter Admission Attending Care Care Encounter Source Date/Time Date/Time Type Type Clinicians Facility Department ID 2022-04-19 2022-04-19 Outpatient R BRANDON, [facility] [id number] Univers 08:15:00 08:15:00 KIEL [id number] ity o f [facility] 2021-05-27 2021-05-27 Orders Doctor HELEN [id number] Univers 00:00:00 00:00:00 Only Unassigned, ELLEN [id number] ity of Ranlo [facility] [id number] Sanjay as [id number] [address] 2021-05-04 2021-05-04 HAYLEY Amanda [id number] Univers 00:00:00 00:00:00 Management Esha Y HEALTH [id number] ity of [place] [id number] [address] 2021-04-19 2021-04-19 Telephone ElinaHALEY sanabriaIT [id number] Univers 00:00:00 00:00:00 Tia Y HEALTH [id number] i ty [place] [id number] [address] 2021-04-12 2021-04-12 Office Res-Colpo/Leep, [facility] UNIVERSI T [id number] Univers 08:30:00 10:05:01 Visit Carloz Pineda Y HEALTH [id number] ity [place] [id number] [address] 2021-04-12 2021-04-12 Outpatient R MIRIAM [facility] [id number] Univers 08:30:00 10:05:01 [facility] 2020-05-27 2020-05-27 Office Res-Colpo/L UNIVERSIT [id number] 08:47:55 09:27:03 Visit brittanie Y HEALTH [id number] [facility] 4.2.7.2.686 [id number] 2020-05-27 2020-05-27 Orders Doctor HELEN [id number] 00:00:00 00:00:00 Only Unassigned, ELLEN [id number] Ranlo [facility] 4.2.7.2.686 [id number] Results Test Description Test Time Test Comments Results Result Comments Source POCT TEST 2021-04-12 15:00:00 Test Item Value Reference Range Interpretation Comme nts POCT PREG (test code = 1605) Negative On board controls acceptable with C Line (test code = 3574) Yes POCT PREG LOT # (test code = 3575) POCT PREG TEST DATE (test code = 3576) [facility] [place] [facility], BRAIN, WITHOUT [id number] 09:22:00Reason for exam:->StrokeWhat is the patient's sedation requirement?- >No SedationFINAL REPORT MRA Head CLINICAL HISTORY: Stroke TECHNIQUE: MRA of the head utilizing 3-D vxhu-ga-qyqqyb technique, with 3-D reconstructions. COMPARISON: None IMPRESSION: The studyis motion, but there is no evidence for a false pass of [place] proximal branch vessel occlusion. Aneurysm s cannot be excluded. If clinically warranted, repeat imaging should be performed. MRA Neck CLINICAL HISTORY: Stroke TECHNIQUE: MRA of the neck utilizing 2-D and 3-D ykmp-xj-gmjalf technique, with 3-D reconstructions. COMPARISON: None FINDINGS: The carotid arteries in the neck are patent including their bifurcations. There is antegrade flow in the vertebral arteries in the neck. IMPRESSION: No evidence of hemodynamically significant stenosis in the cervical carotid or vertebral arteries by NASCET criteria. Signed: Rocco Ragsdale Verified Date/Time: 09/29/2018 09:22:59 Reading Location: [address] Neuro Reading Room MR, MRA, NECK, WITHOUT IV [id number] 09:22:00FINAL REPORT MRA Head CLINICAL HISTORY: Stroke TECHNIQUE: MRA of the head utilizing 3-D cksc-tq-yozohd technique, with 3-D reconstructions. COMPARISON: None IMPRESSION: The studyis motion, but there is no evidence for a false pass of [place] proximal branch vessel occlusion. Aneurysms cannot be excluded. If clinically warranted, repeat imaging should be performed. MRA Neck CLINICA L HISTORY: Stroke TECHNIQUE: MRA of the neck utilizing 2-D and 3-D fuuq-xe-weauyn technique, with 3-D reconstructions. COMPARISON: None FINDINGS: The carotid arteries in the neck are patent including their bifurcations. There is antegrade flow in the vertebral arteries in the neck. IMPRESSION: No ev idence of hemodynamically significant stenosis in the cervical carotid or vertebral arteries by NASCET criteria. Signed: Rocco Ragsdale Verified Date/Time: 09/29/2018 09:22:59 Reading Location: [address] Neuro Reading Room , BRAIN, WITHOUT [id number] 09:05:00FINAL REPORT MRI Brain without contrast Clinical History: Stroke [...] maintain a normal rounded configuration. The major in tracranial flow-voids appear patent. IMPRESSION: No evidence of infarct, hemorrhage, or hydrocephalus. Signed: Rocco Ragsdale MDReport Verified Date/Time: 09/29/2018 09:05:00 Reading Location: [address] Neuro Reading Room BASIC METABOLIC [id number] 07:07:00 Test Item Value Reference Range Interpretation Comments SODIUM (BEAKER) 137 meq/L 136-145 (test code = 381) POTASSIUM (BEAKER) 3.6 meq/L 3.5-5.1 (test code = 379) CHLORIDE (BEAKER) 106 meq/L 98-107 (test code = 382) CO2 (BEAKER) (test 23 meq/L 22-29 code = 355) BLOOD UREA NITROGEN 4 mg/dL 7-21 L (BEAKER) (test code = 354) CREATININE (BEAKER) 0.66 mg/dL 0.57-1.25 (test code = 358) GLUCOSE RANDOM 228 mg/dL 70-105 H (BEAKER) (test code = 652) CALCIUM (BEAKER) 8.8 mg/dL 8.4-10.2 (test code = 697) EGFR (BEAKER) (test 122 mL/min/1.73 ESTIM ATED GFR IS code = 1092) sq m NOT ACCURATE CREATININE CLEARANCE IN PREDICTING GLOMERULAR FILTRATION RATE . ESTIMATED GFR I S NOT APPLICABLE FOR DIALYSIS PATIEN TS. LIPID [id number] 07:07:00 Test Item Value Reference Range Interpretation [...] Very High >=190CBC W/PLT COUNT & AUTO [id number] 05:34:00 Test Item Value Reference Range Interpretation [...] PERCENT (BEAKER) (test code = 2801) TROPONIN [id number] 18:14:00 Test Item Value Reference Range Interpretation [...] acidosis, acute neurological disease, and persistent tachyarrhythmia.POCT-GLUCOSE [id number] 17:19:00 Test Item Value Reference Range Interpretation Comments POC-GLUCOSE METER 193 mg/dL 70-110 H TESTED AT [facility] 67[address] ([facility]) (test code = EAMONOH Charles [facility] 1538) [address] TSH/FREE T4 IF [id number] 15:44:00 Test Item Value Reference Range Interpretation Comments THYROID STIMULATING HORMONE 0.69 uIU/mL 0.35-4.94 (BEAKER) (test code = 772) VITAMIN B12 AND [id number] 15:44:00 Test Item Value Reference Range Interpretation Comments VITAMIN B12 (BEAKER) (test code = 635 pg/mL 213-816 774) [facility] (test code = 362) 11.7 ng/mL >=7.0 HEMOGLOBIN [id number] 15:37:00 Test Item Value Reference Range Interpretation Comments HEMOGLOBIN A1C (BEAKER) (test code = 11.2 % 4.3-6.1 H 368) SCREEN, [id number] 15:16:00 Test Item Value Reference Range Interpretation Comments TEST URINE (BEAKER) (test Negative code = 583) TROPONIN [id number] 15:14:00 Test Item Value Reference Range Interpretation [...] acute neurological disease, and persistent tachyarrhythmia.HEPATIC FUNCTION [id number] 15:08:00 Test Item Value Reference Range Interpretation [...] (test code = 13 U/L 6-55 347) [id number] 15:01:00 Test Item Value Reference Range Interpretation [...] of thrombosis is within 95-100% range.POCT- GLUCOSE [id number] 11:40:00 Test Item Value Reference Range Interpretation Comments POC-GLUCOSE METER 226 mg/dL 70-110 H TESTED AT [place] [address] ([facility]) (test code = NADEEN HERNANDEZ 1537) [id number]
--- NOTE | 2021-06-06 16:52 | ER ---
Nurse's Notes [facility] Name: Soco Mcgrath Age: 40 yrs Sex: Female : 1980 Arrival Date: 06/06/2021 Time: 16:40 Bed 12 Private MD: Diagnosis: Dental pain Presentation: 06/06 16:44 Chief complaint: Patient states: my LEFT side back tooth is bad and i cant get into the tw2 dentis. it is definetly infected. it has been bothering me for 2 weeks now but i cant take the pain anymore. Coronavirus screen: At this time, the client does not indicate any symptoms associated with coronavirus-19. Ebola Screen: Patient denies travel to an Ebola-affected area in the 21 days before illness onset. No symptoms or risks identified at this time. Initial Sepsis Screen: Does the patient meet any 2 criteria? HR > 90 bpm. No. Patient's initial sepsis screen is negative. Does the patient have a suspected source of infection? No. Patient's initial sepsis screen is negative. Risk Assessment: Do you want to hurt yourself or someone else? Patient reports no desire to harm self or others. Onset of symptoms was June 06, 2021. 16:44 Method Of Arrival: Ambulatory tw2 16:44 Acuity: JESSICA 4 tw2 Triage Assessment: 16:46 General: Appears uncomfortable, obese, Behavior is calm, cooperative, appropriate for 3 age. Pain: Complains of pain in lower left third molar. EENT: Reports pain since lower LEFT tooth in the back for 2 weeks. Historical: - Allergies: 16:45 No Known Allergies; tw2 - Home Meds: 16:45 Metformin Oral 2 times per day [Active]; lisinopril Oral [Active]; tw2 - PMHx: 16:45 Diabetes - IDDM; Diabetes - NIDDM; Hypertension; uterine cancer; tw2 - Immunization history:: Client reports having NOT received the Covid vaccine. - Social history:: Smoking status: Reported history of juuling and/or vaping. Patient uses alcohol, occasionally. Screenin:06 Abuse screen: Denies threats or abuse. Nutritional screening: No deficits noted. vg1 Tuberculosis screening: No symptoms or risk factors identified. Fall Risk None identified. Assessment: 16:55 General: Appears in no apparent distress. uncomfortable. Pain: Complains of pain in vg1 mouth Pain currently is 10 out of 10 on a pain scale. Neuro: Level of Consciousness is awake, alert, obeys commands, Oriented to person, place, time, situation. Cardiovascular: Patient's skin is warm and dry. Respiratory: Airway Respiratory effort is even, unlabored. GI: No signs and/or symptoms were reported involving the gastrointestinal system. : No signs and/or symptoms were reported regarding the genitourinary system. EENT: No signs and/or symptoms were reported regarding the EENT system. Derm: Skin is intact, is healthy with good turgor. Musculoskeletal: Circulation, motion, and sensation intact. Vital Signs: 16:44 BP 168 / 115; Pulse 116; Resp 17; Temp 97.8(TE); Pain 9/10; tw2 17:03 BP 147 / 100; Pulse 100; Resp 17; Pulse Ox 100% ; vg1 ED Course: 16:40 Patient arrived in ED. as 16:45 Triage completed. tw2 16:45 Arm band placed on. tw2 16:47 Zachariah Fernandez NP is PHCP. pm1 16:47 Checo Garsia MD is Attending Physician. pm1 16:49 Karina Coreas RN is Primary Nurse. vg1 17:06 Patient has correct armband on for positive identification. Bed in low position. Call vg1 light in reach. 17:06 No provider procedures requiring assistance completed. Patient did not have IV access vg1 during this emergency room visit. Administered Medications: 17:05 Drug: Ketorolac 60 mg Route: IM; Site: right deltoid; vg1 17:07 Follow up: Response: Medication administered at discharge. vg1 Outcome: 16:52 Discharge ordered by . pm1 17:06 Discharged to home ambulatory. vg1 17:06 Condition: good 17:06 Discharge instructions given to patient, Instructed on discharge instructions, follow up and referral plans. medication usage, Demonstrated understanding of instructions, follow-up care, medications, Prescriptions given X 1. 17:08 Patient left the ED. vg1 Signatures: Iliana Nielsen Patrick, NP PROCESSOR GRAIN pm1 Angie Yanes RN RN tw2 Karina Coreas RN RN vg1 Corrections: (The following items were deleted from the chart) 17:06 17:06 Fall Risk vg1 vg1
--- NOTE | 2021-06-06 16:52 | EDPHYS ---
Physician Documentation [facility] Name: Soco Mcgrath Age: 40 yrs Sex: Female : 1980 Arrival Date: 06/06/2021 Time: 16:40 Bed 12 Private MD: ED Physician Checo Garsia HPI: 06/06 16:52 This 40 yrs old Black Female presents to ER via Ambulatory with complaints of Toothache.pm1 16:52 The patient presents with pain. The problem is located in the lower left third molar. pm1 Onset: The symptoms/episode began/occurred 2 week(s) ago. Duration: The symptoms are continuous. Associated signs and symptoms: Pertinent negatives: inability to eat, swelling. Severity of symptoms: in the emergency department the symptoms are actually worse. The patient has not experienced similar symptoms in the past. The patient has not recently seen a physician. Historical: - Allergies: 16:45 No Known Allergies; tw2 - Home Meds: 16:45 Metformin Oral 2 times per day [Active]; lisinopril Oral [Active]; tw2 - PMHx: 16:45 Diabetes - IDDM; Diabetes - NIDDM; Hypertension; uterine cancer; tw2 - Immunization history:: Client reports having NOT received the Covid vaccine. - Social history:: Smoking status: Reported history of juuling and/or vaping. Patient uses alcohol, occasionally. ROS: 16:52 Constitutional: Negative for fever, chills, and weight loss. pm1 16:52 Cardiovascular: Negative for chest pain, palpitations, and edema, Respiratory: Negative for shortness of breath, cough, wheezing, and pleuritic chest pain, MS/Extremity: Negative for injury and deformity, Skin: Negative for injury, rash, and discoloration, Neuro: Negative for headache, weakness, numbness, tingling, and seizure. 16:52 ENT: Positive for dental pain, Negative for ear pain, sore throat, difficulty swallowing. 16:52 Neck: Positive for swollen nodes, of the left anterior aspect of neck. 16:52 All other systems are negative. Exam: 16:52 Constitutional: This is a well developed, well nourished patient who is awake, alert, pm1 and in no acute distress. Head/Face: Normocephalic, atraumatic. 16:52 Skin: Warm, dry with normal turgor. Normal color with no rashes, no lesions, and no evidence of cellulitis. MS/ Extremity: Pulses equal, no cyanosis. Neurovascular intact. Full, normal range of motion. 16:52 ENT: Mouth: no acute changes, Lips: normal, moist, Oral mucosa: normal, pink and intact, moist, Dental exam: dental caries, that is moderate, specifically in the lower left third molar (#17) and lower left second molar (#18). 16:52 Cardiovascular: Exam negative for acute changes, Rate: normal, Rhythm: regular, Pulses: no pulse deficits are appreciated. 16:52 Respiratory: Exam negative for acute changes, respiratory distress, shortness of breath. 16:52 Neuro: Exam negative for acute changes, Orientation: is normal, Mentation: is normal, Motor: is normal, moves all fours. Vital Signs: 16:44 BP 168 / 115; Pulse 116; Resp 17; Temp 97.8(TE); Pain 9/10; tw2 17:03 BP 147 / 100; Pulse 100; Resp 17; Pulse Ox 100% ; vg1 MDM: 16:47 Patient medically screened. pm1 16:51 Data reviewed: vital signs. Counseling: I had a detailed discussion with the patient pm1 and/or guardian regarding: the historical points, exam findings, and any diagnostic results supporting the discharge/admit diagnosis, the need for outpatient follow up, for definitive care, a dentist, to return to the emergency department if symptoms worsen or persist or if there are any questions or concerns that arise at home. Administered Medications: 17:05 Drug: Ketorolac 60 mg Route: IM; Site: right deltoid; vg1 17:07 Follow up: Response: Medication administered at discharge. vg1 Disposition Summary: 06/06/21 16:52 Discharge Ordered Location: Home pm1 Problem: new pm1 Symptoms: have improved pm1 Condition: Stable pm1 Diagnosis - Dental pain pm1 Followup: pm1 - With: Emergency Department - When: As needed - Reason: Worsening of condition Followup: pm1 - With: Private Physician - When: 2 - 3 days - Reason: Recheck today's complaints, Continuance of care, Re-evaluation by your physician Discharge Instructions: - Discharge Summary Sheet pm1 - Dental Pain pm1 Forms: - Medication Reconciliation Form pm1 - Thank You Letter pm1 - Antibiotic Education pm1 - Prescription Opioid Use pm1 Prescriptions: - Amoxicillin 500 mg Oral Capsule - take 1 capsule by ORAL route every 8 hours for 10 days; 30 tablet; Refills: 0, pm1 Product Selection Permitted Addendum: 06/09/2021 06:30 Co-signature as Attending Physician, Checo Garsia MD I agree with the assessment and c vargas plan of care. Signatures: Checo Garsia, Zachariah Oh MD, cha, [employer] pm1 Angie Yanes RN RN tw2 Karina Coreas RN RN vg1
[2021-06-06] MEDS ORDERED: KETOROLAC 30 MG/ML INJ ONE (17:02)
[2021-06-06 18:12] VITALS: TEMP 97.8
[2021-06-06 18:13] VITALS: BP 147/100; O2SAT 100
== END 2021-06-06 17:08 | disposition home or self-care (01) ==
LOC: ER 16:39
DX: K08.89 Other specified disorders of teeth and supporting structures (principal); E11.9 Type 2 diabetes mellitus without complications; I10 Essential (primary) hypertension; Z85.42 Personal history of malignant neoplasm of other parts of uterus
CPT/HCPCS: 96372; 99283

== ENCOUNTER 2021-09-04 11:42 | Emergency (ER) | payer SELFPAY ==
--- OUTSIDE RECORDS SUMMARY | 2021-09-04 11:45 | XMS REPORT | Continuity of Care Document ---
:1980 Author Organization [facility] t Address [address] [place] [address] Care Team Providers Name Role Phone Pcp, Does Not Have A Primary Care Physician Esha TAYLOR Attending Clinician Unavailable Doctor Unassigned, Name Attending Clinician Unavailable Jeff VELAZQUEZ Attending Clinician Adarsh MEJÍA Attending Clinician Res-Colpo/Leep Attending Clinician Unavailable Varghese Pineda MD Attending Clinician Varghese PINEDA Attending Clinician Unavailable KUNAL Attending Clinician Unavailable KUNAL Admitting Clinician Unavailable Payers Payer Name Policy Type Policy Number Effective Date Expiration Date S ource Problems Condition Condition Condition Status Onset Resolution Last Treating Co mments Source Name Details Category Date Date Treatment Clinician Date Papanicola Papanicola Disease Active 2021-0 U nivers ou smear ou smear 2- ity of of cervix of cervix 00:00: [...] Active U nivers 7-20 ity of 00:00: [facility] HLD HLD Disease Active Univers (hyperlipi (hyperlipi 7-20 it y of demia) demia) 00:00: [place] [facility] Branch Cervical Cervical Disease Active Unive rs high risk high risk 5-30 ity of human human 00:00: [place] papillomav papillomav 00 Me dical irus (HPV) irus (HPV) Br anch DNA test DNA test positive positive Morbid Morbid Disease Active Univers obesity obesity 5-26 ity of 00:00: [facility] Tobacco Tobacco Disease Active Univers use use 5-26 ity of disorder disorder 00:00: [address] Allergies, Adverse Reactions, Alerts Allergy Allergy Status Severity Reaction(s) Onset Inactive Treating Comm ents Source Name Type Date Date Clinician NO KNOWN Drug Active Univers ALLERGIE Class ity of S [facility] Social History Social Habit Start Date Stop Date Quantity Comments Source History of Cigarette Smoker Universi ty of tobacco use [facility] Exposure to Not sure University of SARS-CoV-2 [facility] (event) [place] Alcohol intake 2021-04-12 2021-04-12 Current drinker Unive rsity of 00:00:00 00:00:00 of alcohol [facility] (finding) [place] Sex Ass[birth year] At [birth year] Universit y of 00:00:00 00:00:00 [facility] Smoking Status Start Date Stop Date Source Current every day smoker 2020-06-16 00:00:00 Uni versity of [facility] Medications Ordered Filled Start Stop Current Ordering Indication Dosage Frequency Signature Comments Components Source Medication Medication Date Date Medication? Clinician (SIG) Name Name metformin 2020-03 Yes 500mg Take 500 Uni vers HCl 0-08 mg by ity of (METFORMIN 08:08: mouth. [place] ORAL) 03 [facility] Branch metformin 2020-03 Yes 500mg Take 500 [...] mg by ity of tablet 08:00: mouth. [place] [address] Medical Branch metoprolol 2020-03 Yes 100mg Take 100 Un ana succinate 0-08 mg by ity of XL 100 mg 08:00: mouth. [place] 24 hr Medical tablet Branch carisoprodo 2020-03 Yes 350mg Take 350 U nivers L 350 mg 0-08 mg by ity of tablet 08:00: mouth. [place] [address] Medical Branch metoprolol 2020-03 Yes 100mg Take 100 Un ana succinate 0-08 mg by ity of XL 100 mg 08:00: mouth. [place] 24 hr Medical tablet Branch carisoprodo 2020-03 Yes 350mg Take 350 U nivers L 350 mg 0-08 mg by ity of tablet 08:00: mouth. [place] [address] Medical Branch metoprolol 2020-03 Yes 100mg Take 100 Un ana succinate 0-08 mg by ity of XL 100 mg 08:00: mouth. [place] 24 hr Medical tablet Branch carisoprodo 2020-03 Yes 350mg Take 350 U nivers L 350 mg 0-08 mg by ity of tablet 08:00: mouth. [place] [address] Medical [place] metoprolol 2020- Yes 100mg Take 100 Un ana succinate 0-08 mg by ity of XL 100 mg 08:00: mouth. [place] [address] [place] [address] Branch Immunizations Ordered Filled Immunization Date Status Comments [facility] e Immunization Name Name HPV9 2021-04-12 Completed [facility] 00:00:00 [facility] HPV9 2021-04-12 Completed [facility] 00:00:00 [facility] HPV9 2021-04-12 Completed [facility] 00:00:00 [facility]9 2021-04-12 Completed University 00:00:00 [facility] Influenza Virus 2020-12-17 Completed Universit y of Vaccine Quad IM, 00:00:00 [facility] dical Preserv and ABX Branch Free 6 MO-64 YRS Influenza Virus 2020-12-17 Completed Universit y of Vaccine [facility] IM, 00:00:00 [facility] dical Preserv and ABX Branch Free 6 MO-64 YRS Influenza Virus 2020-12-17 Completed Universit y of Vaccine [facility] IM, 00:00:00 [facility] dical Preserv and ABX Branch Free 6 MO-64 YRS Influenza Virus 2020-12-17 Completed Universit y of Vaccine [facility] IM, 00:00:00 [facility] dical Preserv and ABX Branch Free 6 MO-64 YRS Influenza Virus 2019-12-15 Completed Universit y of Vaccine [place] .5 mL 00:00:00 [place] Medical IM 6+ MO Branch Influenza Virus 2019-12-15 Completed Universit y of Vaccine [place] .5 mL 00:00:00 [place] Medical IM 6+ MO Branch Influenza Virus 2019-12-15 Completed Universit y of Vaccine Quad .5 mL 00:00:00 [place] Medical IM 6+ MO Branch Influenza Virus 2019-12-15 Completed Universit y of Vaccine Quad .5 mL 00:00:00 [facility] 6+ MO Branch TDAP 2014-08-04 Completed [facility] 00:00:00 [facility] TDAP 2014-08-04 Completed [facility] 00:00:00 [facility] TDAP 2014-08-04 Completed [facility] 00:00:00 [facility] TDAP 2014-08-04 Completed [facility] 00:00:00 [facility] Vital Signs Vital Name Observation Time Observation Value Comments Source Systolic blood 2021-04-12 14:50:00 136 mm[Hg] Univer sity of pressure [facility] Diastolic blood 2021-04-12 14:50:00 84 mm[Hg] Unive rsity [facility] Heart rate 2021-04-12 14:42:00 99 /min [facility] Body temperature 2021-04-12 14:42:00 36.33 Naheed [facility] Respiratory rate 2021-04-12 14:42:00 19 /min [facility] Body height 2021-04-12 14:42:00 162.6 cm [facility] Body weight 2021-04-12 14:42:00 112.855 kg [facility] BMI 2021-04-12 14:42:00 42.71 kg/m2 [facility] Procedures Procedure Date / Time Performing Clinician Source Performed BCCS-RELATED 2021-05-27 05:01:00 Doctor Unassigned, No [facility] DOCUMENTATION [facility] GARDASIL 9 (HPV 9V) 2021-04-12 15:06:22 Tia Altamirano [facility] VACCINE [facility] POCT TEST 2021-04-12 00:00:00 Tia Altamirano [facility] Encounters Start End Encounter Admission Attending Care Care Encounter Source Date/Time Date/Time Type Type Clinicians Facility Department ID 2022-04-19 2022-04-19 Outpatient R BRANDON, [facility] [id number] Univers 08:15:00 08:15:00 KIEL [id number] ity o f [facility] 2021-05-27 2021-05-27 Orders Doctor CERVANTES [id number] Univers 00:00:00 00:00:00 Only Unassigned, ELLEN [id number] ity of [place] [facility] 4.2.7.2.686 Sanjay as [id number] [address] 2021-05-04 2021-05-04 HAYLEY Amanda [id number] Univers 00:00:00 00:00:00 Management Esha Y HEALTH [id number] ity [place] [id number] [address] 2021-04-19 2021-04-19 Telephone HALEY AltamiranoIT [id number] Univers 00:00:00 00:00:00 Tia Y HEALTH [id number] i [place] [id number] [address] 2021-04-12 2021-04-12 Office Res-Colpo/Leep, [facility] UNIVERSI T [id number] Univers 08:30:00 10:05:01 Visit Carloz Pineda Y HEALTH [id number] ity of CLINICS 4.2.7.2.686 [place] [id number] [address] 2021-04-12 2021-04-12 Outpatient Charles PINEDA [facility] [id number] Univers 08:30:00 10:05:01 CARLOZ [facility] 2020-05-27 2020-05-27 Office Res-Colpo/L UNIVERSIT [id number] 08:47:55 09:27:03 Visit brittanie Y HEALTH [id number] [facility] CLINICS 4.2.7.2.686 [id number] 2020-05-27 2020-05-27 Orders Doctor HELEN [id number] 00:00:00 00:00:00 Only Unassigned, ELLEN [id number] [place] [facility] 4.2.7.2.686 [id number] Results Test Description Test Time Test Comments Results Result Comments Source POCT TEST 2021-04-12 15:00:00 Test Item Value Reference Range Interpretation Comme nts POCT PREG (test code = 1605) Negative On board controls acceptable with C Line (test code = 3574) Yes POCT PREG LOT # (test code = 3575) POCT PREG TEST DATE (test code = 3576) [facility], WITHOUT [id number] 09:22:00Reason for exam:->StrokeWhat is the patient's sedation requirement?- >No SedationFINAL REPORT MRA Head CLINICAL HISTORY: Stroke TECHNIQUE: MRA of the head utilizing 3-D tysf-qs-gcvoga technique, with 3-D reconstructions. COMPARISON: None IMPRESSION: The studyis motion, but there is no evidence for a [place] proximal branch vessel occlusion. Aneurysm s cannot be excluded. If clinically warranted, repeat imaging should be performed. MRA Neck CLINICAL HISTORY: Stroke TECHNIQUE: MRA of the neck utilizing 2-D and 3-D yivr-st-ecruxs technique, with 3-D reconstructions. COMPARISON: None FINDINGS: The carotid arteries in the neck are patent including their bifurcations. There is antegrade flow in the vertebral arteries in the neck. IMPRESSION: No evidence of hemodynamically significant stenosis in the cervical carotid or vertebral arteries by NASCET criteria. Signed: Rocco Ragsdale Verified Date/Time: 09/29/2018 09:22:59 Reading Location: [address] Neuro Reading Room MR, MRA, NECK, WITHOUT IV [id number] 09:22:00FINAL REPORT MRA Head CLINICAL HISTORY: Stroke TECHNIQUE: MRA of the head utilizing 3-D ycrm-ed-fwqbfh technique, with 3-D reconstructions. COMPARISON: None IMPRESSION: The studyis motion, but there is no evidence for a [place] proximal branch vessel occlusion. Aneurysms cannot be excluded. If clinically warranted, repeat imaging should be performed. MRA Neck CLINICA L HISTORY: Stroke TECHNIQUE: MRA of the neck utilizing 2-D and 3-D wxdw-ca-yytffs technique, with 3-D reconstructions. COMPARISON: None FINDINGS: The carotid arteries in the neck are patent including their bifurcations. There is antegrade flow in the vertebral arteries in the neck. IMPRESSION: No ev idence of hemodynamically significant stenosis in the cervical carotid or vertebral arteries by NASCET criteria. Signed: Rocco Ragsdale Verified Date/Time: 09/29/2018 09:22:59 Reading Location: [address] Neuro Reading Room , BRAIN, WITHOUT [id number] 09:05:00FINAL REPORT MRI Brain without contrast Clinical [...] MDReport Verified Date/Time: 09/29/2018 09:05:00 Reading Location: [address] Neuro Reading Room BASIC METABOLIC [id number] 07:07:00 Test Item Value Reference Range Interpretation [...] NOT APPLICABLE FOR DIALYSIS PATIEN TS. LIPID [id number] 07:07:00 Test Item Value Reference Range Interpretation [...] Very High >=190CBC W/PLT COUNT & AUTO [id number] 05:34:00 Test Item Value Reference Range Interpretation [...] PERCENT (BEAKER) (test code = 2801) TROPONIN [id number] 18:14:00 Test Item Value Reference Range Interpretation [...] acidosis, acute neurological disease, and persistent tachyarrhythmia.POCT-GLUCOSE [id number] 17:19:00 Test Item Value Reference Range Interpretation Comments POC-GLUCOSE METER 193 mg/dL 70-[address] [facility] 67[address] ([facility]) (test code = [facility] 1538) [address] TSH/FREE T4 IF [id number] 15:44:00 Test Item Value Reference Range Interpretation Comments THYROID STIMULATING HORMONE 0.69 uIU/mL 0.35-4.94 (AKER) (test code = 772) VITAMIN B12 AND [id number] 15:44:00 Test Item Value Reference Range Interpretation Comments VITAMIN B12 (BEAKER) (test code = 635 pg/mL 213-816 774) FOLATE ([facility]) (test code = 362) 11.7 ng/mL >=7.0 HEMOGLOBIN [id number] 15:37:00 Test Item Value Reference Range Interpretation Comments HEMOGLOBIN A1C (BEAKER) (test code = 11.2 % 4.3-6.1 H 368) SCREEN, [id number] 15:16:00 Test Item Value Reference Range Interpretation Comments TEST URINE (BEAKER) (test Negative code = 583) TROPONIN [id number] 15:14:00 Test Item Value Reference Range Interpretation [...] acute neurological disease, and persistent tachyarrhythmia.HEPATIC FUNCTION [id number] 15:08:00 Test Item Value Reference Range Interpretation [...] (test code = 13 U/L 6-55 347) [id number] 15:01:00 Test Item Value Reference Range Interpretation [...] of thrombosis is within 95-100% range.POCT- GLUCOSE [id number] 11:40:00 Test Item Value Reference Range Interpretation Comments POC-GLUCOSE METER 226 mg/dL 70-110 H TESTED AT [place] [address] ([facility]) (test code = [facility] [place] 1538) [id number]
[2021-09-04] MEDS ORDERED: HYDROCODONE/APAP 10/325 TAB ONE (13:04)
[2021-09-04] MEDS ORDERED: KETOROLAC 30 MG/ML INJ ONE (13:04)
[2021-09-04] MEDS ORDERED: CYCLOBENZAPRINE 10 MG TAB ONE (13:04)
[2021-09-04] MEDS ORDERED: LIDOCAINE 4% PATCH ONE (13:05)
--- NOTE | 2021-09-04 14:20 | ER ---
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 Took Flexeril and Hydrocodone at 0800 and stated "its not helping me". Coronavirus screen: Vaccine status: Patient reports receiving the 2nd dose of the covid vaccine. Client denies travel out of the [place] in the last 14 days. Ebola Screen: Patient denies exposure to infectious person. Patient denies travel to an Ebola-affected area in the 21 days before illness onset. Initial Sepsis Screen: Does the patient meet any 2 criteria? HR > 90 bpm. Does the patient have a suspected source of infection? No. Patient's initial sepsis screen is negative. Risk Assessment: Do you want to hurt yourself or someone else? Patient reports no desire to harm self or others. Onset of symptoms was September 02, 2021. 12:34 Method Of Arrival: Ambulatory as6 12:34 Acuity: JESSICA 4 as6 Triage Assessment: 12:35 General: Appears uncomfortable, Behavior is cooperative. Pain: Complains of pain in as6 back Pain currently is 10 out of 10 on a pain scale. Musculoskeletal: Circulation, motion, and sensation intact. Reports numbness in left hand. MED DIR: 12:35 LMP 08/30/2021 as6 Historical: - Allergies: 12:35 No Known Allergies; as6 - Home Meds: 12:35 lisinopril Oral [Active]; Metformin Oral 2 times per day [Active]; as6 - PMHx: 12:35 Diabetes - IDDM; Diabetes - NIDDM; Hypertension; uterine cancer; as6 - PSHx: 12:35 section; as6 - Immunization history:: Client reports receiving the 2nd dose of the Covid vaccine. - Social history:: Smoking status: Patient/guardian denies using tobacco, Stopped _ months ago 5. Screenin:06 Abuse screen: Denies threats or abuse. Nutritional screening: No deficits noted. jd3 Tuberculosis screening: No symptoms or risk factors identified. Fall Risk Ambulatory Aid- None/Bed Rest/Nurse Assist (0 pts). Gait- Normal/Bed Rest/Wheelchair (0 pts) Mental Status- Oriented to own ability (0 pts). Total Vieira Fall Scale indicates No Risk (0-24 pts). Assessment: 13:00 General: Appears in no apparent distress. comfortable, Behavior is calm, cooperative, jd3 appropriate for age. Pain: Complains of pain in back Quality of pain is described as sharp, shooting, tender, pinching. Neuro: Savage Agitation-Sedation Scale (RASS): 0 - Alert and Calm Level of Consciousness is awake, alert, obeys commands, Oriented to person, place, time, situation. 13:00 Cardiovascular: Capillary refill < 3 seconds Patient's skin is warm and dry. jd3 Respiratory: Airway is patent Respiratory effort is even, unlabored, Respiratory pattern is regular, symmetrical, Denies cough, shortness of breath. GI: No signs and/or symptoms were reported involving the gastrointestinal system. : No signs and/or symptoms were reported regarding the genitourinary system. EENT: No signs and/or symptoms were reported regarding the EENT system. Derm: Skin is intact, Skin is dry, Skin is normal, Skin temperature is warm. Musculoskeletal: Circulation, motion, and sensation intact. Range of motion: intact in all extremities. 14:13 Reassessment: Patient appears in no apparent distress at this time. Patient and/or jd3 family updated on plan of care and expected duration. Pain level reassessed. Patient is alert, oriented x 3, equal unlabored respirations, skin warm/dry/pink. Patient states feeling better. Patient states symptoms have improved. Vital Signs: 12:34 BP 157 / 115; Pulse 109; Resp 16; Temp 98.2(TE); Pulse Ox 98% on R/A; Weight 112.49 kg; as6 Height 5 ft. 4 in. (162.56 cm); Pain 10/10; 14:35 BP 150 / 100; Pulse 99; Resp 16 S; Pulse Ox 98% on R/A; jd3 12:34 Body Mass Index 42.57 (112.49 kg, 162.56 cm) as6 ED Course: 11:44 Patient arrived in ED. as 12:35 Triage completed. as6 12:35 Arm band placed on. as6 12:44 Zachariah Fernandez NP is PHCP. pm1 12:44 Fish Hester MD is Attending Physician. pm1 12:55 Garrett Martinez RN is Primary Nurse. jd3 13:06 Patient has correct armband on for positive identification. Bed in low position. Call jd3 light in reach. Side rails up X 1. Pulse ox on. NIBP on. 14:35 No provider procedures requiring assistance completed. Patient did not have IV access jd3 during this emergency room visit. Administered Medications: 13:05 Drug: Ketorolac 60 mg Route: IM; Site: left gluteus; jd3 14:00 Follow up: Response: No adverse reaction jd3 13:05 Drug: Flexeril (cyclobenzaprine) 10 mg Route: PO; jd3 14:00 Follow up: Response: No adverse reaction jd3 13:05 Drug: [place] (HYDROcodone-acetaminophen) 10 mg-325 mg 1 tabs Route: PO; jd3 14:00 Follow up: Response: No adverse reaction; RASS: Alert and Calm (0) jd3 13:05 Drug: Lidoderm Patch 5 % (700 mg/patch) 1 patches Route: Topical; Site: affected area; jd3 14:00 Follow up: Response: No adverse reaction jd3 Medication: 13:07 VIS not applicable for this client. jd3 Outcome: 14:20 Discharge ordered by MD. pm1 14:35 Discharged to home ambulatory, with family. jd3 14:35 Condition: stable 14:35 Discharge instructions given to patient, Instructed on discharge instructions, follow up and referral plans. medication usage, Demonstrated understanding of instructions, follow-up care, medications, Prescriptions given X 3. 14:36 Patient left the ED. jd3 Signatures: Iliana Nielsen Patrick, NP ASSISTANT MANAGER RETAIL pm1 Garrett Martinez RN RN jd3 Karina Coreas RN RN vg1 Nadir Moss RN RN as6 Corrections: (The following items were deleted from the chart) 12:39 12:34 Chief complaint: Patient states: was landscaping on [address] and states since then vg1 has been having trouble standing up straight and lower back pain, also states Left hand numbness. as6
--- NOTE | 2021-09-04 14:21 | EDPHYS ---
Physician Documentation [facility] Name: Soco Mcgrath Age: 41 yrs Sex: Female : 1980 Arrival Date: 09/04/2021 Time: 11:44 Bed 11 Private MD: ED Physician Fish Hester HPI: 09/04 12:55 This 41 yrs old Black Female presents to ER via Ambulatory with complaints of Back Pain.pm1 12:55 The patient presents with pain that is acute. The symptoms are located in the low back. pm1 Onset: The symptoms/episode began/occurred yesterday. The pain does not radiate. Associated signs and symptoms: Pertinent negatives: abdominal pain, chest pain, dysuria, incontinence, nausea, vomiting, weakness. The problem was sustained when bending over, when lifting working on the yard. Modifying factors: The patient symptoms are alleviated by remaining still, the patient symptoms are aggravated by movement. Severity of symptoms: in the emergency department the symptoms are actually worse. The patient has experienced similar episodes in the past, a few times. The patient has not recently seen a physician. DISH PERSON: 12:35 LMP 08/30/2021 as6 Historical: - Allergies: 12:35 No Known Allergies; as6 - Home Meds: 12:35 lisinopril Oral [Active]; Metformin Oral 2 times per day [Active]; as6 - PMHx: 12:35 Diabetes - IDDM; Diabetes - NIDDM; Hypertension; uterine cancer; as6 - PSHx: 12:35 section; as6 - Immunization history:: Client reports receiving the 2nd dose of the Covid vaccine. - Social history:: Smoking status: Patient/guardian denies using tobacco, Stopped _ months ago 5. ROS: 12:55 Constitutional: Negative for fever, chills, and weight loss, Cardiovascular: Negative pm1 for chest pain, palpitations, and edema, Respiratory: Negative for shortness of breath, cough, wheezing, and pleuritic chest pain, Abdomen/GI: Negative for abdominal pain, nausea, vomiting, diarrhea, and constipation. 12:55 MS/Extremity: Negative for injury and deformity, Skin: Negative for injury, rash, and discoloration, Neuro: Negative for headache, weakness, numbness, tingling, and seizure. 12:55 Back: Positive for pain with movement, of the left low back. 12:55 All other systems are negative. Exam: 12:55 Constitutional: This is a well developed, well nourished patient who is awake, alert, pm1 and in no acute distress. Head/Face: Normocephalic, atraumatic. 12:55 MS/ Extremity: Pulses equal, no cyanosis. Neurovascular intact. Full, normal range of motion. 12:55 Cardiovascular: Exam negative for acute changes, Rate: normal, Rhythm: regular, Pulses: no pulse deficits are appreciated, Heart sounds: normal. 12:55 Respiratory: Exam negative for acute changes, respiratory distress, shortness of breath, Breath sounds: are clear throughout. 12:55 Back: vertebral tenderness, is not appreciated, muscle spasm, is appreciated in the left low back. 12:55 Neuro: Exam negative for acute changes, Orientation: is normal, Mentation: is normal, Motor: is normal, moves all fours. Vital Signs: 12:34 BP 157 / 115; Pulse 109; Resp 16; Temp 98.2(TE); Pulse Ox 98% on R/A; Weight 112.49 kg; as6 Height 5 ft. 4 in. (162.56 cm); Pain 10/10; 14:35 BP 150 / 100; Pulse 99; Resp 16 S; Pulse Ox 98% on R/A; jd3 12:34 Body Mass Index 42.57 (112.49 kg, 162.56 cm) as6 MDM: 12:50 Patient medically screened. pm1 14:19 Data reviewed: vital signs. Data interpreted: Pulse oximetry: on room air is 98 %. pm1 Interpretation: normal. Counseling: I had a detailed discussion with the patient and/or guardian regarding: the historical points, exam findings, and any diagnostic results supporting the discharge/admit diagnosis, the need for outpatient follow up, to return to the emergency department if symptoms worsen or persist or if there are any questions or concerns that arise at home. Administered Medications: 13:05 Drug: Ketorolac 60 mg Route: IM; Site: left gluteus; jd3 14:00 Follow up: Response: No adverse reaction jd3 13:05 Drug: Flexeril (cyclobenzaprine) 10 mg Route: PO; jd3 14:00 Follow up: Response: No adverse reaction jd3 13:05 Drug: Given (HYDROcodone-acetaminophen) 10 mg-325 mg 1 tabs Route: PO; jd3 14:00 Follow up: Response: No adverse reaction; RASS: Alert and Calm (0) jd3 13:05 Drug: Lidoderm Patch 5 % (700 mg/patch) 1 patches Route: Topical; Site: affected area; jd3 14:00 Follow up: Response: No adverse reaction jd3 Disposition: 18:04 Co-signature as Attending Physician, Fish Hester MD. ma2 Disposition Summary: 09/04/21 14:20 Discharge Ordered Location: Home pm1 Problem: new pm1 Symptoms: have improved pm1 Condition: Stable pm1 Diagnosis - Low back pain pm1 Followup: pm1 - With: Emergency Department - When: As needed - Reason: Worsening of condition Followup: pm1 - With: Private Physician - When: 2 - 3 days - Reason: Recheck today's complaints, Continuance of care, Re-evaluation by your physician Discharge Instructions: - Discharge Summary Sheet pm1 - Acute Back Pain, Adult pm1 - Musculoskeletal Pain pm1 Forms: - Medication Reconciliation Form pm1 - Thank You Letter pm1 - Antibiotic Education pm1 - Prescription Opioid Use pm1 - Work release form jd3 Prescriptions: - Lidoderm 5 % Topical adhesive patch,medicated - apply 1 patch by TRANSDERMAL route once daily As needed 12 hours on and 12 pm1 hours off in a 24 hour period; 10 patch; Refills: 0, Product Selection Permitted - Cyclobenzaprine 10 mg Oral Tablet - take 1 tablet by ORAL route every 8 hours As needed; 30 tablet; Refills: 0, pm1 Product Selection Permitted - Diclofenac Sodium 75 mg Oral tablet,delayed release (DR/EC) - take 1 tablet by ORAL route 2 times per day As needed; 30 tablet; Refills: 0, pm1 Product Selection Permitted Signatures: Zachariah Fernandez NP CLIENT SERVICE COORDINATOR pm1 Garrett Martinez RN RN jd3 Fish Hester MD MD ma2 Nadir Moss RN RN as6
[2021-09-04 14:42] VITALS: TEMP 98.2; O2SAT 98
[2021-09-04 14:44] VITALS: BP 150/100
== END 2021-09-04 14:36 | disposition home or self-care (01) ==
LOC: ER 11:42
DX: M54.50 Low back pain, unspecified (principal)
CPT/HCPCS: 96372; 99283; J2001

== ENCOUNTER 2022-01-04 08:45 | Emergency (ER) | payer SELFPAY ==
--- OUTSIDE RECORDS SUMMARY | 2022-01-04 08:49 | XMS REPORT | Continuity of Care Document ---
:1980 Author Organization [facility] t Address [address] [place] [address] Care Team Providers Name Role Phone Pcp, Patient Does Not Have A Primary Care Physician [phone] Doctor Unassigned, [place] Attending Clinician Unavailable Esha Hong Attending Clinician Tia Altamirano MD Attending Clinician Res-Colpo/Leep, [facility] Attending Clinician Unavailable Carloz Pineda MD Attending Clinician CARLOZ PINEDA Attending Clinician Unavailable Sil Meza Attending Clinician SIL SOSA Attending Clinician Unavailable RADHA TAYLOR Attending Clinician Unavailable Zohra Castillo Attending Clinician ZOHRA DEAL Attending Clinician Unavailable Ryan Dick MD Attending Clinician Radha Jara Attending Clinician [phone] KANIKA SYED Attending Clinician Unavailable KANIKA SYED Admitting Clinician Unavailable Payers Payer Name Policy Type Policy Number Effective Date Expiration Date S ource Problems Condition Condition Condition Status Onset Resolution Last Treating Co mments Source Name Details Category Date Date Treatment Clinician Date Papanicola Papanicola Disease Active U nivers ou smear ou smear 2-01 [...] of on on 00:00: g of this [place] 00 note Medical might be Branch different from [...] PCP use of use of insulin insulin CVA CVA Disease Active [facility]cerebral [facility]20 [facility] vascular vascular 00:00: Medica l accident) accident) 00 Cent er Abnormal Abnormal Disease [facility] Chest pain Chest pain Disease [facility] HTN HTN Disease Active [facility] (hypertens (hypertens 7-20 [facility] ion) ion) 00:00: Medical 00 Center HLD HLD Disease Active [facility] (hyperlipi (hyperlipi 7-20 [facility] kes demia) demia) 00:00: Medical 00 Center DM DM Disease Active [facility] (diabetes (diabetes 7-20 [facility] mellitus) mellitus) 00:00: Medi chayito 00 Center Morbid Morbid Disease Active [facility] obesity obesity 7-[facility] Depression Depression Disease [facility] Center Cervical Cervical Disease Active Unive rs high risk high risk 5-30 ity of human human 00:00: [place] papillomav papillomav 00 Me dical irus (HPV) irus (HPV) Br anch DNA test DNA test positive positive Morbid Morbid Disease Active Univers obesity obesity 5-26 ity of 00:00: [place] 00 [facility] Tobacco Tobacco Disease Active Univers use use 5-26 ity of disorder disorder 00:00: [place] 00 [facility] Allergies, Adverse Reactions, Alerts Allergy Allergy Status Severity Reaction(s) Onset Inactive Treating Comm ents Source Name Type Date Date Clinician NO KNOWN Drug Active Univers ALLERGIE Class ity of S [facility] Social History Social Habit Start Date Stop Date Quantity Comments Source History of tobacco Cigarette Smoker University of use [facility] Exposure to Not sure University of SARS-CoV-2 (event) [facility] History SDOH [facility] Alcohol Std Drinks Medica l Center History SDOH [facility] Alcohol Binge Medical [facility] History SDOH [facility] Alcohol Comment Medical C enter Tobacco Comment 2018-09-28 2018-09-28 no attempts to [facility]:00 quite in past Medical [facility] Cigarettes smoked 2018-09-28 2018-09-[address] [facility] current (pack per 00:00:00 00:00:00 [facility] Center day) - Reported Cigarette 2018-09-28 2018-09-[address] [facility] pack-years 00:00:00 00:00:00 [facility] Tobacco use and 2018-09-28 2018-09-[address] [facility] [address] [facility] exposure 00:00:00 00:00:00 [facility] Alcohol intake 2018-09-28 2018-09-[address] [facility] 00:00:00 00:00:00 non-drinker of Medical Ce nter alcohol (finding) History SDOH 2018-09-28 2018-09-[address] [facility] Alcohol Frequency 00:00:00 00:00:00 [facility] Sex Assigned At [address] [address] [facility] 00:00:00 00:00:00 [facility] Smoking Status Start Date Stop Date Source Current every day smoker 2020-06-16 00:00:00 Uni versity of [facility] Medications Ordered Filled Start Stop Current Ordering Indication Dosage Frequency Signature Comments Components Source Medication Medication Date Date Medication? Clinician (SIG) Name Name metformin 2020-03 Yes 500mg Take 500 Uni vers HCl 0-08 mg by ity of (METFORMIN 08:08: mouth. [place] ORAL) 03 Medical Branch metformin 2020-03 Yes 500mg Take [...] mg by ity of tablet 08:00: mouth. [place] [address] Medical Branch metoprolol 2020-03 Yes 100mg Take 100 Un ana succinate 0-08 mg by ity of XL 100 mg 08:00: mouth. [place] 24 hr Medical tablet Branch carisoprodo 2020-03 Yes 350mg Take 350 U nivers L 350 mg 0-08 mg by ity of tablet 08:00: mouth. [place] [address] Medical Branch metoprolol 2020-03 Yes 100mg Take 100 Un ana succinate 0-08 mg by ity of XL 100 mg 08:00: mouth. [place] 24 hr Medical tablet Branch carisoprodo 2020-03 Yes 350mg Take 350 U nivers L 350 mg 0-08 mg by ity of tablet 08:00: mouth. [place] [address] Medical Branch metoprolol 2020-03 Yes 100mg Take 100 Un ana succinate 0-08 mg by ity of XL 100 mg 08:00: mouth. [place] 24 hr Medical tablet Branch carisoprodo 2020-03 Yes 350mg Take 350 U nivers L 350 mg 0-08 mg by ity of tablet 08:00: mouth. [place] 38 Medical Branch metoprolol 2020-03 Yes 100mg Take 100 Un ana succinate 0-08 mg by ity of XL 100 mg 08:00: mouth. [place] 24 hr 38 Medical tablet Branch metoprolol Yes hypertensio 100mg Take [address] (TOPROL-XL) 7-21 n mg by [facility] 100 MG 24 17:40: mouth. Medica l hr tablet 17 [place] carisoprodo Yes 350mg Take [address] [facility] (SOMA) 7-21 mg by [facility] 350 MG 17:40: mouth 3 Medical tablet 17 (three) Center times daily as needed for Muscle spasms. Immunizations Ordered Filled Immunization Date Status Comments [facility] e Immunization Name Name [facility] 2021-04-12 Completed [facility] 00:00:00 [facility] 2021-04-12 Completed [facility] 00:00:00 [facility] HPV9 2021-04-12 Completed [facility] 00:00:00 [facility] 2021-04-12 Completed [facility] 00:00:00 [facility] Influenza Virus 2020-12-17 Completed Universit y of Vaccine Quad IM, 00:00:00 [facility] [place] [facility] dical Preserv and ABX Branch Free 6 MO-64 YRS Influenza Virus 2020-12-17 Completed Universit y of Vaccine Quad IM, 00:00:00 [facility] [place] [facility] dical Preserv and ABX Branch Free 6 MO-64 YRS Influenza Virus 2020-12-17 Completed Universit y of Vaccine Quad IM, 00:00:00 [facility] [place] [facility] dical Preserv and ABX Branch Free 6 MO-64 YRS Influenza Virus 2020-12-17 Completed Universit y of Vaccine Quad IM, 00:00:00 [facility] [place] [facility] dical Preserv and ABX Branch Free 6 MO-64 YRS Influenza Virus 2019-12-15 Completed Universit y of Vaccine Quad .5 mL 00:00:00 [place] [facility] IM 6+ MO Branch Influenza Virus 2019-12-15 Completed Universit y of Vaccine Quad .5 mL 00:00:00 [place] Medical IM 6+ MO Branch Influenza Virus 2019-12-15 Completed Universit y of Vaccine Quad .5 mL 00:00:00 [place] Medical IM 6+ MO Branch Influenza Virus 2019-12-15 Completed Universit y of Vaccine Quad .5 mL 00:00:00 [facility] 6+ MO Branch TDAP 2014-08-04 Completed University 00:00:00 [facility] TDAP 2014-08-04 Completed University 00:00:00 [facility] TDAP 2014-08-04 Completed University 00:00:00 [facility] TDAP 2014-08-04 Completed University 00:00:00 [facility] Vital Signs Vital Name Observation Time Observation Value Comments Source Systolic blood 2021-04-12 14:50:00 136 mm[Hg] Univer sity of pressure [facility] Diastolic blood 2021-04-12 14:50:00 84 mm[Hg] Unive rsity [facility] Heart rate 2021-04-12 14:42:00 99 /min [facility] Body temperature 2021-04-12 14:42:00 36.33 Naheed [facility] Respiratory rate 2021-04-12 14:42:00 19 /min [facility] Body height 2021-04-12 14:42:00 162.6 cm [facility] Body weight 2021-04-12 14:42:00 112.855 kg [facility] BMI 2021-04-12 14:42:00 42.71 kg/m2 [facility] Procedures Procedure Date / Time Performing Clinician Source Performed BCCS-RELATED 2021-05-27 05:01:00 Doctor Unassigned, No Univer [facility] DOCUMENTATION Name [facility] GARDASIL 9 (HPV 9V) 2021-04-12 15:06:22 Tia Altamirano [facility] VACCINE [facility] POCT TEST 2021-04-12 00:00:00 Tia Altamirano [facility] Encounters Start End Encounter Admission Attending Care Care Encounter Source Date/Time Date/Time Type Type Clinicians Facility Department ID 2021-05-27 2021-05-27 Orders Doctor CERVANTES [id number] [id number] Univers 00:00:00 00:00:00 Only Unassigned, ELLEN [id number] ity of [place] [facility] 4.2.7.2.686 Sanjay as [phone] [facility] 009 Branch 2021-05-04 2021-05-04 Case Jeff [facility]ERSIT [id number] Univers 00:00:00 00:00:00 Management Esha Y HEALTH [id number] ity of [place] [id number] [facility] 113 Branch 2021-04-19 2021-04-19 Bro Altamirano [facility] [id number] Univers 00:00:00 00:00:00 [place] Y HEALTH [id number] i ty [id number] [id number] [address] 2021-04-12 2021-04-12 Office Res-Colpo/Kirk, [facility] UNIVERSI T [id number] Univers 08:30:00 10:05:01 Visit Carloz Pineda [facility] [id number] ity of [place] [id number] [address] 2021-04-12 2021-04-12 Outpatient [facility] [id number] Univers 08:30:00 10:05:01 CARLOZ ity [facility] 2021-04-12 2021-04-12 Outpatient [facility] [id number] Univers 08:30:00 10:05:01 CARLOZ ity [facility] 2021-04-12 2021-04-12 Outpatient [facility] [id number] Univers 08:30:00 08:30:00 CARLOZ ity [facility] 2021-04-12 2021-04-12 Orders Doctor HELEN 1.2.840.114 [id number] Univers 00:00:00 00:00:00 Only Unassigned, ELLEN [id number] ity of [place] [facility] 4.2.7.2.686 Sanjay as [id number] [place] [address] Branch 2020-12-30 2020-12-30 [facility] [id number] Univers 00:00:00 00:00:00 Sil Charles NAILER MACHINE [id number] it y of [place] [id number] Sanjay as MATERNAL [id number] [facility] & [address] 2020-12-17 2020-12-17 [facility] [id number] Univers 07:48:42 08:34:13 Visit Sil Soto NAILER MACHINE [id number] it y of [place] [id number] Sanjay as MATERNAL [id number] [facility] & CHILD [address] [place] [address] 2020-12-17 2020-12-17 Outpatient R [facility] [id number] Univers 07:45:00 07:45:00 SIL reddykatya [facility] 2020-12-17 2020-12-17 Orders Doctor CERVANTES 1.2.840.114 [id number] Univers 00:00:00 00:00:00 Only Unassigned, ELLEN [id number] ity of [place] [id number] Sanjay as [id number] [address] 2020-12-16 2020-12-16 Outpatient R KEILA [facility] [id number] Univers 08:45:00 08:45:00 RADHA troy o [facility] 2020-06-16 2020-06-16 Office [facility] 1.2.840.114 [id number] Univers 11:20:13 11:45:38 Visit Zohra Soto NAILER MACHINE [id number] ity of [place] [id number] Sanjay as MATERNAL [id number] [facility] & CHILD [address] [place] [address] 2020-06-16 2020-06-16 Outpatient R TOYIN [facility] [id number] Univers 11:00:00 11:00:00 ZOHRA troy o f [facility] 2020-06-15 2020-06-15 Telephone [facility] [id number] Univers 00:00:00 00:00:00 Zohra Soto NAILER MACHINE [id number] [facility] 4.2.7.2.686 Sanjay as MATERNAL [phone] [facility] ical & CHILD [address] [place] [address] 2020-06-11 2020-06-11 Telephone Toyin [facility] [id number] Univers 00:00:00 00:00:00 Zohra R NAILER MACHINE [id number] [facility] [id number] Sanjay as MATERNAL [phone] [facility] ical & CHILD [address] [place] [address] 2020-06-09 2020-06-09 Orders Doctor HELEN 1.2.840.114 [id number] Univers 00:00:00 00:00:00 Only Unassigned, ELLEN [id number] ity of [place] [facility] 4.2.7.2.686 Sanjay as [id number] [address] 2020-06-01 2020-06-01 Case HALEY Aguilar [id number] Univers 00:00:00 00:00:00 Management Esha Y HEALTH [id number] it[place] [id number] [address] 2020-05-27 2020-05-27 Office Res-Colpo/L UNIVERSIT 1.2.840.114 [id number] 08:47:55 09:27:03 Visit eep, Y HEALTH 350.1.13.10 [facility] CLINICS 4.2.7.2.686 [phone] [facility] 2020-05-27 2020-05-27 Office Res-Colpo/Leep, [facility] UNIVERSI T 1.2.840.114 [id number] Univers 08:47:55 09:27:03 Visit Ryan Dick Y HEALTH [id number] ity [place] [id number] [address] 2020-05-27 2020-05-27 Outpatient R [facility] [id number] Univers 09:00:00 09:00:00 ity of [facility] 2020-05-27 2020-05-27 Orders Doctor HELEN 1.2.840.114 [id number] 00:00:00 00:00:00 Only Unassigned, ELLEN 350.1.13.10 [place] [facility] 4.2.7.2.686 [id number] 2020-05-27 2020-05-27 Orders Doctor HELEN 1.2.840.114 [id number] Univers 00:00:00 00:00:00 Only Unassigned, ELLEN 350.1.13.10 ity of [place] [facility] 4.2.7.2.686 Sanjay as [id number] [address] 2020-04-01 2020-04-01 Outpatient R [facility] [id number] Univers 10:30:00 10:30:00 ity of [facility] 2020-04-01 2020-04-01 Telephone HALEY Aguilar 1.2.840.114 [id number] Univers 00:00:00 00:00:00 [facility] 350.1.13.10 i ty [place] [id number] [address] 2020-04-01 2020-04-01 Letter Jeff [facility] [id number] Univers 00:00:00 00:00:00 (Out) [facility] 350.1.13.10 i ty [place] [id number] [address] 2020-01-08 2020-01-08 Telephone Jeff [facility] 1.2.840.114 [id number] Univers 00:00:00 00:00:00 [facility] 350.1.13.10 i ty of [place] [id number] [address] 2019-12-26 2019-12-26 Outpatient R [facility] [id number] Univers 13:30:00 13:30:00 ity [facility] 2019-12-22 2019-12-22 Telephone [facility] 1.2.840.114 [id number] Univers 00:00:00 00:00:00 Radha C NAILER MACHINE 350.1.13.10 ity of REGIONAL 4.2.7.2.686 Sanjay as MATERNAL [id number] [facility] & CHILD [address] [place] [address] 2019-12-16 2019-12-16 Telephone [facility] 1.2.840.114 [id number] Univers 00:00:00 00:00:00 Radha C NAILER MACHINE 350.1.13.10 ity of REGIONAL 4.2.7.2.686 Sanjay as MATERNAL [id number] [facility] & CHILD [address] [place] [address] 2019-12-16 2019-12-16 Telephone [facility] 1.2.840.114 [id number] Univers 00:00:00 00:00:00 Radha C NAILER MACHINE 350.1.13.10 ity of REGIONAL 4.2.7.2.686 Sanjay as MATERNAL [id number] [address] 2019-12-15 2019-12-15 Office [facility] [id number] [facility] 08:14:37 09:33:14 Visit Radha C NAILER MACHINE 350.1.13.10 ity of REGIONAL 4.2.7.2.686 Sanjay as MATERNAL [id number] [address] 2019-12-15 2019-12-15 Outpatient R [facility] [id number] [facility] 08:15:00 08:15:00 RADHA ity o f [facility] Results Test Description Test Time Test Comments Results Result Comments Source POCT TEST 2021-04-12 15:00:00 Test Item Value Reference Range Interpretation Comme nts POCT PREG (test code = 1605) Negative On board controls acceptable with C Line (test code = 3574) Yes POCT PREG LOT # (test code = 3575) POCT PREG TEST DATE (test code = 3576) [place] [facility], WITHOUT [id number] 09:22:00Reason for exam:->StrokeWhat is the patient's sedation requirement?- >No SedationFINAL REPORT MRA Head CLINICAL HISTORY: Stroke TECHNIQUE: MRA of the head utilizing 3-D nlrs-ax-uprqzu technique, with 3-D reconstructions. COMPARISON: None IMPRESSION: The study is motion, but there is no evidence for a takotna of [place] proximal branch vessel occlusion. Aneurysmscannot be excluded. If clinically warranted, repeat imaging should be performed. MRA Neck CLINICAL HISTORY: Stroke TECHNIQUE: MRA of the neck utilizing 2-D and 3-D eonx-bf-oliyrh technique, with 3-D reconstructions. COMPARISON: None FINDINGS: The carotid arteries in the neck are patent including theirbifurcations. There is antegrade flow in the vertebral arteries in the neck. IMPRESSION: No evidenceof hemodynamically significant stenosis in the cervical carotid or vertebral arteries by NASCET criteria. Signed: Rocco Crystal Verified Date/Time: 09/29/2018 09:22:59 Reading Location: [address] Neuro Reading Room MR, MRA, NECK, WITHOUT IV [id number] 09:22:00FINAL REPORT MRA Head CLINICAL HISTORY: Stroke TECHNIQUE: MRA of the head utilizing 3-D qwtq-wa-xfyyhy technique, with 3-D reconstructions. COMPARISON: None IMPRESSION: The study is motion, but there is no evidence for a takot[place] of [place] proximal branch vessel occlusion. Aneurysmscannot be excluded. If clinically warranted, repeat imaging should be performed. MRA Neck CLINICAL HISTORY: Stroke TECHNIQUE: MRA of the neck utilizing 2-D and 3-D mmuo-xj-htajsi technique, with 3-D reconstructions. COMPARISON: None FINDINGS: The carotid arteries in the neck are patent including theirbifurcations. There is antegrade flow in the vertebral arteries in the neck. IMPRESSION: No evidenceof hemodynamically significant stenosis in the cervical carotid or vertebral arteries by NASCET criteria. Signed: Rocco Crystal Verified Date/Time: 09/29/2018 09:22:59 Reading Location: [address] Neuro Reading Room MR, BRAIN, WITHOUT [id number] 09:05:00FINAL REPORT MRI Brain without contrast Clinical History: Stroke Technique: MRIof the brain utilizing axial T2, FLAIR, GRE, [...] IMPRESSION: No evidence of infarct, hemorrhage, or hydrocephalus.Signed: Rocco Crystal MDReport Verified Date/Time: 09/29/2018 09:05:00 Reading Location: [facility] C013V Neuro Reading Room BASIC METABOLIC [id number] 07:07:00 Test Item Value Reference Range Interpretation [...] NOT APPLICABLE FOR DIALYSIS PATIEN TS. LIPID [id number] 07:07:00 Test Item Value Reference Range Interpretation Comments TRIGLYCERIDES (BEAKER) (test code = 476 mg/dL 540) CHOLESTEROL (BEAKER) (test code = 239 mg/dL 631) HDL CHOLESTEROL (BEAKER) (test code 32 mg/dL = 976) Calculated LDL not valid if triglyceride >400 mg/dLTriglyceride Reference Range: Low Risk <150Borderline 150-199 High Risk 200-499 Very High Risk >=500Cholesterol Reference Range: Low Risk <200 Borderline 200-239 High Risk >240HDL Cholesterol Reference Range: Low Risk >=60 High Risk<40LDL Cholesterol Reference Range: Optimal <100 Near Optimal 100-129 Borderline 130-159 High 160-189 Very High >=190CBC W/PLT COUNT & AUTO DIFFERENTIAL 2018-09-29 05:34:00 Test Item Value Reference Range Interpretation [...] PERCENT (BEAKER) (test code = 2801) TROPONIN [id number] 18:14:00 Test Item Value Reference Range Interpretation [...] acidosis, acute neurological disease, and persistent tachyarrhythmia.POCT-GLUCOSE [id number] 17:19:00 Test Item Value Reference Range Interpretation Comments POC-GLUCOSE METER 193 mg/dL 70-110 H TESTED AT [facility] 6720 ([facility]) (test code = EAMONDAVID Soto [facility] 1538) [address] TSH/FREE T4 IF [id number] 15:44:00 Test Item Value Reference Range Interpretation Comments THYROID STIMULATING HORMONE 0.69 uIU/mL 0.35-4.94 ([facility]) (test code = 772) VITAMIN B12 AND [id number] 15:44:00 Test Item Value Reference Range Interpretation Comments VITAMIN B12 (BEAKER) (test code = 635 pg/mL 213-816 774) FOLATE ([facility]) (test code = 362) 11.7 ng/mL >=7.0 HEMOGLOBIN [id number] 15:37:00 Test Item Value Reference Range Interpretation Comments HEMOGLOBIN A1C (BEAKER) (test code = 11.2 % 4.3-6.1 H 368) SCREEN, [id number] 15:16:00 Test Item Value Reference Range Interpretation Comments TEST URINE (BEAKER) (test Negative code = 583) TROPONIN [id number] 15:14:00 Test Item Value Reference Range Interpretation [...] acute neurological disease, and persistent tachyarrhythmia.HEPATIC FUNCTION [id number] 15:08:00 Test Item Value Reference Range Interpretation [...] (test code = 13 U/L 6-55 347) [id number] 15:01:00 Test Item Value Reference Range Interpretation [...] of thrombosis is within 95-100% range.POCT- GLUCOSE [id number] 11:40:00 Test Item Value Reference Range Interpretation Comments POC-GLUCOSE METER 226 mg/dL 70-110 H TESTED AT [facility] 6720 (LENNY) (test code = NADEEN SHI [place] 1538) [address]
[2022-01-04 09:34] LABS: Absolute Lymphocytes (CBC) 1.8 K/uL (0.7-4.9); Hematocrit 38.6 % (36.0-45.0); Lymphocytes % 33.3 % (15.3-44.8); MCV 77.4 fL (80-100); MPV 8.5 fL (7.6-11.3); RBC Red Blood Cell Count 4.99 M/uL (3.86-4.86)
[2022-01-04 09:56] LABS: Albumin 3.4 g/dL (3.4-5.0); Bilirubin Total 0.7 mg/dL (0.2-1.0); Potassium 3.9 mmol/L (3.5-5.1); Protein, Total 7.7 g/dL (6.4-8.2)
--- NOTE | 2022-01-04 09:58 | RAD REPORT ---
EXAM DESCRIPTION: CTStone Protocol - 01/04/2022 9:42 am CLINICAL HISTORY: unable to urinate, suprapubic pain COMPARISON: No comparisons TECHNIQUE: CT of the abdomen and pelvis was performed. All CT scans are performed using dose optimization technique as appropriate and may include automated exposure control or mA/KV adjustment according to patient size. FINDINGS: Lower chest: No acute abnormality. Question mild circumferential thickened distal esophagu s. Liver: No acute abnormality or suspicious lesions. Biliary: No biliary ductal dilatation. Stomach: No significant focal abnormality. Duodenum: No significant focal abnormality. Pancreas: No significant abnormality. Spleen: No significant abnormality. Adrenal: Probable splenule rather than 12 mm left adrenal nodule. The Hounsfield units are similar to that of the spleen. Kidney/ureter: No hydronephrosis. No renal calculi. Retroperitoneum: No retroperitoneal adenopathy. Vascular: No aneurysm. Bowel: No significant focal abnormality. Peritoneum: Fat containing periumbilical hernias. Bladder: Grossly unremarkable. Reproductive: Calcified uterine fibroids. Bones: No acute fracture. Mild SI joint degenerative changes. Cystic changes at the right pubic symph ysis probably related to underlying degenerative changes. Other: n/a IMPRESSION: No acute intra-abdominal or pelvic finding. No urinary tract calculi identified. A few i ncidental findings as noted above.
[2022-01-04] MEDS ORDERED: NA CHLORIDE 0.9% 1,000 ML ONE (10:28)
[2022-01-04 10:48] LABS: Urine Blood Negative (Negative); Urine Glucose 3+ (Negative); Urine Protein Negative (Negative)
[2022-01-04 11:06] LABS: Urine Mucus Slight /HPF (None Seen); Urine RBC <5 /HPF (None Seen)
--- NOTE | 2022-01-04 11:51 | ER ---
Nurse's Notes [facility] Name: Soco Mcgrath Age: 41 yrs Sex: Female : 1980 Arrival Date: 01/04/2022 Time: 08:49 Bed 13 Private MD: Diagnosis: Hyperglycemia, unspecified;Diarrhea, unspecified Presentation: 01/04 09:05 Chief complaint: Patient states: Unable to urinate x 2-3 days, reports diarrhea, denies jl7 N/V, denies fever. Coronavirus screen: Vaccine status: Patient reports being unvaccinated. At this time, the client does not indicate any symptoms associated with coronavirus-19. Ebola Screen: No symptoms or risks identified at this time. Initial Sepsis Screen: Does the patient meet any 2 criteria? No. Patient's initial sepsis screen is negative. Does the patient have a suspected source of infection? No. Patient's initial sepsis screen is negative. Risk Assessment: Do you want to hurt yourself or someone else? Patient reports no desire to harm self or others. Onset of symptoms was January 01, 2022. 09:05 Method Of Arrival: Ambulatory 7 09:05 Acuity: JESSICA 3 jl7 Triage Assessment: 09:06 General: Appears in no apparent distress. uncomfortable, Behavior is calm, cooperative, jl7 appropriate for age. Pain: Complains of pain in suprapubic area Pain currently is 8 out of 10 on a pain scale. 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 - Social history:: Smoking status: Reported history of juuling and/or vaping. Screenin:05 Abuse screen: Denies threats or abuse. Nutritional screening: No deficits noted. ap3 Tuberculosis screening: No symptoms or risk factors identified. Fall Risk None identified. Assessment: 10:31 General: Appears in no apparent distress. Behavior is calm, cooperative, appropriate ap3 for age. Neuro: Level of Consciousness is awake, alert, obeys commands, Oriented to person, place, time, situation, Gait is steady. Respiratory: Airway is patent Respiratory effort is even, unlabored, Respiratory pattern is regular, symmetrical. Vital Signs: 09:05 BP 141 / 96; Pulse 96; Resp 17; Temp 97.7; Pulse Ox 100% ; Weight 113.4 kg; Height 5 jl7 ft. 4 in. (162.56 cm); Pain 8/10; 09:05 Body Mass Index 42.91 (113.40 kg, 162.56 cm) jl7 ED Course: 08:49 Patient arrived in ED. rg4 08:50 Kelly Khan FNP-C [facility]. kb 08:50 Delbert Bowden DO is Attending Physician. kb 09:06 Triage completed. jl7 09:06 Arm band placed on right wrist. jl7 09:21 Leslie Segura, CATINA is Primary Nurse. ap3 09:24 Inserted saline lock: 20 gauge in right antecubital area, using aseptic technique. db Blood collected. 09:43 CT Stone Protocol In Process Unspecified. EDMS 12:05 No provider procedures requiring assistance completed. IV discontinued, intact, ap3 bleeding controlled, No redness/swelling at site. Pressure dressing applied. 12:06 Patient has correct armband on for positive identification. ap3 Administered Medications: 10:30 Drug: NS 0.9% 1000 ml Route: IV; Rate: 1000 ml; Site: right antecubital; ap3 12:05 Follow up: IV Status: Completed infusion ap3 Medication: 12:05 VIS not applicable for this client. ap3 Outcome: 11:51 Discharge ordered by . kb 12:05 Discharged to home ambulatory. ap3 12:05 Condition: good 12:05 Discharge instructions given to patient, Instructed on discharge instructions, follow up and referral plans. Demonstrated understanding of instructions, follow-up care. 12:06 Patient left the ED. ap3 Signatures: Dispatcher [employer] EDMS Kelly Khan FNP-C FNP-Aurea Damico rg4 Vanesa Morel RN RN jl7 Leslie Segura RN RN ap3 Neelima Chang RN RN db Corrections: (The following items were deleted from the chart) 09:07 09:06 PMHx: Diabetes - IDDM; jl7 jl7
--- NOTE | 2022-01-04 11:51 | EDPHYS ---
Physician Documentation [facility] Name: Soco Mcgrath Age: 41 yrs Sex: Female : 1980 Arrival Date: 01/04/2022 Time: 08:49 Bed 13 Private MD: ED Physician Delbert Bowden HPI: 01/04 11:47 This 41 yrs old Black Female presents to ER via Ambulatory with complaints of Urinary kb Problem. 11:47 The patient presents with urinary symptoms, urinary retention. Onset: The kb symptoms/episode began/occurred 2 day(s) ago. Modifying factors: The symptoms are alleviated by nothing, the symptoms are aggravated by nothing. Associated signs and symptoms: Pertinent positives: diarrhea. Severity of symptoms: At their worst the symptoms were moderate, in the emergency department the symptoms are unchanged. The patient has not experienced similar symptoms in the past. The patient has not recently seen a physician. Pt reports she hasn't been able to urinate in 2-3 days. Reports diarrhea as well. Suprapubic fullness and discomfort. 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 - Social history:: Smoking status: Reported history of juuling and/or vaping. ROS: 11:45 Constitutional: Negative for fever, chills, and weight loss. kb 11:45 Abdomen/GI: Positive for abdominal pain, diarrhea. 11:45 : Positive for unable to urinate. 11:45 All other systems are negative. Exam: 11:46 Constitutional: This is a well developed, well nourished patient who is awake, alert, kb and in no acute distress. Head/Face: Normocephalic, atraumatic. ENT: Moist Mucous membranes Cardiovascular: Regular rate and rhythm with a normal S1 and S2. No gallops, murmurs, or rubs. No pulse deficits. Respiratory: Respirations even and unlabored. No increased work of breathing. Talking in full sentences Back: No spinal tenderness. No costovertebral tenderness. Full range of motion. Skin: Warm, dry with normal turgor. Normal color. MS/ Extremity: Pulses equal, no cyanosis. Neurovascular intact. Full, normal range of motion. Neuro: Awake and alert, GCS 15, oriented to person, place, time, and situation. Moves all extremities. Normal gait. Psych: Awake, alert, with orientation to person, place and time. Behavior, mood, and affect are within normal limits. 11:46 Abdomen/GI: Inspection: abdomen appears normal, Bowel sounds: normal, Palpation: mild abdominal tenderness, in the suprapubic area. Vital Signs: 09:05 BP 141 / 96; Pulse 96; Resp 17; Temp 97.7; Pulse Ox 100% ; Weight 113.4 kg; Height 5 jl7 ft. 4 in. (162.56 cm); Pain 8/10; 09:05 Body Mass Index 42.91 (113.40 kg, 162.56 cm) jl7 MDM: 09:06 Patient medically screened. kb 11:46 Data reviewed: vital signs, nurses notes. Data interpreted: Pulse oximetry: on room air kb is 100 %. Interpretation: normal. Counseling: I had a detailed discussion with the patient and/or guardian regarding: the historical points, exam findings, and any diagnostic results supporting the discharge/admit diagnosis, lab results, radiology results, the need for outpatient follow up, a family practitioner, to return to the emergency department if symptoms worsen or persist or if there are any questions or concerns that arise at home. 01/04 09:10 Order name: CBC with Diff; Complete Time: 09:56 kb 01/04 09:10 Order name: CMP; Complete Time: 09:58 kb 01/04 09:10 Order name: Lipase; Complete Time: 09:58 kb 01/04 09:10 Order name: Urine Microscopic Only; Complete Time: 11:22 kb 01/04 10:48 Order name: Urine Dipstick-Ancillary; Complete Time: 10:56 EDMS 01/04 10:50 Order name: Urine --Ancillary (enter results); Complete Time: 10:56 bd 01/04 09:10 Order name: Bladder Scanner; Complete Time: 09:21 kb 01/04 09:10 Order name: IV Saline Lock; Complete Time: 09:39 kb 01/04 09:10 Order name: Labs collected and sent; Complete Time: 09:39 kb 01/04 09:10 Order name: Urine Dipstick-Ancillary (obtain specimen); Complete Time: 10:53 kb 01/04 09:10 Order name: Urine Test (obtain specimen); Complete Time: 10:53 kb 01/04 09:10 Order name: CT Stone Protocol; Complete Time: 09:59 kb Administered Medications: 10:30 Drug: NS 0.9% 1000 ml Route: IV; Rate: 1000 ml; Site: right antecubital; ap3 12:05 Follow up: IV Status: Completed infusion ap3 Disposition: 21:13 Co-signature as Attending Physician, Delbert ERVIN was immediately available on-site ms3 in the Emergency Department for consultation in the care of the patient.. Disposition Summary: 01/04/22 11:51 Discharge Ordered Location: Home kb Condition: Stable kb Diagnosis - Hyperglycemia, unspecified kb - Diarrhea, unspecified kb Followup: kb - With: Emergency Department - When: As needed - Reason: Worsening of condition Followup: kb - With: Private Physician - When: 2 - 3 days - Reason: Recheck today's complaints, Continuance of care, Re-evaluation by your physician Discharge Instructions: - Discharge Summary Sheet kb - Food Choices to Help Relieve Diarrhea, Adult kb - Diarrhea, Adult, [id number] kb - Hyperglycemia, [id number] kb Forms: - Medication Reconciliation Form kb - Thank You Letter kb - Antibiotic Education kb - Prescription Opioid Use kb Signatures: Dispatcher [employer] EDKelly Adkins, MARCUS-Esha VELAZQUEZ-Vanesa Figueroa RN RN jl7 Leslie Segura RN RN ap3 Delbert Bowden DO DO ms3 Corrections: (The following items were deleted from the chart) 09:07 09:06 PMHx: Diabetes - IDDM; jong jlAbeba
[2022-01-04 12:21] VITALS: BP 141/96; TEMP 97.7; O2SAT 100
== END 2022-01-04 12:06 | disposition home or self-care (01) ==
LOC: ER 08:45
DX: E11.65 Type 2 diabetes mellitus with hyperglycemia (principal); R19.7 Diarrhea, unspecified; I10 Essential (primary) hypertension
CPT/HCPCS: 36415; 74176; 76377; 80053; 81003; 81015; 81025; 83690; 85025; 96360; 96361; 99284; J7030

== ENCOUNTER 2023-07-16 15:25 | Inpatient (IN) | payer OTHER ==
[2023-07-16] MEDS ORDERED: ONDANSETRON 4 MG/2 ML VIAL ONE (16:43)
[2023-07-16] MEDS ORDERED: MORPHINE 4 MG/ML SYR ONE (16:44)
[2023-07-16 17:06] LABS: Absolute Basophils 0.1 K/uL (0-0.5); Absolute Lymphocytes (CBC) 1.1 K/uL (0.7-4.9); Absolute Neutrophil 7.2 K/uL (1.8-8.0); Basophils % 0.7 % (0-1.3); Eosinophils % 0.5 % (0-4.4); Hemoglobin 10.6 g/dL (12.0-15.0); Lymphocytes % 11.8 % (15.3-44.8); MCH 23.1 pg (27.0-35.0); MCV 74.3 fL (80-100); MPV 8.8 fL (7.6-11.3); Monocytes % 10.3 % (3.3-12.3); Neutrophils % 76.7 % (41.7-73.7); Nucleated Red Blood Cells % 0.1 % (0-0); Platelets 286 thou/uL (152-406); RBC Red Blood Cell Count 4.58 M/uL (3.86-4.86); Red Cell Distribution Width 17.7 % (12.1-15.2)
[2023-07-16 17:11] LABS: PTT, Activated Partial Thromb 26.8 SECONDS (24.3-36.9); Protime INR 1.19
[2023-07-16 17:19] LABS: Albumin 2.3 g/dL (3.4-5.0); Albumin/Globulin Ratio 0.4 (1.1-1.8); Anion Gap 15.6 mEq/L (5.0-15.0); Bilirubin Total 0.4 mg/dL (0.2-1.0); Potassium 3.6 mEq/L (3.5-5.1); Protein, Total 8.3 g/dL (6.4-8.2)
[2023-07-16] MEDS ORDERED: INSULIN REGULAR (HUMAN) 100 UNIT/ML ONE (17:42)
[2023-07-16] MEDS ORDERED: NA CHLORIDE 0.9% 1,000 ML ONE (17:43)
--- NOTE | 2023-07-16 18:40 | RAD REPORT ---
EXAM DESCRIPTION: CT - Pelvis W/Cont - 07/16/2023 6:09 pm CLINICAL HISTORY: labial abscess Pain and swelling COMPARISON: No comparisons TECHNIQUE: All CT scans are performed using dose optimization technique as appropriate and may inclu de automated exposure control or mA/KV adjustment according to patient size. FINDINGS: Fibroid uterus noted. No pelvic fluid collection. Soft tissue gas is seen extending from the left inguinal region inferiorly where several enlarged ing uinal lymph nodes are seen. The soft tissue gas extends along the medial thigh inner aspect or signif icant inflammation is seen. IMPRESSION: Significant inflammation and soft tissue gas is seen left inguinal region extending infe riorly to the medial left thigh. This likely represents gas-forming infection. No well-formed abscess evident. Several reactive enlarged lymph nodes are suspected in the left inguinal location.
--- NOTE | 2023-07-16 19:02 | ER ---
Nurse's Notes [facility] Name: Soco Mcgrath Age: 43 yrs Sex: Female : 1980 Arrival Date: 07/16/2023 Time: 15:25 Bed 15 Private MD: Diagnosis: Cellulitis of groin;Type 2 diabetes mellitus with hyperglycemia Presentation: 07/15 15:37 Chief complaint: Patient states: "I have a cyst between my ass and hoohaa". Coronavirus as6 screen: At this time, the client does not indicate any symptoms associated with coronavirus-19. Ebola Screen: No symptoms or risks identified at this time. Initial Sepsis Screen: Does the patient meet any 2 criteria? Does the patient have a suspected source of infection? No. Patient's initial sepsis screen is negative. Risk Assessment: Do you want to hurt yourself or someone else? Patient reports no desire to harm self or others. Onset of symptoms was July 11, 2023. 15:37 Method Of Arrival: Ambulatory as6 15:37 Acuity: JESSICA 3 as6 Historical: - Allergies: 15:39 No Known Allergies; as6 - PMHx: 15:39 Diabetes - NIDDM; Hypertension; uterine cancer; as6 - PSHx: 15:39 section; as6 - Immunization history:: Adult Immunizations up to date. - Infectious Disease History:: Denies. - Social history:: Smoking status: Patient reports the use of cigarette tobacco products, smokes one-half pack cigarettes per day. Screenin:06 [facility] ED Fall Risk Assessment (Adult) History of falling in the last 3 months, kc6 including since admission No falls in past 3 months (0 pts) Confusion or Disorientation No (0 pts) Intoxicated or Sedated No (0 pts) Impaired Gait No (0 pts) Mobility Assist Device Used No (0 pt) Altered Elimination No (0 pt) Score/Fall Risk Level 0 - 2 = Low Risk. Abuse screen: Denies threats or abuse. Denies injuries from another. Nutritional screening: No deficits noted. Tuberculosis screening: No symptoms or risk factors identified. Assessment: 15:45 General: Appears in no apparent distress. uncomfortable, well groomed, well developed, kc6 Behavior is calm, cooperative, appropriate for age, Reports chills for fever for feeling ill for. Pain: Complains of pain in pelvis and groin Pain currently is 10 out of 10 on a pain scale. Neuro: Level of Consciousness is awake, alert, obeys commands, Oriented to person, place, time, situation, Appropriate for age. Cardiovascular: Capillary refill < 3 seconds. Respiratory: Airway is patent Trachea midline Respiratory effort is even, unlabored, Respiratory pattern is regular, symmetrical. GI: No signs and/or symptoms were reported involving the gastrointestinal system. : No signs and/or symptoms were reported regarding the genitourinary system. EENT: No signs and/or symptoms were reported regarding the EENT system. Derm: Skin is intact, is healthy with good turgor, Skin is pink, warm \\T\\ dry. Abscess located on groin is half dollar sized, has purulent drainage, is hot to touch, is red, is raised. Musculoskeletal: No signs and/or symptoms reported regarding the musculoskeletal system. Circulation, motion, and sensation intact. Capillary refill < 3 seconds, Range of motion: intact in all extremities. 16:45 Reassessment: Patient appears in no apparent distress at this time. No changes from kc6 previously documented assessment. Patient and/or family updated on plan of care and expected duration. Pain level reassessed. Patient is alert, oriented x 3, equal unlabored respirations, skin warm/dry/pink. 17:32 Reassessment: Patient appears in no apparent distress at this time. No changes from kc6 previously documented assessment. Patient and/or family updated on plan of care and expected duration. Pain level reassessed. Patient is alert, oriented x 3, equal unlabored respirations, skin warm/dry/pink. 18:23 Reassessment: Patient appears in no apparent distress at this time. No changes from kc6 previously documented assessment. Patient and/or family updated on plan of care and expected duration. Pain level reassessed. Patient is alert, oriented x 3, equal unlabored respirations, skin warm/dry/pink. 19:00 General: Appears in no apparent distress. comfortable, Behavior is calm, cooperative, jw7 appropriate for age. Pain: Complains of pain in groin Pain does not radiate. Pain currently is 4 out of 10 on a pain scale. Quality of pain is described as stinging, Pain began gradually, Is continuous. Neuro: Level of Consciousness is awake, alert, obeys commands, Oriented to person, place, time, situation. 19:00 Cardiovascular: Capillary refill < 3 seconds Clubbing of nail beds is absent JVD is jw7 absent Patient's skin is warm and dry. Respiratory: Airway is patent Trachea midline Respiratory effort is even, unlabored, Respiratory pattern is regular, symmetrical. GI: No deficits noted. No signs and/or symptoms were reported involving the gastrointestinal system. : No deficits noted. No signs and/or symptoms were reported regarding the genitourinary system. EENT: No deficits noted. No signs and/or symptoms were reported regarding the EENT system. Derm: Skin is intact, is healthy with good turgor, Skin is dry, Skin is normal, Skin temperature is warm. Musculoskeletal: Circulation, motion, and sensation intact. Range of motion: intact in all extremities. 20:00 Reassessment: Patient appears in no apparent distress at this time. No changes from jw7 previously documented assessment. Patient and/or family updated on plan of care and expected duration. Pain level reassessed. Patient is alert, oriented x 3, equal unlabored respirations, skin warm/dry/pink. 20:56 Reassessment: Patient appears in no apparent distress at this time. No changes from jw7 previously documented assessment. Patient and/or family updated on plan of care and expected duration. Pain level reassessed. Patient is alert, oriented x 3, equal unlabored respirations, skin warm/dry/pink. Vital Signs: 15:37 BP 151 / 91; Pulse 122; Resp 18 S; Temp 98.4(O); Pulse Ox 98% on R/A; Weight 108.86 kg as6 (R); Height 5 ft. 4 in. (R); Pain 10/10; 17:32 BP 126 / 77; Pulse 117; Resp 20 S; Pulse Ox 100% on R/A; kc6 18:23 BP 128 / 69; Pulse 115; Resp 19 S; Pulse Ox 100% on R/A; kc6 19:00 BP 116 / 77; Pulse 114; Resp 18 S; Pulse Ox 100% on R/A; jw7 20:00 BP 115 / 70; Pulse 116; Resp 18 S; Pulse Ox 100% on R/A; jw7 20:57 BP 128 / 74; Pulse 116; Resp 16 S; Pulse Ox 100% on R/A; jw7 15:37 Body Mass Index 41.20 (108.86 kg, 162.56 cm) as6 15:37 Pain Scale: Adult as6 ED Course: 15:28 Patient arrived in ED. mr 15:29 [facility] sb4 15:29 Erich Matrinez MD is Attending Physician. sb4 15:39 Triage completed. as6 15:39 Arm band placed on. as6 15:44 Jacquelin Yan, CATINA is Primary Nurse. kc6 16:07 Patient has correct armband on for positive identification. Bed in low position. Call kc6 light in reach. Side rails up X2. Client placed on continuous cardiac and pulse oximetry monitoring. NIBP monitoring applied. 16:41 Inserted saline lock: 22 gauge in right antecubital area, using aseptic technique. kc6 Blood collected. 18:11 CT Pelvis w cont In Process Unspecified. EDMS 19:00 Benigno De La Torre MD is Hospitalizing Provider. sb4 19:06 Report given to Fely Dill RN. Warm blanket given. Pillow given. kc6 19:15 Provided Education on: Need for Surgery for abscess. jw7 20:53 No provider procedures requiring assistance completed. Patient admitted, IV remains in jw7 place. Administered Medications: 16:49 Drug: morphine IVP or IV 4 mg IVP once over 4 mins Route: IVP; Infused Over: 4 mins; kc6 Site: right antecubital; 17:53 Follow up: Response: No adverse reaction; Pain is decreased; RASS: Alert and Calm (0) kc6 16:49 Drug: Ondansetron IVP 4 mg IVP once; over 2 minutes Route: IVP; Site: right antecubital;kc6 17:53 Follow up: Response: No adverse reaction kc6 17:52 Drug: NS 0.9% IV 1000 ml IV at 1 bolus Per protocol; 1000 mL bolus Route: IV; Rate: 1 kc6 bolus; Site: right antecubital; 20:55 Follow up: Response: No adverse reaction; IV Status: Completed infusion; IV Intake: jw7 1000ml 17:53 Drug: Insulin Regular Human IVP 5 units IVP once {Co-Signature: as6 (Nadir Moss RN).} Route: IVP; Site: right antecubital; 19:35 Follow up: Response: No adverse reaction jw7 19:35 Drug: Piperacillin-Tazobactam IVPB 3.375 grams IVPB once over 60 mins; (mix in NS 100 jw7 mL) Route: IVPB; Infused Over: 60 mins; Site: right antecubital; 20:55 Follow up: Response: No adverse reaction; IV Status: Completed infusion; IV Intake: jw7 100ml Medication: 20:54 VIS not applicable for this client. jw7 Intake: 20:55 IV: 100ml; Total: 100ml. jw7 20:55 IV: 1000ml; Total: 1100ml. jw7 Outcome: 19:00 Decision to Hospitalize by Provider. sb4 20:53 Admitted to OR accompanied by tech, via wheelchair, jw7 20:53 Condition: stable 20:53 Instructed on the need for admit, Demonstrated understanding of instructions, 20:57 Patient left the ED. jw7 Signatures: Dispatcher [employer] EDKS Estela Nichols, Reg Reg mr Nadir Moss, RN RN as6 Fely Dill RN RN jw7 Jacquelin Yan RN RN kc6 Jessica Reeder, PA-Esha PA-C sb4 Nadir Moss RN as6
--- NOTE | 2023-07-16 19:02 | EDPHYS ---
Physician Documentation [facility] Name: Soco Mcgrath Age: 43 yrs Sex: Female : 1980 Arrival Date: 07/16/2023 Time: 15:25 Bed 15 Private MD: ED Physician Erich Martinez HPI: 07/15 16:27 This 43 yrs old Black Female presents to ER via Ambulatory with complaints of Abscess. sb4 16:27 The patient presents with an abscess of the groin. Description: draining, erythematous, sb4 swollen, tense, warm. Onset: The symptoms/episode began/occurred 1 week(s) ago. Possible cause(s): unknown. Associated signs and symptoms: Pertinent positives: discharge, drainage, erythema, fever, swelling. The patient has experienced similar episodes in the past, a few times, today's symptoms are similar. The patient has not recently seen a physician. Historical: - Allergies: 15:39 No Known Allergies; as6 - PMHx: 15:39 Diabetes - NIDDM; Hypertension; uterine cancer; as6 - PSHx: 15:39 section; as6 - Immunization history:: Adult Immunizations up to date. - Infectious Disease History:: Denies. - Social history:: Smoking status: Patient reports the use of cigarette tobacco products, smokes one-half pack cigarettes per day. ROS: 16:27 Cardiovascular: Negative for chest pain, palpitations, and edema, sb4 16:27 Constitutional: Positive for chills, fever, 16:27 Skin: Positive for abscess, of the groin, 16:27 All other systems are negative, Exam: 16:27 Head/Face: Normocephalic, atraumatic. Eyes: Extra-ocular motions intact. Periorbital sb4 areas with no swelling, redness, or edema. ENT: Mucous membranes moist. 16:27 Respiratory: Lungs have equal breath sounds bilaterally, clear to auscultation and percussion. No rales, rhonchi or wheezes noted. No increased work of breathing, no retractions or nasal flaring. Abdomen/GI: Soft, non-tender, no distension. Skin: Warm, dry with normal turgor. Normal color with no rashes, no lesions, and no evidence of cellulitis. MS/ Extremity: Pulses equal, no cyanosis. Neurovascular intact. Full, normal range of motion. 16:27 Constitutional: The patient appears in no acute distress, alert, awake, obese, 16:27 Cardiovascular: Rate: tachycardic, Rhythm: regular, 16:27 : Pelvic Exam: redness and swelling in labial folds, significant erythema and swelling in left inner thigh with warmth and fluctuance, Vital Signs: 15:37 BP 151 / 91; Pulse 122; Resp 18 S; Temp 98.4(O); Pulse Ox 98% on R/A; Weight 108.86 kg as6 (R); Height 5 ft. 4 in. (R); Pain 10/10; 17:32 BP 126 / 77; Pulse 117; Resp 20 S; Pulse Ox 100% on R/A; kc6 18:23 BP 128 / 69; Pulse 115; Resp 19 S; Pulse Ox 100% on R/A; kc6 19:00 BP 116 / 77; Pulse 114; Resp 18 S; Pulse Ox 100% on R/A; jw7 20:00 BP 115 / 70; Pulse 116; Resp 18 S; Pulse Ox 100% on R/A; jw7 20:57 BP 128 / 74; Pulse 116; Resp 16 S; Pulse Ox 100% on R/A; jw7 15:37 Body Mass Index 41.20 (108.86 kg, 162.56 cm) as6 15:37 Pain Scale: Adult as6 MDM: 15:42 Patient medically screened. sb4 18:59 Data reviewed: vital signs, nurses notes, lab test result(s), radiologic studies, and sb4 as a result, I will admit patient. Consideration of Admission/Observation Patient was admitted/placed on observation. Management of patient was discussed with the following: Land Management Supervisor: Dr. De La Torre, will take patient to OR. Care significantly affected by the following chronic conditions: Diabetes, Hypertension. Counseling: I had a detailed discussion with the patient and/or guardian regarding the historical points, exam findings, and any diagnostic results supporting the discharge/admit diagnosis, lab results, radiology results, the need for further work-up and treatment in the hospital. 07/15 16:08 Order name: Blood Culture Adult (2) sb4 07/15 16:08 Order name: CBC with Diff; Complete Time: 17:11 sb4 05/06 16:08 Order name: CMP; Complete Time: 17:20 sb4 07/15 16:08 Order name: Lactate w/ 2H reflex if indic.; Complete Time: 17:06 sb4 07/15 16:08 Order name: Protime (+inr); Complete Time: 17:11 sb4 07/15 16:08 Order name: Ptt, Activated; Complete Time: 17:11 sb4 07/15 16:08 Order name: Test, Serum sb4 07/15 16:08 Order name: UAM sb4 07/15 16:08 Order name: CT Pelvis w cont; Complete Time: 18:44 sb4 07/15 16:08 Order name: EKG; Complete Time: 16:09 sb4 07/15 16:08 Order name: Accucheck; Complete Time: 16:41 sb4 07/15 16:08 Order name: Cardiac monitoring; Complete Time: 16:41 sb4 07/15 16:08 Order name: EKG - Nurse/Tech; Complete Time: 16:41 sb4 07/15 16:08 Order name: IV Saline Lock - Large Bore; Complete Time: 16:41 sb4 07/15 16:08 Order name: Labs collected and sent; Complete Time: 16:41 sb4 07/15 16:08 Order name: O2 Per Protocol; Complete Time: 16:09 sb4 07/15 16:08 Order name: O2 Sat Monitoring; Complete Time: 16:09 sb4 07/15 16:08 Order name: Vital Signs; Complete Time: 16:09 sb4 07/15 18:58 Order name: NPO; Complete Time: 19:04 sb4 EC:45 Rate is 124 beats/min. Rhythm is regular, A fib. NV interval is normal at 112 msec. QRS sb4 interval is normal at 74 msec. QT interval is normal. No Q waves. T waves are Normal. No ST changes noted. Clinical impression: Sinus tachycardia. Interpreted by me. Reviewed by me. Administered Medications: 16:49 Drug: morphine IVP or IV 4 mg IVP once over 4 mins Route: IVP; Infused Over: 4 mins; kc6 Site: right antecubital; 17:53 Follow up: Response: No adverse reaction; Pain is decreased; RASS: Alert and Calm (0) [facility] 16:49 Drug: Ondansetron IVP 4 mg IVP once; over 2 minutes Route: IVP; Site: right antecubital;kc6 17:53 Follow up: Response: No adverse reaction kc6 17:52 Drug: NS 0.9% IV 1000 ml IV at 1 bolus Per protocol; 1000 mL bolus Route: IV; Rate: 1 kc6 bolus; Site: right antecubital; 20:55 Follow up: Response: No adverse reaction; IV Status: Completed infusion; IV Intake: jw7 1000ml 17:53 Drug: Insulin Regular Human IVP 5 units IVP once {Co-Signature: [email or web address] (Nadir Moss6 RN).} Route: IVP; Site: right antecubital; 19:35 Follow up: Response: No adverse reaction jw7 19:35 Drug: Piperacillin-Tazobactam IVPB 3.375 grams IVPB once over 60 mins; (mix in NS 100 jw7 mL) Route: IVPB; Infused Over: 60 mins; Site: right antecubital; 20:55 Follow up: Response: No adverse reaction; IV Status: Completed infusion; IV Intake: jw7 100ml Disposition Summary: 07/16/23 19:00 Hospitalization Ordered Notes: Hospitalization Status: Inpatient Admission sb4 Provider: Benigno De La Torre Location: Telemetry/[facility] (Inpatient) sb4 Condition: Serious sb4 Problem: new sb4 Symptoms: are unchanged sb4 Bed/Room Type: Standard sb4 Room Assignment: sb4 Diagnosis - Cellulitis of groin sb4 - Type 2 diabetes mellitus with hyperglycemia sb4 Forms: - Medication Reconciliation Form sb4 - SBAR form sb4 - Leadership Thank You Letter sb4 Addendum: 07/20/2023 13:43 I was immediately available for consultation during this patient's visit. I did not e c2 personally see the patient or discuss the patient with the MARSHALL. . Signatures: Dispatcher [employer] Nadir Forrest RN RN as6 Fely Dill RN RN jw7 Jacquelin Yan RN RN kc6 Jessica Reeder PA-C PAJason sb4 Erich Martinez MD MD ec2 Nadir Moss RN as6 Corrections: (The following items were deleted from the chart) 07/15 18:56 16:27 : Pelvic Exam: External exam: Bartholin's cyst present, erythema is noted, sb4 sb4
[2023-07-16] MEDS ORDERED: NA CHLORIDE 0.9% 100 ML ONE (19:18)
[2023-07-16] MEDS ORDERED: PIPERACIL/TAZO 3.375 GM VIAL IV ONE (19:19)
[2023-07-16] MEDS: NA CHLORIDE 0.9% 1,000 ML ONE (20:55)
[2023-07-16] MEDS: SUCCINYLCHOLINE 20 MG/ML (10 ML) IV ONE (21:05)
[2023-07-16] MEDS ORDERED: FENTANYL CITR 100 MCG/2 ML ONE ×2 (21:07→21:50)
[2023-07-16] MEDS ORDERED: propofoL 200 MG/20 ML VIAL IV ONE (21:07)
--- NOTE | 2023-07-16 21:19 | P.HP ---
Date of Service: 07/16/23 PC: This 43-year-old female presented to the emergency room with pain and discomfort as well as an odor coming from her left groin. HPC: Over the last 6 days, patient has been in not feeling well. Has noticed pain and swelling in her left groin. Finally could no longer stand and came to the emergency room for evaluation and treatment. PSHx: Previous I&D's of various abscesses PMHx: Diabetes, hypertension Social Hx: Denies any allergies Sys R: No cough, wheeze, shortness of breath. No chest pain or palpitations. Just has not felt well. O/E: Awake alert vital signs are stable HEENT: Not jaundiced Chest: Chest movement equal bilaterally Abd: Soft [place]: Redness and swelling in the left groin area extending down into the perineal area Data: White cell count normal, CT scan shows extensive inflammation in the left groin perineal area with gas seen in the subcutaneous tissue Impression: Left groin/perineal abscess with possible fasciitis Plan: I will take to the operating room for incision, drainage, and wide debridement of this area of abscess in the patient's left groin. The risks of this procedure were discussed with the patient. The possibility of bleeding, infection, injury to blood vessels and surrounding structures were explained. The possible the fact that the patient will have to have an open wound for quite a while until it heals up was outlined. The need for further surgeries and procedures including tomorrow for possible second look operation were explained. She understands and wants us to proceed. We will also need to get the patient checked into the medical system, as she has no true healthcare provider at the moment.
--- NOTE | 2023-07-16 22:15 | P.OP ---
Preoperative diagnosis: Complicated abscess of left inguinal/perineal area Postoperative diagnosis: The same with fasciitis Primary procedure: Incision and drainage of complicated abscess Secondary procedure: Sharp debridement Anesthesia: General Estimated blood loss: Less than 20 cc Specimen: None was sent Operative Technique: The patient brought the operating room and placed supine on the table. After the induction of adequate general endotracheal anesthesia, the patient was placed in lithotomy position. The perineal area and lower abdomen was then prepped with a Betadine solution, she was draped in the usual aseptic manner. On inspection of the perineal area we could see on the left inner thigh just at the junction with the perineum there was a small opening measuring approximately quarter of an inch there was draining some foul-smelling dishwater type liquid. General exploration of this with a cutting surgical curette allowed us to pass it upwards all the way to the upper portion of the abdominal wall just medial to the anterior inferior iliac spine. The area inferiorly was now opened up for approximately 3 inches. This allowed us access to the underlying tissue. We could see that the tissue inside was viable however there was just watery purulent drainage that actually has some small bubbles in it. This area was sharply curetted with a cutting surgical curette. The surgical debris did not smell atrocious nor have a lot of pus with it and in fact the fat appeared to be quite viable. This was limited to the area just beneath the superficial fascia. We traced this upwards into the actual groin itself. A counterincision was made this area of about an inch and a half. Once again this area was opened. It was found to have acutely inflamed and edematous fat. This was sharply debrided and broken down of all the little pockets of. Fluid that had accumulated in the subcu tissue. 1/2 inch Brooke drain was now brought from our inferior incision up to the top and tied on itself to keep this area open and draining during the postoperative period. The area the patient was cleaned up. A sterile dressing was applied. She was also given addition with Betadine vaginally as she did have some purulent discharge and had been complaining herself of some odor prior to her procedure. She is also going to be on some antibiotics postoperatively. At the end of the procedure she was in a stable condition was sent to the recovery room. Needle sponge instrument count were correct. 1 large SUKHWINDER drain was placed. No specimens were sent. Cultures both aerobic and anaerobic were taken. Drain(s): SUKHWINDER drain Transferred to: Recovery Room Condition: Good
[2023-07-16] MEDS: KETOROLAC 30 MG/ML INJ ONE (22:29)
[2023-07-16] MEDS ORDERED: ONDANSETRON 4 MG/2 ML VIAL IV PRN ×2 (22:35→23:06)
[2023-07-16] MEDS: VANCOMYCIN 1 GM in NA CHLORIDE 0.9% 250 ML IVPB SCH (23:00)
[2023-07-16] MEDS ORDERED: GLUCAGON 1 MG/VIAL IM PRN (23:06)
[2023-07-16] MEDS ORDERED: D50W 25 GM/50 ML SYRINGE IV PRN (23:06)
[2023-07-16] MEDS ORDERED: HYDRALAZINE HCL 20 MG/ML VIAL IV PRN (23:06)
[2023-07-16] MEDS ORDERED: MORPHINE 2 MG/ML SYR IV PRN (23:06)
--- NOTE | 2023-07-16 23:15 | P.HP ---
Certification for Inpatient Patient admitted to: Inpatient With expected LOS: >2 Midnights Patient will require the following post-hospital care: None Practitioner: I am a practitioner with admitting privileges, knowledge of patient current condition, hospital course, and medical plan of care. Services: Services provided to patient in accordance with Admission requirements found in Title 42 Section 412.3 of the Code of Federal Regulations Patient History Date of Service: 07/17/23 Reason for admission: Left groin abscess History of Present Illness: 43-year-old female with history of hypertension diabetes mellitus, previous uterine cancer history who presented because of foul-smelling odor from her left groin area. She admits to some swelling and pain over the groin/perineal area. She denies any fever or chills. She admitted to increasing weakness and malaise. She admits to some nausea but no vomiting. On arrival in the ED she was noted with stable vitals both tachycardia with heart rate in the 130s. Examination shows left groin abscess. General surgery consult was obtained. Patient was taken to the OR [place] and have incision and drainage of the left groin for ascites with extension into the perineal area. Patient is being transferred to the floor now. She is scheduled for repeat extensive debridement of the area again in the a.m. Allergies No Known Allergies Allergy (Verified 07/16/23 21:31) Home medications list reviewed: Yes - Past Medical/Surgical History Has patient received pneumonia vaccine in the past: No Past Medical History: Patient denies medical history -: Hypertension -: Diabetes mellitus -: History of uterine cancer -: History of skin abscesses -: section - Social History Smoking Status: Current every day smoker Counseled patient to stop smoking for: less than 10 minutes Smoking therapy provided: No Alcohol use: No CD- Drugs: No Caffeine use: No Place of Residence: Home Review of Systems 10-point ROS is otherwise unremarkable Physical Examination - Vital Signs Temperature: 97.5 F Blood Pressure: 103/86 Pulse: 113 Respirations: 18 - Physical Exam General: Alert, Oriented x3, Obese HEENT: Atraumatic, Normocephalic, PERRLA Neck: Supple, 2+ carotid pulse no bruit Respiratory: Clear to auscultation bilaterally, Normal air movement Cardiovascular: No edema, Regular rate/rhythm, Normal S1 S2 Gastrointestinal: Normal bowel sounds, Soft and benign, Non-distended Musculoskeletal: No clubbing, No swelling Integumentary: Other (Groin dressing) Neurological: Normal gait, Normal speech, Sensation intact, Cranial nerves 3-12 intact External genitalia: Other (Abscess and dressing over perineal groin area) - Studies Laboratory Data (last 24 hrs) 07/16/23 07/16/23 07/16/23 16:36 16:36 16:36 WBC 9.40 Hgb 10.6 L Hct 34.0 L Plt Count 286 PT 13.0 H INR 1.19 APTT 26.8 Sodium 130 L Potassium 3.6 BUN 9 Creatinine 0.72 Glucose 251 H Total Bilirubin 0.4 AST 5 L ALT 12 L Alkaline Phosphatase 107 Assessment and Plan - Problems (Diagnosis) (1) Fasciitis Current Visit: Yes Status: Acute - Plan Impression Left groin/perineal fasciitis Hypertension DM Obesity Hyponatremiadue to pseudohyponatremia from hyperglycemia Plan Admitted to inpatient Start empiric antibiotics with Vanco/Zosyn Blood culture x 2 Obtain culture from the wound area Appreciate general surgery evaluation, s/p Debridement today Follow-up plan for debridement again in a.m. Keep n.p.o. again overnight IV hydralazine as needed high blood pressure, unsure of home BP meds Insulin sliding scale with Accu-Cheks, resume metforminpatient taking only at 500 mg daily, obtain hemoglobin A1c Pain regimen Wound care consult Gentle IV fluid lactated [facility] to dose Vanco Full code Discharge Plan: Home - Advance Directives Does patient have a Living Will: No Does patient have a Durable POA for Healthcare: No - Code Status/Comfort Care Code Status Assessed: Yes Code Status: Full Code Physician Review: Patient Assessed, Agree with Above Assessment and Plan Time Spent Managing Pts Care (In Minutes): 55
[2023-07-16] MEDS ORDERED: D10W 125 ML IV PRN (23:16)
[2023-07-16] MEDS ORDERED: ACETAMINOPHEN 325 MG TABLET PO PRN (23:17)
[2023-07-16] MEDS: VANCOMYCIN 2 GM in NA CHLORIDE 0.9% 500 ML IVPB SCH (23:30)
[2023-07-17] MEDS: MORPHINE 2 MG/ML SYR IV SCH
[2023-07-17] MEDS: VANCOMYCIN 1 GM/VIAL ONE (00:51)
[2023-07-17] MEDS: NA CHLORIDE 0.9% 250 ML ONE (00:52)
[2023-07-17] MEDS: INSULIN REGULAR (HUMAN) 100 UNIT/ML ONE (00:54)
[2023-07-17] MEDS ORDERED: CLINDAMYCIN PHOSPHATE 600 MG in NA CHLORIDE 0.9% 50 ML IV SCH (01:00)
[2023-07-17] MEDS: HEPARIN 5000 UNIT/ML 1 ML VIAL SQ SCH (01:00)
[2023-07-17] MEDS: Ringers Lactate 1,000 ML IV SCH (01:01)
[2023-07-17] MEDS: PIPER TAZO 3.375 GM in NA CHLORIDE 0.9% 100 ML IV SCH (01:09)
[2023-07-17 01:55] VITALS: BMI 41.1
[2023-07-17] MEDS: MORPHINE 4 MG/ML SYR IV PRN (02:05)
[2023-07-17 06:06] LABS: Absolute Eosinophils 0.1 K/uL (0-0.5); Absolute Lymphocytes (CBC) 1.1 K/uL (0.7-4.9); Absolute Monocytes 1.1 K/uL (0.1-1.3); Absolute Neutrophil 6.6 K/uL (1.8-8.0); Anion Gap 12.6 mEq/L (5.0-15.0); Basophils % 0.5 % (0-1.3); Eosinophils % 0.7 % (0-4.4); Hematocrit 27.9 % (36.0-45.0); Hemoglobin 8.8 g/dL (12.0-15.0); Lymphocytes % 12.3 % (15.3-44.8); MCH 23.3 pg (27.0-35.0); MCHC 31.5 g/dL (32.0-36.0); MCV 73.7 fL (80-100); MPV 8.9 fL (7.6-11.3); Monocytes % 12.8 % (3.3-12.3); Neutrophils % 73.7 % (41.7-73.7); Platelets 237 thou/uL (152-406); Potassium 3.6 mEq/L (3.5-5.1); RBC Red Blood Cell Count 3.79 M/uL (3.86-4.86); Red Cell Distribution Width 17.3 % (12.1-15.2)
--- NOTE | 2023-07-17 06:53 | P.PN ---
Date of Service: 07/17/23 Subjective: Feeling better this morning. Area doesn't feel as painful/swollen. +less tender NPO for possible further I&D this morning with Dr. De La Torre no new / worsening issues afebrile ROS: 10 point ROS as noted above, otherwise negative Physical Exam: GEN: Alert, oriented, NAD CV: Regular rate and rhythm, no edema Pulm: Nonlabored respirations on room air, clear bilaterally ABD: Soft, nontender, nondistended Integumentary: Left inguinal region with tenderness, erythema, dressing in place: c/d/i Neuro: Normal speech, normal affect SUKHWINDER drain in place vitals reviewed Problem List: Complicated Left inguinal/perineal abscess with fasciitis, s/p I&D (07/15) IDDM2 Hypertension Hx uterine cancer Complicated Left inguinal/perineal abscess with fasciitis, s/p I&D (07/15) CT pelvis (08/04): significant inflammation and soft tissue gas seen left inguinal region extending inferiorly to medial left thigh. Several reactive enlarged lymph nodes in left inguinal area. General surgery - Dr. De La Torre consulted s/p I&D of complicated Left inguinal/perineal abscess with fasciitis (07/15) NPO for possible repeat I&D this morning, and likely SUKHWINDER drain x1 in place f/u blood and wound cultures continue empiric zosyn / vanc (07/15-) ID consulted PRN analgesics / antiemetics continue IV fluiids IDDM2 accu-checks, SSI previously on metformin a1c 12.1 start insulin here, and will need script on discharge Hypertension confirm home meds, restart as appropriate IV hydralazine for now Code: Full Dispo: Home, ~2-3 days Pending surgical recs / further I&D
[2023-07-17] MEDS: INSULIN REGULAR (HUMAN) 100 UNIT/ML SQ SCH (07:30)
[2023-07-17] MEDS: METFORMIN ER 500 MG TAB PO SCH (08:00)
--- NOTE | 2023-07-17 08:08 | P.CNS ---
Date of Consult: 07/17/23 Reason for Consult: inguinal abscess Chief Complaint: Left groin abscess History of Present Illness: 43yo F with a PMH of diabetes and hypertension who presented to the ED with complaints of left inguinal pain/tenderness/swelling. She was found to have left groin/perineal abscess with fasciitis, underwent debridement by Dr. De La Torre on 07/15. Infectious disease consulted. Allergies No Known Allergies Allergy (Verified 07/16/23 21:31) Home medications list reviewed: Yes Home Medications: Metformin HCl [Glucophage] 500 mg PO BIDWM 07/17/23 - Past Medical/Surgical History -: Hypertension -: Diabetes mellitus -: History of uterine cancer -: History of skin abscesses -: section - Social History Smoking Status: Current every day smoker Alcohol use: No CD- Drugs: No Caffeine use: No Place of Residence: Home Review of Systems 10-point ROS is otherwise unremarkable Integumentary: As per HPI Physical Examination Temp Pulse Resp BP Pulse Ox 97.2 F 103 H 18 120/77 98 07/17/23 04:00 07/17/23 04:00 07/17/23 06:29 07/17/23 04:00 07/17/23 04:00 General: Alert, In no apparent distress, Oriented x3 HEENT: Atraumatic, Normocephalic Cardiovascular: Regular rate/rhythm Gastrointestinal: Normal bowel sounds, Soft and benign Integumentary: Tenderness/swelling (left groin), Other (SUKHWINDER drain x1) Laboratory, microbiology and imaging data reviewed Conclusions/Impression: Problem List left inguinal/perineal abscess with faciitis, Diabetes Mellitus type II Hypertension left inguinal/perineal abscess with faciitis, - s/p debridement by Dr. De La Torre on 07/15 - On empiric zosyn and vancomycin (07/15-) - afebrile. - blood cultures 07/15: pending - Wound culture 07/15: pending Recommendations - Continue current antibiotics for now. Will follow up with culture results and adjust antibiotics as appropriate. - depending on culture results, may consider Augmentin PO, OR Cipro + flagyl if susceptible - Recommend antibiotic therapy for 10-14 days. - Wound/surgical site care per Dr. De La Torre - Monitor for worsening s/s of infection along with CBC and fever trends - Continue supportive care - pain management per primary team - strict blood glucose control. Goal <180. Case discussed with Donnie Mallory
[2023-07-17] MEDS: FAMOTIDINE 20 MG TAB PO SCH (08:10)
[2023-07-17] MEDS: NA CHLORIDE 0.9% 1,000 ML ONE (11:09)
[2023-07-17] MEDS: SUCCINYLCHOLINE 20 MG/ML (10 ML) IV ONE (11:59)
[2023-07-17] MEDS: VANCOMYCIN 2 GM in NA CHLORIDE 0.9% 500 ML IVPB SCH ×2 (12:00→16:21)
[2023-07-17] MEDS ORDERED: propofoL 200 MG/20 ML VIAL IV ONE (12:03)
[2023-07-17] MEDS ORDERED: FENTANYL CITR 100 MCG/2 ML ONE ×2 (12:04→12:41)
[2023-07-17] MEDS ORDERED: MIDAZOLAM HCL 2 MG/2 ML INJ ONE (12:04)
--- NOTE | 2023-07-17 13:18 | P.OP ---
Preoperative diagnosis: Complicated surgical wound left groin and perineum Postoperative diagnosis: The same Primary procedure: Incision and drainage of complicated surgical wound Secondary procedure: Sharp debridement Other procedure(s): Pulse lavage Anesthesia: General Estimated blood loss: 20 cc Specimen: Necrotic debris was not sent Operative Technique: The patient brought the operating room and placed supine on the table. After the induction of adequate general anesthesia, the patient was converted to the lithotomy position. The area of the left groin was then prepped with a Betadine solution and she was draped in the usual aseptic manner Inspection of the left groin, her previous surgical site, show there is still some swelling and fluctuance in that area. We had made an initial 3 inch incision at the top and 1 at about 4 inches at the bottom however I do not feel we had established adequate drainage. Hence by placing a Vive Nano suction catheter into the wound to bring out of the top we able to cut down on this with a 10 blade. On opening up the tissue we could see that there was still some necrotic debris lining that channel. This was sharply debrided debrided using a #10 surgical scalpel. The tissue was cut back to clean viable tissue. On the inferior portion we are all the way down to the fascia. 1 can see consistent w ith a fasciitis that was glistening membranous type changes on top of the fascia itself. This was shaved off with a 10 blade. The whole area was then pulse lavaged with iodoform solution for about 600 cc. After this we went back and trimmed up the areas of hanging fat and other obviously nonviable tissue. We went over the whole wound with electrocautery to ensure adequate hemostasis. At this point the wound was now packed open with iodoform gauze. We will place dressings on this, and will probably bring her back to the operating room for further exploration and possible initiating closure on or Sunday. At the end the procedure she was in a stable condition was sent to the recovery room. Needle sponge instrument count were correct. Complications: None Drain(s): SUKHWINDER drain Transferred to: Recovery Room Condition: Good
[2023-07-17] MEDS: KETOROLAC 30 MG/ML INJ ONE (13:36)
--- NOTE | 2023-07-17 14:01 | EKG ---
Test Date: 2023-07-16 Test Time: 16:26:07 Investment Accounting Clerk: CARMEN MEASUREMENT RESULTS: Intervals: Rate: 124 UT: 112 QRSD: 74 QT: 414 QTc: 594 [place]: P: UT: 112 QRS: 67 T: 61 INTERPRETIVE STATEMENTS: Sinus tachycardia Cannot rule out Anterior infarct, age undetermined Abnormal ECG Compared to ECG 09/28/2018 06:34:37 Myocardial infarct finding now present Sinus rhythm no longer present T-wave abnormality no longer present Possible ischemia no longer present Electronically Signed On 07-17-23 13:58:32 CDT by Binu Moore
[2023-07-17] MEDS: INSULIN GLARGINE 100 UNIT/ML SQ ONE ×2 (16:22→20:13)
[2023-07-17] MEDS: NYSTATIN 100MU/GM CREAM 15GM TOP SCH (20:13)
[2023-07-18] MEDS: Oxycodone HCl/Acetaminophen 5/325 MG TAB PO PRN (04:48)
[2023-07-18 07:25] LABS: Absolute Basophils 0.1 K/uL (0-0.5); Absolute Eosinophils 0.1 K/uL (0-0.5); Absolute Lymphocytes (CBC) 1.2 K/uL (0.7-4.9); Absolute Monocytes 0.8 K/uL (0.1-1.3); Absolute Neutrophil 5.2 K/uL (1.8-8.0); Basophils % 1.9 % (0-1.3); Eosinophils % 1.5 % (0-4.4); Hematocrit 27.4 % (36.0-45.0); Hemoglobin 8.6 g/dL (12.0-15.0); Lymphocytes % 15.6 % (15.3-44.8); MCH 23.2 pg (27.0-35.0); MCHC 31.3 g/dL (32.0-36.0); MCV 74.1 fL (80-100); MPV 8.2 fL (7.6-11.3); Monocytes % 11.2 % (3.3-12.3); Neutrophils % 69.8 % (41.7-73.7); Nucleated Red Blood Cells % 0.2 % (0-0); Platelets 235 thou/uL (152-406); Red Cell Distribution Width 17.6 % (12.1-15.2)
[2023-07-18 07:40] LABS: Anion Gap 8.7 mEq/L (5.0-15.0); Magnesium 1.7 mg/dL (1.6-2.4); Potassium 3.7 mEq/L (3.5-5.1)
--- NOTE | 2023-07-18 08:12 | P.PN ---
Date of Service: 07/18/23 Subjective: Feeling better today denies any new / worsening problems inguinal pain more tolerable today had another I&D yesterday. tentative plan for closure tomorrow afebrile ROS: 10 point ROS as noted above, otherwise negative Physical Exam: GEN: Alert, oriented, NAD CV: Regular rate and rhythm, no edema Pulm: Nonlabored respirations on room air, clear bilaterally ABD: Soft, nontender, nondistended Integumentary: Left inguinal region with tenderness, erythema; wound now packed open with iodoform gauze Neuro: Normal speech, normal affect SUKHWINDER drain in place Torrez in place vitals reviewed Problem List: Complicated Left inguinal/perineal abscess with fasciitis, s/p I&D x2 (07/15 and 07/16) IDDM2 Hypertension Hx uterine cancer anemia, chronic; secondary to heavy menses Complicated Left inguinal/perineal abscess with fasciitis, s/p I&D x2 (07/15 and 07/16) CT pelvis (08/04): significant inflammation and soft tissue gas seen left inguinal region extending inferiorly to medial left thigh. Several reactive enlarged lymph nodes in left inguinal area. General surgery - Dr. De La Torre consulted s/p I&D x2 of complicated Left inguinal/perineal abscess with fasciitis (07/15 and 07/16) will need to go back to OR for further I&D/closure likely tomorrow vs Sunday SUKHWINDER drain x1 in place f/u blood and wound cultures continue empiric zosyn / vanc (07/15-) ID consulted PRN analgesics / antiemetics DC IV fluids today IDDM2 accu-checks, SSI previously on metformin a1c 12.1 started semglee glc still high 200s/300s now that she is eating increase to 30u will need insulin script on discharge Anemia, unknown etiology Patient reports long heavy menstrual cycles. Denies any other bleeding. +has craving for ice iron studies pending; suspect some component of iron deficiency anemia Hypertension confirm home meds, restart as appropriate IV hydralazine for now VTE: heparin sq Code: Full Dispo: Home, ~2 days Pending surgery/closure tentatively tomorrow vs Sunday
[2023-07-18] MEDS: INSULIN GLARGINE 100 UNIT/ML SQ SCH (08:28)
--- NOTE | 2023-07-18 08:48 | P.PN ---
INFECTIOUS DISEASE PROGRESS NOTE Subjective: in no apparent distress. no acute events reported overnight. s/p washout 07/16. Pending closure expected 07/18 + incision site pain 10-point ROS is otherwise unremarkable Physical Examination Temp Pulse Resp BP Pulse Ox 97.5 F 97 H 16 132/80 99 07/18/23 08:00 07/18/23 08:00 07/18/23 08:35 07/18/23 08:00 07/18/23 08:35 General: Alert, In no apparent distress, Oriented x3 HEENT: Atraumatic, Normocephalic Resp: Clear to auscultation bilaterally. Nonlabored respirations on room air. Cardiovascular: Regular rate/rhythm. No edema. Gastrointestinal: Normal bowel sounds, Soft and benign. Nondistended. Nontender. Integumentary: Tenderness left groin, Dressing clean dry and intact. --Laboratory, microbiology and imaging data reviewed Assessment and Plan Problem List left inguinal/perineal abscess with faciitis, Diabetes Mellitus type II Hypertension left inguinal/perineal abscess with fasciitis, - s/p debridement by Dr. De La Torre on 07/15 with SUKHWINDER drain placement - s/p washout 07/16 - On empiric zosyn and vancomycin (07/15-) - afebrile. - blood cultures 07/15: no growth to date - Wound culture 07/15: pending Recommendations - Continue current antibiotics for now. Will follow up with culture results and adjust antibiotics as appropriate. - depending on culture results, may consider Augmentin PO upon discharge to complete remainder of antibiotic course. - Recommend antibiotic therapy for 10-14 days. - Wound/surgical site care per Dr. De La Torre - Pending closure 07/18 or 07/19 - Monitor for worsening s/s of infection along with CBC and fever trends - Continue supportive care - pain management per primary team - strict blood glucose control. Goal <180. Case discussed with Donnie Mallory
[2023-07-18 09:39] LABS: Anisocytosis SLIGHT; Blood Morphology Comment NOTED (NOT SEEN); Differential Total Cells Count 100; Lymphocytes 26 % (15-42); Microcytosis SLIGHT; Monocytes 12 % (0-10); Platelet Estimate ADEQ; Segmented Neutrophils 62 % (40-80)
[2023-07-18] MEDS: INSULIN GLARGINE 100 UNIT/ML SQ ONE (16:16)
[2023-07-18] MEDS: VANCOMYCIN 2 GM in NA CHLORIDE 0.9% 500 ML IVPB SCH (17:52)
[2023-07-19 03:46] LABS: Absolute Basophils 0.1 K/uL (0-0.5); Absolute Eosinophils 0.1 K/uL (0-0.5); Absolute Lymphocytes (CBC) 1.6 K/uL (0.7-4.9); Absolute Neutrophil 5.6 K/uL (1.8-8.0); Basophils % 1.1 % (0-1.3); Eosinophils % 1.5 % (0-4.4); Hematocrit 26.7 % (36.0-45.0); Hemoglobin 8.1 g/dL (12.0-15.0); Lymphocytes % 18.7 % (15.3-44.8); MCH 22.7 pg (27.0-35.0); MCHC 30.3 g/dL (32.0-36.0); MCV 74.8 fL (80-100); MPV 9.5 fL (7.6-11.3); Monocytes % 11.9 % (3.3-12.3); Neutrophils % 66.8 % (41.7-73.7); Nucleated Red Blood Cells % 0.1 % (0-0); Platelets 249 thou/uL (152-406); RBC Red Blood Cell Count 3.58 M/uL (3.86-4.86); Red Cell Distribution Width 17.3 % (12.1-15.2)
[2023-07-19 03:59] LABS: Anion Gap 8.5 mEq/L (5.0-15.0); Magnesium 1.7 mg/dL (1.6-2.4); Potassium 3.5 mEq/L (3.5-5.1)
[2023-07-19] MEDS: INSULIN GLARGINE 100 UNIT/ML SQ SCH (08:31)
--- NOTE | 2023-07-19 08:59 | P.PN ---
Date of Service: 07/19/23 Subjective: Feeling better today tentative plan for surgery/closure today with Dr. De La Torre denies any new worsening problems afebrile ROS: 10 point ROS as noted above, otherwise negative Physical Exam: GEN: Alert, oriented, NAD CV: Regular rate and rhythm, no edema Pulm: Nonlabored respirations on room air, clear bilaterally ABD: Soft, nontender, nondistended Integumentary: Left inguinal region with tenderness, erythema; wound now packed open with iodoform gauze Neuro: Normal speech, normal affect SUKHWINDER drain in place Torrez in place vitals reviewed Problem List: Complicated Left inguinal/perineal abscess with fasciitis, s/p I&D x2 (07/15 and 07/16) IDDM2 Hypertension Hx uterine cancer chronic anemia; secondary to heavy menses / iron deficiency anemia Complicated Left inguinal/perineal abscess with fasciitis, s/p I&D x2 (07/15 and 07/16) CT pelvis (08/04): significant inflammation and soft tissue gas seen left inguinal region extending inferiorly to medial left thigh. Several reactive enlarged lymph nodes in left inguinal area. Blood cx (07/15): NGTD wound cx (07/15): prelim 1+ GNR General surgery - Dr. De La Torre consulted s/p I&D x2 of complicated Left inguinal/perineal abscess with fasciitis (07/15 and 07/16) tentative plan for surgery/closure today with Dr. De La Torre SUKHWINDER drain x1 in place continue empiric zosyn / vanc (07/15-) ID consulted PRN analgesics / antiemetics IDDM2 accu-checks, SSI previously on metformin a1c 12.1 started semglee glc still high 200s/300s now that she is eating increase to 35u will need insulin script on discharge chronic anemia; secondary to heavy menses / iron deficiency anemia Patient reports long heavy menstrual cycles. Denies any other bleeding. +has craving for ice iron studies consistent with iron deficiency anemia (iron 26, tsat%:10.5) would benefit from iron supplementation once acute infxn improves/resolves Hypertension confirm home meds, restart as appropriate IV hydralazine for now VTE: heparin sq Code: Full Dispo: Home, ~2 days Pending surgery/closure tentatively today
--- NOTE | 2023-07-19 09:44 | P.PN ---
Date of Service: 07/19/23 INFECTIOUS DISEASE PROGRESS NOTE Subjective: Improving. No acute events overnight. No new/worsening complaints at this time. Physical Examination Temp Pulse Resp BP Pulse Ox 98 F 101 H 17 161/87 H 99 07/19/23 08:00 07/19/23 08:00 07/19/23 08:00 07/19/23 08:00 07/19/23 08:00 General: Alert, In no apparent distress, Oriented x3 HEENT: Atraumatic, Normocephalic Respiratory: Clear to auscultation bilaterally. Nonlabored respirations on room air. Cardiovascular: Regular rate/rhythm. No edema. Gastrointestinal: Normal bowel sounds, Soft and benign. Nondistended. Nontender. Integumentary: Left inguinal surgical site dressing c/d/i Laboratory, microbiology and imaging data reviewed Assessment and Plan Problem List left inguinal/perineal abscess with faciitis, Diabetes Mellitus type II Hypertension left inguinal/perineal abscess with fasciitis, - s/p debridement by Dr. De La Torre on 07/15 with SUKHWINDER drain placement - s/p washout 07/16 - On empiric zosyn and vancomycin (07/15-) - afebrile. - blood cultures 07/15: no growth to date - Wound culture 07/15: 1+ gram negative rods Recommendations - Pending closure 07/18 or 07/19 - Continue antibiotic therapy for 10-14 days (07/15-07/25). - Follow up with final culture results. Depending on sensitivity, consider switch to Augmentin PO upon discharge to complete remainder of antibiotic cour se. - Wound/surgical site care per Dr. De La Torre - Monitor for worsening s/s of infection along with CBC and fever trends - Continue supportive care - pain management per primary team - strict blood glucose control. Goal <180. Case discussed with Donnie Mallory
[2023-07-19] MEDS: NA CHLORIDE 0.9% 1,000 ML ONE (10:35)
[2023-07-19] MEDS ORDERED: LIDOCAINE 2% MPF 5 ML VIAL ONE (10:39)
[2023-07-19] MEDS ORDERED: FENTANYL CITR 100 MCG/2 ML ONE (10:39)
[2023-07-19] MEDS ORDERED: propofoL 200 MG/20 ML VIAL IV ONE ×2 (10:39→11:51)
[2023-07-19] MEDS ORDERED: MIDAZOLAM HCL 2 MG/2 ML INJ ONE (10:39)
[2023-07-19] MEDS ORDERED: KETOROLAC 30 MG/ML INJ ONE (10:39)
[2023-07-19] MEDS ORDERED: ONDANSETRON 4 MG/2 ML VIAL ONE (10:39)
--- NOTE | 2023-07-19 13:03 | P.OP ---
Preoperative diagnosis: Complicated surgical wound Postoperative diagnosis: The same Primary procedure: Exploration and drainage of complicated surgical wound Secondary procedure: Sharp debridement, pulse lavage Other procedure(s): Closure of wound Anesthesia: General Estimated blood loss: 10 cc Specimen: None were sent Operative Technique: The patient brought the operating room and placed supine on the table. After the induction of adequate general anesthesia, the patient was converted to the lithotomy position. The area of the left groin was then prepped with a Betadine solution and she was draped in the usual aseptic manner The wound was carefully inspected, it was found to be remarkably clean compared to the last time we had been here. There was however 1 were some pocket we were able to place a finger and going for a depth of approximately 6 inches. We obtained just cleared on odiferous white fluid. This area was followed upwards and it actually communicates with the top end of our incision. This area was now pulse lavaged with a copious amount of a saline solution with iodine. The whole wound was treated with this. At this point we were able to then scrub the open wound with a chlorhexidine solution, and again finish washing it out once with the iodoform solution. At this point a Bill-Sandoval drain was placed up into this opening. The tail was brought down through the inferior portion of the wound. The wound was now tacked together with interrupted sutures of nylon. Having established that we were able to going to have affected wound drainage, the skin was then approximated once again with delaney. To reinforce our suture line we also placed Dermabond over the whole wound once we had placed our sutures and delaney. Placed into the Yankauer suction, we could see the wound collapsed down indicating a good seal. When converted to the SUKHWINDER bulb, we also had an air and presumably watertight seal. At this point the instrument count was correct, sterile dressings were applied, the Torrez catheter was discontinued. She was in a stable condition was sent to the recovery room. Needle sponge instrument count were correct. Complications: None Drain(s): SUKHWINDER drain Transferred to: Recovery Room Condition: Good
[2023-07-19 13:21] VITALS: O2SAT 100
[2023-07-20 03:54] LABS: Absolute Eosinophils 0.1 K/uL (0-0.5); Absolute Lymphocytes (CBC) 1.9 K/uL (0.7-4.9); Absolute Monocytes 0.6 K/uL (0.1-1.3); Absolute Neutrophil 5.9 K/uL (1.8-8.0); Basophils % 0.5 % (0-1.3); Eosinophils % 1.5 % (0-4.4); Hematocrit 26.2 % (36.0-45.0); Hemoglobin 8.1 g/dL (12.0-15.0); Lymphocytes % 22.6 % (15.3-44.8); MCH 23.1 pg (27.0-35.0); MCHC 31.1 g/dL (32.0-36.0); MCV 74.2 fL (80-100); MPV 8.8 fL (7.6-11.3); Monocytes % 6.4 % (3.3-12.3); Nucleated Red Blood Cells % 0.1 % (0-0); Platelets 268 thou/uL (152-406); RBC Red Blood Cell Count 3.53 M/uL (3.86-4.86); Red Cell Distribution Width 16.9 % (12.1-15.2)
[2023-07-20 04:12] LABS: Magnesium 1.7 mg/dL (1.6-2.4)
[2023-07-20] MEDS: SOD FERRIC GLUC COMPLX/SUCROSE 125 MG in NA CHLORIDE 0.9% 100 ML IV SCH (09:24)
--- NOTE | 2023-07-20 11:15 | P.PN ---
Date of Service: 07/20/23 Subjective: Feeling better today s/p I&D with closure of wound yesterday eating/ambulating without issues pain improving. Down to ~8 from 10 on pain scale afebrile ROS: 10 point ROS as noted above, otherwise negative Physical Exam: GEN: Alert, oriented, NAD CV: Regular rate and rhythm, no edema Pulm: Nonlabored respirations on room air, clear bilaterally ABD: Soft, nontender, nondistended Integumentary: Left inguinal region with tenderness, erythema; wound now packed open with iodoform gauze Neuro: Normal speech, normal affect SUKHWINDER drain in place Torrez in place vitals reviewed Problem List: Complicated Left inguinal/perineal abscess with fasciitis, s/p I&D x3 (07/15, 07/16, and 07/18 with closure of wound) IDDM2 chronic anemia; secondary to heavy menses / iron deficiency anemia Hypertension Hx uterine cancer Complicated Left inguinal/perineal abscess with fasciitis, s/p I&D x3 (07/15, 07/16, and 07/18 with closure of wound) CT pelvis (08/04): significant inflammation and soft tissue gas seen left inguinal region extending inferiorly to medial left thigh. Several reactive enlarged lymph nodes in left inguinal area. Blood cx (07/15): NGTD wound cx (07/15): Klebsiella Pneumoniae near pansensitive only resistant to ampicillin General surgery - Dr. De La Torre consulted s/p I&D x2 of complicated Left inguinal/perineal abscess with fasciitis (07/15 and 07/16) s/p third I&D with closure of wound (07/18) SUKHWINDER drain x1 in place continue empiric zosyn / vanc (07/15-) ID consulted PRN analgesics / antiemetics IDDM2 accu-checks, SSI previously on metformin a1c 12.1 started semglee increased to 35u glc in 150-200s will need insulin script on discharge chronic anemia; secondary to heavy menses / iron deficiency anemia Patient reports long heavy menstrual cycles. Denies any other bleeding. +has craving for ice iron studies consistent with iron deficiency anemia (iron 26, tsat%:10.5) Discussed with patient to continue oral iron supplementation on discharge s/p IV iron x1 bag. Hypertension confirm home meds, restart as appropriate IV hydralazine for now VTE: heparin sq Code: Full Dispo: Home, later today vs tomorrow Pending surgical recs / pain control / glc stable
[2023-07-20] MEDS: VANCOMYCIN 1.5 GM in NA CHLORIDE 0.9% 500 ML IVPB SCH (12:59)
[2023-07-20 13:08] VITALS: BP 135/92; TEMP 97.1
--- NOTE | 2023-07-21 08:13 | P.DS ---
Admission Date: 07/16/23 Discharge Date: 07/20/23 Disposition: ROUTINE DISCHARGE Discharge Condition: GOOD Reason for Admission: Left groin abscess Consultations: General surgery - Dr. De La Torre Infectious Disease - Dr. Robin Brief History of Present Illness: 43-yo F, PMH: hypertension diabetes mellitus, previous uterine cancer history Patient who presented because of foul-smelling odor from her left groin area. She admits to some swelling and pain over the groin/perineal area. She denies any fever or chills. She admitted to increasing weakness and malaise. She admits to some nausea but no vomiting. On arrival in the ED she was noted with stable vitals both tachycardia with heart rate in the 130s. Examination shows left groin abscess. General surgery consult was obtained. Patient was taken to the OR [place] and have incision and drainage of the left groin for ascites with extension into the perineal area. Patient is being transferred to the floor now. She is scheduled for repeat extensive debridement of the area again in the a.m. Hospital Course: Problem List: Complicated Left inguinal/perineal abscess with fasciitis, s/p I&D x3 (07/15, 07/16, and 07/18 with closure of wound) IDDM2 chronic anemia; secondary to heavy menses / iron deficiency anemia Hypertension Hx uterine cancer Physician Discharge Instructions: Patient presented groin pain/swelling and was found to have a complicated left inguinal/perineal abscess with fasciitis seen on CT. Dr. De La Torre, general surgeon, was consulted. Patient was taken to the OR for I&D with washout of abscess/fasciitis on 07/15 and 07/16, and returned to the OR on 07/18 for 3rd I&D with closure of wound. Blood cultures without growth since 07/15. Surgical wound culture grew near- pansensitive Klebsiella Pneumoniae resistant only to ampicillin. Patient was given empiric zosyn / vanc while hospitalized and is to complete ~10 days of oral augmentin per ID. Patient is to follow up with Dr. De La Torre next week for further management / SUKHWINDER drain removal. Patient was feeling better, afebrile without leukocytosis, groin pain/swelling improved, and was deemed stable for discharge. During her hospitalization, glc levels fluctuated between 200-400s. A1c this hospitalization was 12.1. Patient reports being previously on metformin but has never needed insulin in the past. Patient received semglee while hospitalized and discussed with patient she will need to continue insulin on discharge. Advised to check glucose levels around the same time each day. Keep daily diary of readings in case insulin dose needs adjustments. Patient was noted to be anemic this hospitalization. Patient reports history of long heavy menstrual cycles. Iron studies this hospitalization consistent with iron deficiency anemia. (iron 26, tsat% 10.5) Suspect multifactorial etiology of anemia secondary to heavy menses with some component of iron deficiency anemia. Patient received 1 bag of IV iron this hospitalization and advised patient to start oral iron supplementation on discharge. Advised to recheck iron levels in a few months. Medications: Augmentin x10 days Iron tablets Insulin Continue other medications as previously prescribed. Follow up: PCP 3-[address] De La Torre in ~1 week Please call to schedule / confirm appointments Physical Exam: GEN: Alert, oriented, NAD CV: Regular rate and rhythm, no edema Pulm: Nonlabored respirations on room air, clear bilaterally ABD: Soft, nontender, nondistended Integumentary: Left inguinal region with dressing in place c/d/i Neuro: Normal speech, normal affect Vital Signs/Physical Exam: Temp Pulse Resp BP Pulse Ox 97.1 F 100 H 18 135/92 H 98 07/20/23 12:00 07/20/23 12:00 07/20/23 13:03 07/20/23 12:00 07/20/23 13:03 Laboratory Data at Discharge: WBC 8.60 thou/uL (4.3-10.9) 07/20/23 03:23 Hgb 8.1 g/dL (12.0-15.0) L 07/20/23 03:23 Hct 26.2 % (36.0-45.0) L 07/20/23 03:23 Plt Count 268 thou/uL (152-406) 07/20/23 03:23 PT 13.0 SECONDS (9.5-12.5) H 07/16/23 16:36 INR 1.19 07/16/23 16:36 APTT 26.8 SECONDS (24.3-36.9) 07/16/23 16:36 Sodium 135 mEq/L (136-145) L 07/20/23 03:23 Potassium 4.0 mEq/L (3.5-5.1) D 05/10/24 03:23 BUN 7 mg/dL (7-18) 07/20/23 03:23 Creatinine 0.56 mg/dL (0.55-1.02) 07/20/23 03:23 Glucose 205 mg/dL (74-106) H 07/20/23 03:23 Magnesium 1.7 mg/dL (1.6-2.4) 07/20/23 03:23 Total Bilirubin 0.4 mg/dL (0.2-1.0) 07/16/23 16:36 AST 5 U/L (15-37) L 07/16/23 16:36 ALT 12 U/L (13-56) L 07/16/23 16:36 Alkaline Phosphatase 107 U/L (45-117) 07/16/23 16:36 Home Medications: Metformin HCl [Glucophage*] 500 mg PO BIDWM 07/17/23 Insulin Detemir [Levemir Flexpen] 45 unit SQ DAILY 30 Days #15 ml 07/19/23 Amox/Clavulanate [Augmentin 875-125 Tab] 1 each PO BID 10 Days #20 tab 07/20/23 Ferrous Sulfate 325 mg PO DAILY 30 Days #30 tab 07/20/23 Oxycodone HCl/Acetaminophen [Percocet 5/325 Tab*] 1 tab PO Q6H PRN #20 tab 07/20/23 New Medications: Amox/Clavulanate [Augmentin 875-125 Tab] 1 each PO BID 10 Days #20 tab Ferrous Sulfate 325 mg PO DAILY 30 Days #30 tab Insulin Detemir [Levemir Flexpen] 45 unit SQ DAILY 30 Days #15 ml Oxycodone HCl/Acetaminophen [Percocet 5/325 Tab*] 1 tab PO Q6H PRN #20 tab PRN Reason: Pain Scale 5-7 (Moderate) Physician Discharge Instructions: Physician Discharge Instructions: Patient presented groin pain/swelling and was found to have a complicated left inguinal/perineal abscess with fasciitis seen on CT. Dr. De La Torre, general surgeon, was consulted. Patient was taken to the OR for I&D with washout of abscess/fasciitis on 07/15 and 07/16, and returned to the OR on 07/18 for 3rd I&D with closure of wound. Blood cultures without growth since 07/15. Surgical wound culture grew near- pansensitive Klebsiella Pneumoniae resistant only to ampicillin. Patient was given empiric zosyn / vanc while hospitalized and is to complete ~10 days of oral augmentin per ID. Patient is to follow up with Dr. De La Torre next week for further management / SUKHWINDER drain removal. Patient was feeling better, afebrile without leukocytosis, groin pain/swelling improved, and was deemed stable for discharge. During her hospitalization, glc levels fluctuated between 200-400s. A1c this hospitalization was 12.1. Patient reports being previously on metformin but has never needed insulin in the past. Patient received semglee while hospitalized and discussed with patient she will need to continue insulin on discharge. Advised to check glucose levels around the same time each day. Keep daily diary of readings in case insulin dose needs adjustments. Patient was noted to be anemic this hospitalization. Patient reports history of long heavy menstrual cycles. Iron studies this hospitalization consistent with iron deficiency anemia. (iron 26, tsat% 10.5) Suspect multifactorial etiology of anemia secondary to heavy menses with some component of iron deficiency anemia. Patient received 1 bag of IV iron this hospitalization and advised patient to start oral iron supplementation on discharge. Advised to recheck iron levels in a few months. Medications: Augmentin x10 days Iron tablets Insulin Continue other medications as previously prescribed. Follow up: PCP 3-[address] De La Torre in ~1 week Please call to schedule / confirm appointments Followup: Benigno De La Torre MD [ACTIVE - CAN ADMIT] - 1 Week NONE,NONE [Primary Care Provider] - Time spent managing pt's care (in minutes): 45
== END 2023-07-20 16:28 | disposition home or self-care (01) | DRG 571 ==
LOC: ER 15:25 → ERHOLD 22:15 → 2ND 07-17 00:22
PROVIDERS: ADMIT Internal Medicine; ATTEND Hospitalist
PROC: 0JBB0ZZ Excision of Perineum Subcutaneous Tissue and Fascia, Open Approach (ICD-10-PCS; principal; 2023-07-16 21:00)
PROC: 0T9B70Z Drainage of Bladder with Drainage Device, Via Natural or Artificial Opening (ICD-10-PCS; 2023-07-17)
PROC: 0JDB0ZZ Extraction of Perineum Subcutaneous Tissue and Fascia, Open Approach (ICD-10-PCS; 2023-07-19)
DX: L02.214 Cutaneous abscess of groin (principal); E87.1 Hypo-osmolality and hyponatremia; Z68.41 Body mass index [BMI] 40.0-44.9, adult; E66.9 Obesity, unspecified; I10 Essential (primary) hypertension; D50.9 Iron deficiency anemia, unspecified; E11.65 Type 2 diabetes mellitus with hyperglycemia; M72.9 Fibroblastic disorder, unspecified; L02.215 Cutaneous abscess of perineum; F17.210 Nicotine dependence, cigarettes, uncomplicated; Z85.42 Personal history of malignant neoplasm of other parts of uterus; Z79.84 Long term (current) use of oral hypoglycemic drugs; Z79.899 Other long term (current) drug therapy
CPT/HCPCS: 36415; 72193; 80048; 80053; 80202; 82805; 82947; 83036; 83540; 83605; 83735; 84466; 84703; 85025; 85610; 85730; 87040; 87070; 87075; 87077; 87186; 87205; 93005; 94010; 96361; 96365; 96375; 99285; J1644; J1815; J2001; J2250; J2405; J2543; J2704; J2916; J3010; J7030; J7040; J7050; J7120; Q9967